=== PATIENT | male | born 1935 | race Caucasian/White ===

== ENCOUNTER 2019-01-23 14:40 | Emergency (ER) | payer OTHER, MEDICARE ==
--- NOTE | 2019-01-23 16:25 | RAD REPORT ---
EXAM DESCRIPTION: RADSacrum And Coccyx01/23/2019 4:00 pm CLINICAL HISTORY: Back pain status post fall FINDINGS: No fracture is seen. Osteoporosis
--- NOTE | 2019-01-23 17:09 | ER ---
Nurse's Notes [facility] Name: Leroy Palumbo Age: 83 yrs Sex: Male : 1935 Arrival Date: 01/23/2019 Time: 14:45 Bed 14 Private MD: Unknown, Unknown Diagnosis: Fracture of coccyx Presentation: 01/23 14:53 Presenting complaint: Patient states: i fell off my walker and hurt my tail bone, it hj happened a week ago; i have chronic back problems;. Transition of care: patient was not received from another setting of care. Onset of symptoms was January 23, 2019. Risk Assessment: Do you want to hurt yourself or someone else? Patient reports no desire to harm self or others. Initial Sepsis Screen: Does the patient meet any 2 criteria? No. Patient's initial sepsis screen is negative. Does the patient have a suspected source of infection? No. Patient's initial sepsis screen is negative. Care prior to arrival: None. 14:53 Method Of Arrival: Ambulatory 14:53 Acuity: LOI 4 hj Historical: - Allergies: 14:55 No Known Allergies; hj - PMHx: 14:55 chronic back problem; hj - PSHx: 14:55 back surgery; hj - Immunization history:: Adult Immunizations unknown. - Social history:: Smoking status: Patient/guardian denies using tobacco. - Ebola Screening: : No symptoms or risks identified at this time. Screenin:29 Abuse screen: Denies threats or abuse. Denies injuries from another. Nutritional ph screening: No deficits noted. Tuberculosis screening: No symptoms or risk factors identified. Fall Risk None identified. Assessment: 15:35 General: Appears in no apparent distress. comfortable, well groomed, Behavior is calm, ph cooperative, appropriate for age. Pain: Complains of pain in coccyx. Neuro: Level of Consciousness is awake, alert, obeys commands, Oriented to person, place, time, situation. Cardiovascular: Capillary refill < 3 seconds in bilateral Patient's skin is warm and dry. Respiratory: Airway is patent Respiratory effort is even, unlabored. Derm: Skin is intact, is healthy with good turgor, Skin is pink, warm \T\ dry. Musculoskeletal: Circulation, motion, and sensation intact. Range of motion: intact in all extremities. 16:30 Reassessment: Patient appears in no apparent distress at this time. Patient and/or ph family updated on plan of care and expected duration. Pain level reassessed. Patient is alert, oriented x 3, equal unlabored respirations, skin warm/dry/pink. 17:21 Reassessment: Patient appears in no apparent distress at this time. Patient and/or ph family updated on plan of care and expected duration. Pain level reassessed. Patient is alert, oriented x 3, equal unlabored respirations, skin warm/dry/pink. Pt d/c home w/ SO. Vital Signs: 14:55 BP 156 / 66; Pulse 65; Resp 18; Temp 98.1(O); Pulse Ox 99% on R/A; Weight 127.01 kg; hj Height 6 ft. 0 in. (182.88 cm); Pain 10/10; 17:31 BP 147 / 70; Pulse 64; Resp 18; Temp 97.8; Pulse Ox 99% on R/A; ph 14:55 Body Mass Index 37.98 (127.01 kg, 182.88 cm) ED Course: 14:45 Patient arrived in ED. ag5 14:46 Unknown, Unknown is Private Physician. ag5 14:54 Triage completed. hj 14:55 Arm band placed on left wrist. hj 15:07 Ajay Hilton NP is PHCP. pm1 15:07 Ran Cleaning MD is Attending Physician. pm1 15:08 Sonja Flood, SARA is Primary Nurse. ph 16:01 Sacrum And Coccyx XRAY In Process Unspecified. EDMS 17:30 Patient has correct armband on for positive identification. Bed in low position. Call ph light in reach. Side rails up X 1. Pulse ox on. NIBP on. 17:30 No provider procedures requiring assistance completed. Patient did not have IV access ph during this emergency room visit. Administered Medications: No medications were administered Outcome: 17:08 Discharge ordered by . pm1 17:31 Discharged to home via wheelchair, with significant other. ph 17:31 Condition: good 17:31 Discharge instructions given to patient, significant other, Instructed on discharge instructions, follow up and referral plans. Demonstrated understanding of instructions, follow-up care. 17:32 Patient left the ED. ph Signatures: Dispatcher [employer] EDNJ Sonja Flood RN RN ph Bairon Thakur RN RN Ajay Hilton, GREGORIO FOCUS PULLER pm1 Julito Pringle ag5 Corrections: (The following items were deleted from the chart) 14:54 14:52 Presenting complaint: [facility] 14:56 14:55 127.01 kg; Height 6 ft. 0 in.; BMI: 37.9; Pain 10; [facility] 14:57 14:55 Pulse 65bpm; Resp 18bpm; Pulse Ox 99% RA; Temp 98.1F Oral; 127.01 kg; Height 6 hj ft. 0 in.; BMI: 37.9; Pain 10; hj
--- NOTE | 2019-01-23 17:09 | EDPHYS ---
Physician Documentation [facility] Name: Leroy Palumbo Age: 83 yrs Sex: Male : 1935 Arrival Date: 01/23/2019 Time: 14:45 Bed 14 Private MD: Unknown, Unknown ED Physician Ran Cleaning HPI: 01/23 16:05 This 83 yrs old Male presents to ER via Ambulatory with complaints of Fall pm1 Injury. 16:05 Details of fall: The patient fell from an upright position, while standing. Onset: The pm1 symptoms/episode began/occurred 1 week(s) ago. Associated injuries: The patient sustained coccyx. Severity of symptoms: in the emergency department the symptoms are unchanged. The patient has not experienced similar symptoms in the past. The patient has not recently seen a physician. Patient with fall injury 1 week ago. Patient with mechanical fall while walking and landed on his rear end. No headache, head injury, neck pain, LOC, vomiting. Historical: - Allergies: 14:55 No Known Allergies; hj - PMHx: 14:55 chronic back problem; hj - PSHx: 14:55 back surgery; hj - Immunization history:: Adult Immunizations unknown. - Social history:: Smoking status: Patient/guardian denies using tobacco. - Ebola Screening: : No symptoms or risks identified at this time. ROS: 16:08 Constitutional: Negative for fever, chills, and weight loss, Eyes: Negative for injury, pm1 pain, redness, and discharge, ENT: Negative for injury, pain, and discharge, Neck: Negative for injury, pain, and swelling, Cardiovascular: Negative for chest pain, palpitations, and edema, Respiratory: Negative for shortness of breath, cough, wheezing, and pleuritic chest pain, Abdomen/GI: Negative for abdominal pain, nausea, vomiting, diarrhea, and constipation. 16:08 : Negative for injury, bleeding, discharge, and swelling, MS/Extremity: Negative for injury and deformity, Skin: Negative for injury, rash, and discoloration, Neuro: Negative for headache, weakness, numbness, tingling, and seizure. 16:08 Back: Positive for of the sacrum, Negative for radiated pain. Exam: 16:08 Constitutional: This is a well developed, well nourished patient who is awake, alert, pm1 and in no acute distress. Head/Face: Normocephalic, atraumatic. Eyes: Pupils equal round and reactive to light, extra-ocular motions intact. Lids and lashes normal. Conjunctiva and sclera are non-icteric and not injected. Cornea within normal limits. Periorbital areas with no swelling, redness, or edema. ENT: Nares patent. No nasal discharge, no septal abnormalities noted. Tympanic membranes are normal and external auditory canals are clear. Oropharynx with no redness, swelling, or masses, exudates, or evidence of obstruction, uvula midline. Mucous membranes moist. Neck: Trachea midline, no thyromegaly or masses palpated, and no cervical lymphadenopathy. Supple, full range of motion without nuchal rigidity, or vertebral point tenderness. No Meningismus. Chest/axilla: Normal chest wall appearance and motion. Nontender with no deformity. No lesions are appreciated. Cardiovascular: Regular rate and rhythm with a normal S1 and S2. No gallops, murmurs, or rubs. Normal PMI, no JVD. No pulse deficits. Respiratory: Lungs have equal breath sounds bilaterally, clear to auscultation and percussion. No rales, rhonchi or wheezes noted. No increased work of breathing, no retractions or nasal flaring. Abdomen/GI: Soft, non-tender, with normal bowel sounds. No distension or tympany. No guarding or rebound. No evidence of tenderness throughout. 16:08 Skin: Warm, dry with normal turgor. Normal color with no rashes, no lesions, and no evidence of cellulitis. MS/ Extremity: Pulses equal, no cyanosis. Neurovascular intact. Full, normal range of motion. 16:08 Back: normal spinal alignment noted, vertebral tenderness, is appreciated at sacrum and coccyx. 16:08 Neuro: Orientation: is normal, Motor: is normal, moves all fours, Sensation: is normal, no obvious gross deficits. Vital Signs: 14:55 BP 156 / 66; Pulse 65; Resp 18; Temp 98.1(O); Pulse Ox 99% on R/A; Weight 127.01 kg; hj Height 6 ft. 0 in. (182.88 cm); Pain 10/10; 17:31 BP 147 / 70; Pulse 64; Resp 18; Temp 97.8; Pulse Ox 99% on R/A; ph 14:55 Body Mass Index 37.98 (127.01 kg, 182.88 cm) MDM: 15:16 Patient medically screened. pm1 17:07 Data reviewed: vital signs. Data interpreted: Pulse oximetry: on room air is 99 %. pm1 Interpretation: normal. Counseling: I had a detailed discussion with the patient and/or guardian regarding: the historical points, exam findings, and any diagnostic results supporting the discharge/admit diagnosis, radiology results, the need for outpatient follow up, to return to the emergency department if symptoms worsen or persist or if there are any questions or concerns that arise at home. 01/23 15:22 Order name: Sacrum And Coccyx XRAY; Complete Time: 17:06 pm1 Administered Medications: No medications were administered Disposition: 18:42 Co-signature as Attending Physician, Ran Cleaning MD. rn Disposition: 01/23/19 17:08 Discharged to Home. Impression: Fracture of coccyx. - Condition is Stable. - Discharge Instructions: Tailbone Injury. - Medication Reconciliation Form, Thank You Letter, Antibiotic Education, Prescription Opioid Use form. - Follow up: Emergency Department; When: As needed; Reason: Worsening of condition. Follow up: Private Physician; When: 2 - 3 days; Reason: Recheck today's complaints, Continuance of care, Re-evaluation by your physician. - Problem is new. - Symptoms have improved. Signatures: Dispatcher [employer] EDMS Ran Cleaning MD MD rn Hall, Patricia, RN RN ph Joaquin, Henry, RN RN hj Marinas, Patrick, GREGORIO DEPARTMENT ADMINISTRATOR pm1 Corrections: (The following items were deleted from the chart) 17:11 17:08 01/23/2019 17:08 Discharged to Home. Impression: Contusion of lower back and pm1 pelvis - sacrum and coccyx. Condition is Stable. Forms are Medication Reconciliation Form, Thank You Letter, Antibiotic Education, Prescription Opioid Use. Follow up: Emergency Department; When: As needed; Reason: Worsening of condition. Follow up: Private Physician; When: 2 - 3 days; Reason: Recheck today's complaints, Continuance of care, Re-evaluation by your physician. Problem is new. Symptoms have improved. pm1 17:32 17:11 01/23/2019 17:08 Discharged to Home. Impression: Fracture of coccyx. Condition is ph Stable. Discharge Instructions: Tailbone Injury. Forms are Medication Reconciliation Form, Thank You Letter, Antibiotic Education, Prescription Opioid Use. Follow up: Emergency Department; When: As needed; Reason: Worsening of condition. Follow up: Private Physician; When: 2 - 3 days; Reason: Recheck today's complaints, Continuance of care, Re-evaluation by your physician. Problem is new. Symptoms have improved. pm1
== END 2019-01-23 17:32 | disposition home or self-care (01) ==
LOC: ER 14:40
DX: S32.2XXA Fracture of coccyx, initial encounter for closed fracture (principal); W18.30XA Fall on same level, unspecified, initial encounter; Y93.01 Activity, walking, marching and hiking; Y92.9 Unspecified place or not applicable
CPT/HCPCS: 72220; 99283

== ENCOUNTER 2019-02-13 11:23 | Emergency (ER) | payer OTHER, MEDICARE ==
--- NOTE | 2019-02-13 12:22 | RAD REPORT ---
EXAM DESCRIPTION: RAD - Knee Left 3 View - 02/13/2019 12:15 pm CLINICAL HISTORY: Left knee pain status post injury FINDINGS: No evidence of loosening of a left knee prosthesis No fracture or dislocation is seen. Osteoporosis If the patient has clinical symptoms to suggest an occult fracture CT would be recommended
--- NOTE | 2019-02-13 13:13 | ER ---
Nurse's Notes [facility] Name: Leroy Palumbo Age: 83 yrs Sex: Male : 1935 Arrival Date: 02/13/2019 Time: 11:25 Bed 23 Private MD: Osvaldo Kaba V Diagnosis: Pain in left knee Presentation: 02/13 11:29 Presenting complaint: Patient states: Fell onto left knee on Monday, reports pain since.aj 11:29 Acuity: LOI 4 aj 11:30 Care prior to arrival: None. Mechanism of Injury: Fall from standing position. Trauma aa5 event details: Injury occurred in the [facility]. 11:30 Method Of Arrival: Wheelchair aa5 11:30 Transition of care: patient was not received from another setting of care. Onset of aa5 symptoms was February 11, 2019. Risk Assessment: Do you want to hurt yourself or someone else? Patient reports no desire to harm self or others. Initial Sepsis Screen: Does the patient meet any 2 criteria? No. Patient's initial sepsis screen is negative. Does the patient have a suspected source of infection? No. Patient's initial sepsis screen is negative. Trauma Activation: Not Applicable Physician: ED Physician; Name: ; Notified At: ; Arrived At: Physician: General Surgeon; Name: ; Notified At: ; Arrived At: Physician: Radiology; Name: ; Notified At: ; Arrived At: Physician: Respiratory; Name: ; Notified At: ; Arrived At: Physician: Lab; Name: ; Notified At: ; Arrived At: Historical: - Allergies: 11:31 No Known Allergies; aj - PMHx: 11:35 chronic back problem; aa5 - PSHx: 11:35 back surgery; aa5 - Immunization history:: Flu vaccine status is unknown. - Immunization history: Last tetanus immunization: unknown. - Ebola Screening: : No symptoms or risks identified at this time. - Social history:: Smoking status: unknown. Screenin:40 Abuse screen: Denies threats or abuse. Nutritional screening: No deficits noted. aa5 Tuberculosis screening: No symptoms or risk factors identified. Fall Risk Fall in past 12 months (25 points). Ambulatory Aid- Crutches/Cane/Walker (15 pts). Total Hutchison Fall Scale indicates Low Risk Score (25-44 pts). Fall prevention measures have been instituted. Side Rails Up X 2 Placed close to Nursing Station. Primary Survey: 11:30 NO uncontrolled hemorrhage observed. A: The patient is alert. Airway: patent. aa5 Breathing/Chest: Chest inspection: symmetrical rise and fall of the chest. Circulation: Skin color: pink. Disability Alert. Exposure/Environment: There is no evidence of uncontrolled external bleeding. 11:40 Reassessment Airway Airway Patent Breathing/Chest Respiratory pattern Regular aa5 Respiratory effort Spontaneous Unlabored Chest inspection Symmetrical Circulation Color [place] Disability Alert. Secondary Survey: 11:30 HEENT: No deficits noted. Gastrointestinal: No deficits noted. : No deficits noted. aa5 Musculoskeletal: Reports pain in left knee. Assessment: 11:30 General: Appears in no apparent distress. comfortable, Behavior is calm, cooperative, aj appropriate for age. Pain: Complains of pain in left knee. Musculoskeletal: Reports pain in left knee. 11:35 General: Appears comfortable, Behavior is calm, cooperative. Pain: Complains of pain in aa5 left knee. Neuro: Level of Consciousness is awake, alert, obeys commands, Oriented to person, place, time, situation. Cardiovascular: Patient's skin is warm and dry. Respiratory: Airway is patent Respiratory effort is even, unlabored, Respiratory pattern is regular, symmetrical. GI: No signs and/or symptoms were reported involving the gastrointestinal system. : No signs and/or symptoms were reported regarding the genitourinary system. EENT: No signs and/or symptoms were reported regarding the EENT system. Derm: Skin is pink, warm \T\ dry. Musculoskeletal: Range of motion: intact in all extremities, Reports pain in left knee. Vital Signs: 11:30 BP 136 / 66; Pulse 94; Resp 16; Temp 98.4; Pulse Ox 96% on R/A; Weight 122.47 kg; aj Height 6 ft. 0 in. (182.88 cm); 13:01 BP 120 / 79; Pulse 72; Resp 16 S; Pulse Ox 98% on R/A; mg2 13:02 BP 120 / 72; Pulse 75; Resp 18; Pulse Ox 98% on R/A; mg2 13:41 BP 118 / 75; Pulse 76; Resp 18; Temp 98; Pulse Ox 100% on R/A; Pain 2/10; mg2 11:30 Body Mass Index 36.62 (122.47 kg, 182.88 cm) aj [place] Coma Score: 11:30 Eye Response: spontaneous(4). Verbal Response: oriented(5). Motor Response: obeys aj commands(6). Total: 15. Trauma Score (Adult): 11:30 Eye Response: spontaneous(1); Verbal Response: oriented(1); Motor Response: obeys aj commands(2); Systolic BP: > 89 mm Hg(4); Respiratory Rate: 10 to 29 per min(4); [place] Score: 15; Trauma Score: 12 13:41 Eye Response: spontaneous(1); Verbal Response: oriented(1); Motor Response: obeys mg2 commands(2); Systolic BP: > 89 mm Hg(4); Respiratory Rate: 10 to 29 per min(4); [place] Score: 15; Trauma Score: 12 ED Course: 11:25 Patient arrived in ED. rg4 11:26 Osvaldo Kaba MD is Private Physician. rg4 11:29 Triage completed. aj 11:30 Arm band placed on left wrist. Patient placed in waiting room, Patient notified of wait aj time. 11:30 Patient has correct armband on for positive identification. Bed in low position. Call aa5 light in reach. Side rails up X2. Adult w/ patient. 11:40 [facility] Shepherd [facility]C [facility] kb 11:40 Gio Nair MD is Attending Physician. kb 11:40 Patient maintains SpO2 saturation greater than 95% on room air. Thermoregulation: warm aa5 blanket given to patient. 11:44 Anastacia Willoughby RN is Primary Nurse. aa5 12:10 X-ray completed. Portable x-ray completed in exam room. Patient tolerated procedure sw well. 12:13 Knee Left 3 View XRAY In Process Unspecified. EDMS 12:55 Report given to SARA Luque. aa5 13:12 Osvaldo Kaba MD is Referral Physician. kb 13:42 No provider procedures requiring assistance completed. Patient did not have IV access mg2 during this emergency room visit. Administered Medications: No medications were administered Intake: 13:00 PO: 0ml; Total: 0ml. mg2 Outcome: 13:12 Discharge ordered by . kb 13:43 Discharged to home via wheelchair, with family. mg2 13:43 Condition: stable 13:43 Discharge instructions given to family, Instructed on discharge instructions, follow up and referral plans. Demonstrated understanding of instructions, follow-up care, splint care. 13:44 Patient's length of stay in the Emergency Department was greater than 2 hours. awaiting mg2 disposition. Patient's length of stay extended due to 13:45 Patient left the ED. mg2 Signatures: Dispatcher [employer] EDKenna Aguirre, CHARITY FUNDRAISER-C CHARITY FUNDRAISER-Rola Willson RN RN Anastacia Cruz, RN RN [id number] Carmina Roldan Rubi rg4 Rebel Jacob RN RN mg2
--- NOTE | 2019-02-13 13:13 | EDPHYS ---
Physician Documentation [facility] Name: Leroy Palumbo Age: 83 yrs Sex: Male : 1935 Arrival Date: 02/13/2019 Time: 11:25 Bed 23 Private MD: Osvaldo Kaba V ED Physician Gio Nair HPI: 02/13 13:17 This 83 yrs old Male presents to ER via Wheelchair with complaints of Fall kb Injury, Knee Pain. 12:50 Details of fall: The patient fell from an upright position. kb 13:17 Onset: The symptoms/episode began/occurred 3 day(s) ago. Associated injuries: The kb patient sustained left knee, painful injury, swelling. Severity of symptoms: At their worst the symptoms were moderate, in the emergency department the symptoms are unchanged. The patient has not experienced similar symptoms in the past. The patient has not recently seen a physician. Pt reports he fell onto his left knee 3 days ago. c/o pain to that knee. Uses walked due to back pain and has pain medication at home, but wanted to make sure there wasn't anything wrong. Historical: - Allergies: 11:31 No Known Allergies; aj - PMHx: 11:35 chronic back problem; aa5 - PSHx: 11:35 back surgery; aa5 - Immunization history:: Flu vaccine status is unknown. - Immunization history: Last tetanus immunization: unknown. - Ebola Screening: : No symptoms or risks identified at this time. - Social history:: Smoking status: unknown. ROS: 12:46 Constitutional: Negative for fever, chills, and weight loss, Neck: Negative for injury, kb pain, and swelling, Cardiovascular: Negative for chest pain, palpitations, and edema, Respiratory: Negative for shortness of breath, cough, wheezing, and pleuritic chest pain, Abdomen/GI: Negative for abdominal pain, nausea, vomiting, diarrhea, and constipation, Skin: Negative for injury, rash, and discoloration, Neuro: Negative for headache, weakness, numbness, tingling, and seizure. 12:46 MS/extremity: Positive for injury or acute deformity, pain, swelling, of the left knee, Negative for Exam: 12:47 Constitutional: This is a well developed, well nourished patient who is awake, alert, kb and in no acute distress. Head/Face: Normocephalic, atraumatic. Chest/axilla: Normal chest wall appearance and motion. Nontender with no deformity. No lesions are appreciated. Cardiovascular: Regular rate and rhythm with a normal S1 and S2. No gallops, murmurs, or rubs. Normal PMI, no JVD. No pulse deficits. Respiratory: Lungs have equal breath sounds bilaterally, clear to auscultation and percussion. No rales, rhonchi or wheezes noted. No increased work of breathing, no retractions or nasal flaring. Abdomen/GI: Soft, non-tender, with normal bowel sounds. No distension or tympany. No guarding or rebound. No evidence of tenderness throughout. Skin: Warm, dry with normal turgor. Normal color with no rashes, no lesions, and no evidence of cellulitis. Neuro: Awake and alert, GCS 15, oriented to person, place, time, and situation. Cranial nerves II-XII grossly intact. Motor strength 5/5 in all extremities. Sensory grossly intact. Cerebellar exam normal. Normal gait. 12:47 Musculoskeletal/extremity: Extremities: grossly normal except: noted in the left knee: pain, swelling, ROM: intact in all extremities, Circulation is intact in all extremities. Sensation intact. Weight bearing: can bear weight with assistance only, uses walker. Vital Signs: 11:30 BP 136 / 66; Pulse 94; Resp 16; Temp 98.4; Pulse Ox 96% on R/A; Weight 122.47 kg; aj Height 6 ft. 0 in. (182.88 cm); 13:01 BP 120 / 79; Pulse 72; Resp 16 S; Pulse Ox 98% on R/A; mg2 13:02 BP 120 / 72; Pulse 75; Resp 18; Pulse Ox 98% on R/A; mg2 13:41 BP 118 / 75; Pulse 76; Resp 18; Temp 98; Pulse Ox 100% on R/A; Pain 2/10; mg2 11:30 Body Mass Index 36.62 (122.47 kg, 182.88 cm) [place] Coma Score: 11:30 Eye Response: spontaneous(4). Verbal Response: oriented(5). Motor Response: obeys commands(6). Total: 15. Trauma Score (Adult): 11:30 Eye Response: spontaneous(1); Verbal Response: oriented(1); Motor Response: obeys aj commands(2); Systolic BP: > 89 mm Hg(4); Respiratory Rate: 10 to 29 per min(4); Andree Score: 15; Trauma Score: 12 13:41 Eye Response: spontaneous(1); Verbal Response: oriented(1); Motor Response: obeys mg2 commands(2); Systolic BP: > 89 mm Hg(4); Respiratory Rate: 10 to 29 per min(4); [place] Score: 15; Trauma Score: 12 MDM: 11:40 Patient medically screened. kb 12:50 Data reviewed: vital signs, nurses notes. Data interpreted: Pulse oximetry: on room air kb is 96 %. Interpretation: normal. Counseling: I had a detailed discussion with the patient and/or guardian regarding: the historical points, exam findings, and any diagnostic results supporting the discharge/admit diagnosis, radiology results, the need for outpatient follow up, a orthopedic surgeon, to return to the emergency department if symptoms worsen or persist or if there are any questions or concerns that arise at home. 02/13 11:29 Order name: Knee Left 3 View XRAY; Complete Time: 12:29 02/13 12:39 Order name: Knee Immobilizer; Complete Time: 12:53 kb Administered Medications: No medications were administered Disposition: 17:18 Co-signature as Attending Physician, Gio Nair MD I agree with the assessment and kdr plan of care. Disposition: 02/13/19 13:12 Discharged to Home. Impression: Pain in left knee. - Condition is Stable. - Discharge Instructions: Knee Pain, [id number]. - Medication Reconciliation Form, Thank You Letter, Antibiotic Education, Prescription Opioid Use form. - Follow up: Emergency Department; When: As needed; Reason: Worsening of condition. Follow up: Osvaldo Kaba MD; When: 2 - 3 days; Reason: Recheck today's complaints, Continuance of care, Re-evaluation by your physician. Signatures: Dispatcher [employer] EDKenna Aguirre, TALENT BUYER-C TALENT BUYER-CkRola Paz RN RN aj Rittger, Kevin, MD MD [facility] Anastacia Willoughby RN RN aa5 Rebel Jacob RN RN mg2 Corrections: (The following items were deleted from the chart) 13:45 13:12 02/13/2019 13:12 Discharged to Home. Impression: Pain in left knee. Condition is mg2 Stable. Forms are Medication Reconciliation Form, Thank You Letter, Antibiotic Education, Prescription Opioid Use. Follow up: Emergency Department; When: As needed; Reason: Worsening of condition. Follow up: Osvaldo Kaba; When: 2 - 3 days; Reason: Recheck today's complaints, Continuance of care, Re-evaluation by your physician. kb
== END 2019-02-13 13:45 | disposition home or self-care (01) ==
LOC: ER 11:23
DX: M25.562 Pain in left knee (principal)
CPT/HCPCS: 99284

== ENCOUNTER 2021-08-03 11:06 | Inpatient (IN) | payer MEDICARE, OTHER ==
[2021-08-03] MEDS ORDERED: NA CHLORIDE 0.9% 1,000 ML ONE ×2 (11:59→15:58)
[2021-08-03 12:22] LABS: Absolute Lymphocytes (CBC) 0.9 K/uL (0.7-4.9); Basophils % 0.4 % (0-1.3); Hematocrit 40.8 % (39.6-49.0); Lymphocytes % 8.9 % (15.3-44.8); MPV 7.5 fL (7.6-11.3); RBC Red Blood Cell Count 4.45 M/uL (4.33-5.43)
[2021-08-03 12:26] LABS: Protime INR 1.27
[2021-08-03 12:37] LABS: BUN Blood Urea Nitrogen 18 mg/dL (7-18); Bicarbonate 27 mmol/L (21-32); Glucose Level 134 mg/dL (74-106); Potassium 3.9 mmol/L (3.5-5.1); Sodium Level 139 mmol/L (136-145)
--- NOTE | 2021-08-03 13:34 | RAD REPORT ---
EXAM DESCRIPTION: CT - Head C Spine Cap Kristen Oliveira - 08/03/2021 1:16 pm CLINICAL HISTORY: Trauma, head and neck injury. Chest, abdomen and pelvis pain. unwitnessed fall, back pain, not eating, AMS COMPARISON: Sacrum And Coccyx dated 01/23/2019 TECHNIQUE: CT head without contrast. CT cervical spine without contrast with coronal and sagittal reformatted images. CT chest, abdomen and pelvis with IV contrast (approximately 100 mL nonionic IV contrast) with medina l and sagittal reformatted images of the spine. All CT scans are performed using dose optimization technique as appropriate and may include automated exposure control or mA/KV adjustment according to patient size. FINDINGS: CT HEAD WITHOUT CONTRAST: No intracranial hemorrhage, hydrocephalus or extra-axial fluid collection. Moderate generalized brain atrophy is present with moderate periventricular and deep white matter chronic microvascular ischemi c changes. No areas of brain edema or midline shift. The paranasal sinuses and mastoids are mostly clear. The calvarium is intact. CT CERVICAL SPINE WITHOUT CONTRAST: No fracture or subluxation. Moderate multilevel spondylosis is present throughout the cervical spine. The prevertebral soft tissues are normal in thickness. CT CHEST, ABDOMEN, PELVIS WITH CONTRAST: Mild linear opacities in both posterior lung bases likely represent atelectasis.No pneumothorax or pe ricardial/pleural fluid. No evidence of intra-abdominal visceral injury, free fluid or free air. Mild fatty liver. Small stone s are present in the right kidney without hydronephrosis. Small fat containing umbilical hernia. The bones are diffusely osteopenic. Vertebroplasty cement is seen in T11 and T12 vertebral bodies. Th ere is mild superior wedge compression deformity affecting L1 vertebral body. IMPRESSION: Questionable acute mild superior compression deformity affects the L1 vertebral body. Ot herwise, no trauma related findings are seen.
[2021-08-03 14:25] LABS: Urine Blood 2+ (Negative); Urine Glucose Negative (Negative); Urine Protein 2+ (Negative); Urine Specific Gravity >=1.030 (1.005-1.030)
[2021-08-03 15:00] LABS: Urine Bacteria <20 /HPF (NONE SEEN); Urine Mucus LIGHT /HPF (NONE SEEN); Urine RBC <5 /HPF (NONE SEEN)
--- NOTE | 2021-08-03 15:46 | EDPHYS ---
Physician Documentation [facility] Name: Leroy Palumbo Age: 85 yrs Sex: Male : 1935 Arrival Date: 08/03/2021 Time: 11:22 Bed 17 Private MD: ED Physician Ran Cleaning HPI: 08/03 12:19 This 85 yrs old Male presents to ER via EMS with complaints of Fall, back pain. rn 12:19 The patient presents with pain that is acute, and an injury. The symptoms are located rn in the low back. Onset: The symptoms/episode began/occurred 5 day(s) ago. The pain does not radiate. Associated signs and symptoms: Pertinent negatives: fever, headache, hematuria, incontinence, nausea, numbness, tingling, urinary retention. Modifying factors: The patient symptoms are alleviated by hydrocodone, the patient symptoms are aggravated by any movement. Severity of symptoms: At their worst the symptoms were moderate, in the emergency department the symptoms have improved. The patient has not experienced similar symptoms in the past. The patient has not recently seen a physician. reports fall last Monday, has been in pain in the low back since then. Reports taking hydrocodone and took 2 hydrocodone today that helps with the pain. states that patient with dementia and appears near his baseline currently. But also reports patient not eating or drinking much or getting out of bed secondary to pain recently. Denies any fever/cough/abdominal pain/vomiting/diarrhea.. Historical: - Allergies: 11:28 No Known Allergies; potts - Immunization history:: Adult Immunizations up to date. - Social history:: Patient/guardian denies using alcohol, street drugs, IV drugs, caffeine, tobacco products, Patient/guardian denies using Smoking status: Patient denies any tobacco usage or history of. - Family history:: not pertinent. - Hospitalizations: : No recent hospitalization is reported. ROS: 12:22 Constitutional: Negative for fever, chills, and weight loss, Eyes: Negative for injury, rn pain, redness, and discharge, ENT: Negative for injury, pain, and discharge, Neck: Negative for injury, pain, and swelling, Cardiovascular: Negative for chest pain, palpitations, and edema, Respiratory: Negative for shortness of breath, cough, wheezing, and pleuritic chest pain, Abdomen/GI: Negative for abdominal pain, nausea, vomiting, diarrhea, and constipation, Back: + back injury and pain : Negative for injury, bleeding, discharge, and swelling, MS/Extremity: Negative for injury and deformity, Skin: Negative for injury, rash, and discoloration, Neuro: Negative for headache, numbness, tingling, and seizure. Exam: 12:22 Constitutional: Overweight male, somnolent but awakens to voice Head/Face: rn Normocephalic, atraumatic. Eyes: Periorbital areas with no swelling, redness, or edema. ENT: Dry mucous membranes Neck: Trachea midline, no masses palpated, no vertebral point tenderness Cardiovascular: Tachycardic, irregular. No pulse deficits. Respiratory: No increased work of breathing, no retractions or nasal flaring. Abdomen/GI: Soft, non-tender Skin: Warm, dry MS/ Extremity: Pulses equal, no cyanosis. Neurovascular intact. Full, normal range of motion. Equal circumference. Neuro: Awake and alert, GCS 15, oriented to person, place, not time. Motor strength 4/5 in all extremities. Sensory grossly intact. Vital Signs: 11:24 BP 137 / 63; Pulse 131; Resp 20; Temp 97.9; Pulse Ox 92% ; Weight 117.93 kg; Height 6 potts ft. 0 in. (182.88 cm); 13:26 BP 137 / 82; Pulse 110; Resp 18; Pulse Ox 95% ; potts 14:33 BP 146 / 75; Pulse 127; Resp 18; Pulse Ox 96% 2 lpm ; mh5 16:41 BP 136 / 91; Pulse 72; Resp 18; Pulse Ox 93% ; potts 17:22 BP 122 / 100; Pulse 57; Resp 16; Pulse Ox 95% ; potts 18:21 BP 143 / 80; Pulse 96; Resp 18; Pulse Ox 96% ; potts 19:39 BP 165 / 104; Pulse 98; Resp 16; Temp 97.7; Pulse Ox 95% ; potts 11:24 Body Mass Index 35.26 (117.93 kg, 182.88 cm) potts MDM: 11:37 Patient medically screened. rn 15:44 Differential diagnosis: arthritis, Fatigue Fracture Osteoarthritis sprain, vertebral rn fracture. Data reviewed: vital signs, nurses notes, lab test result(s), radiologic studies, CT scan, and as a result, I will admit patient. Counseling: I had a detailed discussion with the patient and/or guardian regarding: the historical points, exam findings, and any diagnostic results supporting the discharge/admit diagnosis, lab results, radiology results, the need for further work-up and treatment in the hospital. Response to treatment: the patient's symptoms have mildly improved after treatment, and as a result, I will admit patient. Admission orders: after a detailed discussion of the patient's condition and case, the admit orders are written by me. ED course: Patient with L1 mild compression fracture, dehydration, malaise. Still tachycardic, will admit to Dr. Kaba for IV hydration and further care. Was notified.. 08/03 11:48 Order name: CBC with Diff; Complete Time: 13:36 08/03 11:48 Order name: Basic Metabolic Panel; Complete Time: 13:36 08/03 11:48 Order name: Protime (+inr); Complete Time: 13:36 08/03 11:48 Order name: Ptt, Activated; Complete Time: 13:36 08/03 11:48 Order name: Urine Microscopic Only; Complete Time: 15:25 08/03 14:25 Order name: Urine Dipstick-Ancillary; Complete Time: 15:25 EDPR 08/03 11:48 Order name: CT Traumagram (Head C Spine CAP W Con); Complete Time: 13:36 rn 08/03 12:21 Order name: EKG; Complete Time: 12:22 rn 08/03 16:49 Order name: COVID-19 SARS RT PCR (Document "Date of Onset" if Symptomatic) [facility] 08/03 19:25 Order name: SARS-COV-2 RT PCR [facility] 08/03 11:48 Order name: IV Start; Complete Time: 12:18 rn 08/03 11:48 Order name: Urine Dipstick-Ancillary (obtain specimen); Complete Time: 14:25 rn 08/03 12:21 Order name: EKG - Nurse/Tech; Complete Time: 12:55 rn Administered Medications: 12:18 Drug: NS 0.9% 500 ml Route: IV; Rate: bolus; Site: left antecubital; potts 16:42 Follow up: IV Status: Completed infusion potts 15:55 Drug: NS 0.9% 500 ml Route: IV; Rate: bolus; Site: left antecubital; ap3 15:55 Follow up: IV Status: Completed infusion ap3 16:04 Drug: NS 0.9% 1000 ml Route: IV; Rate: 125 ml/hr; Site: left antecubital; ap3 17:41 Follow up: Response: No adverse reaction potts 19:41 Follow up: IV Intake: 1000ml potts 16:04 Drug: Metoprolol 25 mg Route: PO; ap3 17:42 Follow up: Response: Marked relief of symptoms potts Disposition Summary: 08/03/21 15:46 Hospitalization Ordered Hospitalization Status: Observation rn Provider: Osvaldo Kaba rn Location: Telemetry/MedSurg (observation) rn Condition: Stable rn Problem: new rn Symptoms: have improved rn Bed/Room Type: Standard rn Room Assignment: 204(08/03/21 19:43) Diagnosis - Fracture of first lumbar vertebra rn - Dehydration rn - Tachycardia, unspecified rn Forms: - Medication Reconciliation Form rn - SBAR form rn Signatures: Dispatcher [employer] EDRan Keane MD MD rn Garcia, Cindy RN RN Rola Kaur RN RN 3 Pam Flores Corrections: (The following items were deleted from the chart) 11:27 11:26 PMHx: chronic back problem; [facility] 19:43 15:46 rn cg
--- NOTE | 2021-08-03 15:46 | ER ---
Nurse's Notes [facility] Name: Leroy Palumbo Age: 85 yrs Sex: Male : 1935 Arrival Date: 08/03/2021 Time: 11:22 Bed 17 Private MD: Diagnosis: Fracture of first lumbar vertebra;Dehydration;Tachycardia, unspecified Presentation: 08/03 11:24 Chief complaint: Patient states: back pain. Coronavirus screen: Client denies travel potts out of the [place] in the last 14 days. Ebola Screen: Patient denies exposure to infectious person. No symptoms or risks identified at this time. Initial Sepsis Screen: Does the patient meet any 2 criteria? RR > 20 per min. No. Patient's initial sepsis screen is negative. Does the patient have a suspected source of infection? No. Patient's initial sepsis screen is negative. Risk Assessment: Do you want to hurt yourself or someone else? Patient reports no desire to harm self or others. Onset of symptoms was July 30, 2021. 11:24 Method Of Arrival: EMS: [facility] potts 11:24 Acuity: LOI 4 potts Triage Assessment: 11:26 General: Appears comfortable, Behavior is calm, cooperative, quiet. Pain: Complains of potts pain in back. Historical: - Allergies: 11:28 No Known Allergies; potts - Immunization history:: Adult Immunizations up to date. - Social history:: Patient/guardian denies using alcohol, street drugs, IV drugs, caffeine, tobacco products, Patient/guardian denies using Smoking status: Patient denies any tobacco usage or history of. - Family history:: not pertinent. - Hospitalizations: : No recent hospitalization is reported. Screenin:28 Abuse screen: Denies threats or abuse. Denies injuries from another. Nutritional potts screening: No deficits noted. Tuberculosis screening: No symptoms or risk factors identified. Fall Risk Fall in past 12 months (25 points). Assessment: 11:27 Pain: Complains of pain in back. Musculoskeletal: Reports pain in back. potts 20:41 General: The patient is to admitted to the second floor room 204. Stephen RUIZ is the potts accepting nurse. . Vital Signs: 11:24 BP 137 / 63; Pulse 131; Resp 20; Temp 97.9; Pulse Ox 92% ; Weight 117.93 kg; Height 6 potts ft. 0 in. (182.88 cm); 13:26 BP 137 / 82; Pulse 110; Resp 18; Pulse Ox 95% ; potts 14:33 BP 146 / 75; Pulse 127; Resp 18; Pulse Ox 96% 2 lpm ; mh5 16:41 BP 136 / 91; Pulse 72; Resp 18; Pulse Ox 93% ; potts 17:22 BP 122 / 100; Pulse 57; Resp 16; Pulse Ox 95% ; potts 18:21 BP 143 / 80; Pulse 96; Resp 18; Pulse Ox 96% ; potts 19:39 BP 165 / 104; Pulse 98; Resp 16; Temp 97.7; Pulse Ox 95% ; potts 11:24 Body Mass Index 35.26 (117.93 kg, 182.88 cm) potts ED Course: 11:22 Patient arrived in ED. ds1 11:26 Triage completed. potts 11:28 Patient has correct armband on for positive identification. Bed in low position. Call potts light in reach. Side rails up X 1. Side rails up X2. Adult w/ patient. 11:28 No provider procedures requiring assistance completed. potts 11:37 Ran Cleaning MD is Attending Physician. rn 11:38 Arm band placed on. ap3 12:17 Inserted saline lock: 20 gauge in left antecubital area, using aseptic technique. Blood potts collected. 12:18 Basic Metabolic Panel Sent. potts 12:18 Protime (+inr) Sent. potts 12:18 Ptt, Activated Sent. potts 12:18 CBC with Diff Sent. potts 13:16 CT Traumagram (Head C Spine CAP W Con) In Process Unspecified. EDMS 13:23 Inserted saline lock:. potts 13:26 Inserted saline lock: 22 gauge in left wrist, using aseptic technique. potts 13:31 Pam Flores is Primary Nurse. potts 14:25 Urine Microscopic Only Sent. potts 15:45 Osvaldo Kaba MD is Hospitalizing Provider. rn 17:21 COVID-19 SARS RT PCR (Document "Date of Onset" if Symptomatic) Sent. potts Administered Medications: 12:18 Drug: NS 0.9% 500 ml Route: IV; Rate: bolus; Site: left antecubital; potts 16:42 Follow up: IV Status: Completed infusion potts 15:55 Drug: NS 0.9% 500 ml Route: IV; Rate: bolus; Site: left antecubital; ap3 15:55 Follow up: IV Status: Completed infusion ap3 16:04 Drug: NS 0.9% 1000 ml Route: IV; Rate: 125 ml/hr; Site: left antecubital; ap3 17:41 Follow up: Response: No adverse reaction potts 19:41 Follow up: IV Intake: 1000ml potts 16:04 Drug: Metoprolol 25 mg Route: PO; ap3 17:42 Follow up: Response: Marked relief of symptoms potts Intake: 19:41 IV: 1000ml; Total: 1000ml. potts Outcome: 15:46 Decision to Hospitalize by Provider. rn 20:41 Admitted to Med/surg accompanied by tech. potts 20:41 Condition: stable 20:41 Instructed on the need for admit. 21:03 Patient left the ED. mw2 Signatures: Dispatcher [employer] EDID Bernadine Schwartz ds1 Ran Cleaning MD MD rn Martinez, Maria mh5 Prokisch, Amanda, RN RN ap3 Rita Kate mw2 JarrettStagePam poe Corrections: (The following items were deleted from the chart) 11:27 11:26 PMHx: chronic back problem; potts potts
[2021-08-03] MEDS ORDERED: METOPROLOL TAR 25 MG TAB ONE (15:58)
--- NOTE | 2021-08-03 20:01 | P.HP ---
Certification for Inpatient Patient admitted to: Observation With expected LOS: <2 Midnights Practitioner: I am a practitioner with admitting privileges, knowledge of patient current condition, hospital course, and medical plan of care. Services: Services provided to patient in accordance with Admission requirements found in Title 42 Section 412.3 of the Code of Federal Regulations Patient History Date of Service: 08/03/21 Reason for admission: FALLEN AND NOT WALKING History of Present Illness: MR VAUGHN HAS SEVERE DEMENTIA NAD HE FELL ON THE BUTT A FEW DAYS AGO. USUALLY HE WALKS WITH WALKER. HE FELL AND IS NOT ABLE TO WALK ANY LONGER. Allergies NKDA Allergy (Uncoded 09/10/15 11:04) Unknown Home medications list reviewed: Yes Home Medications: NK [No Home Meds] 12/20/19 - Past Medical/Surgical History Diabetic: No -: Dementia -: PVD -: Lymphedema -: Osteoarthritis -: Incontinence -: Bilateral cataract removal -: Left knee replacement -: Neck & back sx - Social History Alcohol use: No Review of Systems 10-point ROS is otherwise unremarkable Physical Examination - Physical Exam General: Oriented x1, Moderate distress, Obese HEENT: Atraumatic, PERRLA, Mucous membr. moist/pink, EOMI, Sclerae nonicteric Neck: Supple, 2+ carotid pulse no bruit, No LAD, Without JVD or thyroid abnormality Respiratory: Clear to auscultation bilaterally, Normal air movement Cardiovascular: Regular rate/rhythm, Normal S1 S2 Gastrointestinal: Normal bowel sounds, No tenderness Musculoskeletal: No tenderness Integumentary: No rashes Neurological: Normal speech, Abnormal strength (NOT ABLE TO LIFT LEGS ABOVE THE BED.) Lymphatics: No axilla or inguinal lymphadenopathy - Studies Laboratory Data (last 24 hrs) 08/03/21 12:10: PT 14.6 H, INR 1.27, APTT 26.8 08/03/21 12:10: Sodium 139, Potassium 3.9, BUN 18, Creatinine 0.75, Glucose 134 H 08/03/21 12:10: WBC 9.70, Hgb 13.6, Hct 40.8, Plt Count 169 Assessment and Plan - Problems (Diagnosis) (1) Back injury Current Visit: Yes Status: Acute Plan: PT CONSULT PAIN MANAGE MRI OF LOWER SPINE AND PELVIS IN AM. (2) Alzheimer disease Current Visit: Yes Status: Chronic Plan: GRADUALLY WORSE IS TAKING CARE HIM AND DOING A GOOD JOB (3) Atrial flutter Current Visit: Yes Status: Chronic Qualifiers: Atrial flutter type: typical Qualified Code(s): I48.3 - Typical atrial flutter - Advance Directives Does patient have a Living Will: No Does patient have a Durable POA for Healthcare: No
[2021-08-03] MEDS ORDERED: ONDANSETRON 4 MG/2 ML VIAL IV PRN (21:25)
[2021-08-03] MEDS ORDERED: NA CHLORIDE 0.9% 1,000 ML IV SCH (21:25)
[2021-08-03 21:27] VITALS: BMI 33.5
--- NOTE | 2021-08-04 07:50 | EKG ---
Test Date: 2021-08-03 Test Time: 12:54:25 Cat Swamper: JOHN MEASUREMENT RESULTS: Intervals: Rate: 108 LA: QRSD: 92 QT: 344 QTc: 460 [place]: P: LA: QRS: -6 T: -6 INTERPRETIVE STATEMENTS: Atrial flutter with variable AV block Incomplete right bundle branch block Possible Anterior infarct, age undetermined Abnormal ECG Compared to ECG 08/03/2021 12:51:28 Incomplete right bundle-branch block now present Right superior axis no longer present T-wave abnormality no longer present Possible ischemia no longer present Myocardial infarct finding still present Electronically Signed On 08-04-21 07:48:11 DIETITIAN CHIEF by Chris Romano
--- NOTE | 2021-08-04 07:50 | EKG ---
Test Date: 2021-08-03 Test Time: 12:51:28 Lapper: JOHN MEASUREMENT RESULTS: Intervals: Rate: 119 NV: QRSD: 88 QT: 348 QTc: 489 [place]: P: NV: QRS: 197 T: 190 INTERPRETIVE STATEMENTS: Undetermined rhythm Right superior axis deviation Possible Anterior infarct, age undetermined T wave abnormality, consider inferior ischemia Abnormal ECG Compared to ECG 01/25/2012 15:02:30 Right superior axis now present Myocardial infarct finding now present T-wave abnormality now present Possible ischemia now present Sinus rhythm no longer present Atrial premature complex(es) no longer present Electronically Signed On 08-04-21 07:48:13 CANCELING AND CUTTING CONTROL CLERK by Chris Romano
--- NOTE | 2021-08-04 12:37 | RAD REPORT ---
EXAM DESCRIPTION: MRI - Brain Wo Cont - 08/04/2021 12:19 pm CLINICAL HISTORY: ams COMPARISON: No comparisons TECHNIQUE: Sagittal T1-weighted images were obtained along with PD/heavily T2-weighted and T2-FLAIR images. Axial DWI and ADC mapping sequences were also obtained along with coronal heavily T2-weighted images were obtained. FINDINGS: No intracranial hemorrhage, mass or acute infarction. There is no edema or shift of midlin e structures. No extra-axial fluid collections. Signal voids are seen as a normal finding in the tian r intracranial vessels. Mild to moderate chronic small vessel ischemic changes. 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 Tiny remote right cerebellar infarct. Cerebral atrophy w hich is age advanced. Mucous retention cysts in the left maxillary sinus. IMPRESSION: No acute intracranial abnormality. Specifically, no evidence of acute infarct. Mild to moderate chronic small vessel ischemic changes and age advanced cerebral atrophy.
[2021-08-04] MEDS: TRAMADOL HCL 50 MG TAB PO PRN (17:06)
--- NOTE | 2021-08-04 17:38 | P.PN ---
Subjective Date of Service: 08/04/21 Chief Complaint: FALLEN AND NOT WALKING Subjective: Improving BACK PAIN, WEAK. NO CHEST PAIN. Physical Examination - Vital Signs Temperature: 97.4 F Blood Pressure: 158/79 Pulse: 87 Respirations: 19 Pulse Ox (%): 97 - Physical Exam General: Oriented x2, Moderate distress, Obese HEENT: Atraumatic, PERRLA, EOMI Neck: Supple, JVD not distended Respiratory: Clear to auscultation bilaterally, Normal air movement Cardiovascular: Regular rate/rhythm, Normal S1 S2 Gastrointestinal: Normal bowel sounds, No tenderness Musculoskeletal: No tenderness Integumentary: No rashes Neurological: Normal speech, Normal tone, Normal affect Lymphatics: No axilla or inguinal lymphadenopathy - Studies Medications List Reviewed: Yes Assessment And Plan - Current Problems (Diagnosis) (1) Back injury Current Visit: Yes Status: Acute Plan: PT CONSULT PAIN MANAGE MRI OF LOWER SPINE AND PELVIS IN AM. CT WAS DONE. WILL AVOID MRI. START PT. REFER TO REHAB IF DOES NOT WALK. REHAB FLOOR HAS WAITING LIST. MAY NEED NH FOR A WHILE. Qualifiers: Encounter type: subsequent encounter Qualified Code(s): S39.92XD - Unspecified injury of lower back, subsequent encounter (2) Alzheimer disease Current Visit: Yes Status: Chronic Plan: GRADUALLY WORSE IS TAKING CARE HIM AND DOING A GOOD JOB (3) Atrial flutter Current Visit: Yes Status: Chronic Qualifiers: Atrial flutter type: typical Qualified Code(s): I48.3 - Typical atrial flutter
[2021-08-05] MEDS: ENOXAPARIN 40 MG/0.4 ML SQ SCH (10:17)
[2021-08-05] MEDS: LOSARTAN POTASSIUM 50 MG TABLET PO SCH (10:17)
--- NOTE | 2021-08-05 13:04 | P.PN ---
Subjective Date of Service: 08/05/21 Chief Complaint: FALLEN AND NOT WALKING Subjective: Improving BACK PAIN, WEAK. NO CHEST PAIN. HE IS ABLE TO TALK NOW. FULLY AWAKE. Physical Examination - Vital Signs Temperature: 97.4 F Blood Pressure: 131/58 Pulse: 68 Respirations: 16 Pulse Ox (%): 96 - Physical Exam General: Oriented x2, Mild distress, Obese HEENT: Atraumatic, PERRLA, EOMI Neck: Supple, JVD not distended Respiratory: Clear to auscultation bilaterally, Normal air movement Cardiovascular: Regular rate/rhythm, Normal S1 S2 Gastrointestinal: Normal bowel sounds, No tenderness Musculoskeletal: No tenderness Integumentary: No rashes Neurological: Normal speech, Normal tone, Normal affect Lymphatics: No axilla or inguinal lymphadenopathy - Studies Medications List Reviewed: Yes Assessment And Plan - Current Problems (Diagnosis) (1) Back injury Current Visit: Yes Status: Acute Plan: PT CONSULT PAIN MANAGE MRI OF LOWER SPINE AND PELVIS IN AM. CT WAS DONE. WILL AVOID MRI. STILL WAITING FOR PT TO GIVE OPINION . HE IS NOT STABLE FOR HOME YET. PHYSICALLY FALL RISK. Qualifiers: Encounter type: subsequent encounter Qualified Code(s): S39.92XD - Unspecified injury of lower back, subsequent encounter (2) Alzheimer disease Current Visit: Yes Status: Chronic Plan: GRADUALLY WORSE IS TAKING CARE HIM AND DOING A GOOD JOB (3) Atrial flutter Current Visit: Yes Status: Chronic Qualifiers: Atrial flutter type: typical Qualified Code(s): I48.3 - Typical atrial flutter
[2021-08-06] MEDS: LOSARTAN POTASSIUM 50 MG TABLET PO SCH (09:14)
[2021-08-06] MEDS: ENOXAPARIN 40 MG/0.4 ML SQ SCH (09:15)
[2021-08-06] MEDS: TRAMADOL HCL 50 MG TAB PO PRN (10:17)
[2021-08-06 20:39] VITALS: BP 168/79; TEMP 98
[2021-08-06 20:49] VITALS: O2SAT 96
--- NOTE | 2021-08-07 13:05 | P.DS ---
Admission Date: 08/04/21 Discharge Date: 08/07/21 Disposition: TRANSFER TO [facility] Reason for Admission: FALLEN AND NOT WALKING - Problems (1) Back injury Status: Acute Qualifiers: Encounter type: subsequent encounter Qualified Code(s): S39.92XD - Unspecified injury of lower back, subsequent encounter (2) Alzheimer disease Status: Chronic (3) Atrial flutter Status: Chronic Qualifiers: Atrial flutter type: typical Qualified Code(s): I48.3 - Typical atrial flutter Brief History of Present Illness: MR VAUGHN HAS SEVERE DEMENTIA NAD HE FELL ON THE BUTT A FEW DAYS AGO. USUALLY HE WALKS WITH WALKER. HE FELL AND IS NOT ABLE TO WALK ANY LONGER. Vital Signs/Physical Exam: Temp Pulse Resp BP Pulse Ox 98.0 F 74 18 168/79 H 94 08/06/21 20:00 08/06/21 20:00 08/06/21 20:00 08/06/21 20:00 08/06/21 20:00 Laboratory Data at Discharge: WBC 9.70 K/uL (4.3-10.9) 08/03/21 12:10 Hgb 13.6 g/dL (13.6-17.9) 08/03/21 12:10 Hct 40.8 % (39.6-49.0) 08/03/21 12:10 Plt Count 169 K/uL (152-406) 08/03/21 12:10 PT 14.6 SECONDS (9.5-12.5) H 08/03/21 12:10 INR 1.27 08/03/21 12:10 APTT 26.8 SECONDS (24.3-36.9) 08/03/21 12:10 Sodium 139 mmol/L (136-145) 08/03/21 12:10 Potassium 3.9 mmol/L (3.5-5.1) 08/03/21 12:10 BUN 18 mg/dL (7-18) 08/03/21 12:10 Creatinine 0.75 mg/dL (0.55-1.3) 08/03/21 12:10 Glucose 134 mg/dL (74-106) H 08/03/21 12:10 Home Medications: Enoxaparin Sodium [Lovenox 40 MG INJ] 40 mg SQ DAILY 30 Days #30 syr 08/06/21 Losartan Potassium [Cozaar] 50 mg PO DAILY 30 Days #30 tablet 08/06/21 traMADol HCL [Ultram] 50 mg PO Q4HP PRN #10 tab 08/06/21 New Medications: Losartan Potassium [Cozaar] 50 mg PO DAILY 30 Days #30 tablet Enoxaparin Sodium [Lovenox 40 MG INJ] 40 mg SQ DAILY 30 Days #30 syr traMADol HCL [Ultram] 50 mg PO Q4HP PRN #10 tab PRN Reason: Pain Followup: Osvaldo Kaba MD [Primary Care Provider] -
== END 2021-08-06 20:50 | DRG 914 ==
LOC: ER 11:06 → ERHOLD 16:10 → 2ND 20:51 → OBSVTOIN 08-04 18:23
PROVIDERS: ADMIT Internal Medicine; ATTEND Internal Medicine
DX: S39.92XA Unspecified injury of lower back, initial encounter (principal); I48.3 Typical atrial flutter; I48.92 Unspecified atrial flutter; E86.0 Dehydration; R00.0 Tachycardia, unspecified; G30.9 Alzheimer's disease, unspecified; F02.80 Dementia in other diseases classified elsewhere, unspecified severity, without behavioral disturbance, psychotic disturbance, mood disturbance, and anxiety; W18.30XA Fall on same level, unspecified, initial encounter; Z79.899 Other long term (current) drug therapy; Z96.652 Presence of left artificial knee joint; Z20.822 Contact with and (suspected) exposure to COVID-19
CPT/HCPCS: 36415; 70450; 70551; 71260; 72125; 74177; 80048; 81003; 81015; 85025; 85610; 85730; 93005; 96360; 96361; 97116; 97161; 97530; 99285; G0378; J1650; J7030; Q9967; U0003

== ENCOUNTER 2021-11-17 16:49 | Inpatient (IN) | payer OTHER ==
[2021-11-17 18:51] LABS: Absolute Lymphocytes (CBC) 1.5 K/uL (0.7-4.9); Hematocrit 33.2 % (39.6-49.0); Lymphocytes % 21.7 % (15.3-44.8); MPV 7.1 fL (7.6-11.3); RBC Red Blood Cell Count 3.66 M/uL (4.33-5.43)
[2021-11-17 18:54] LABS: Protime INR 1.44
--- NOTE | 2021-11-17 19:04 | ER ---
Nurse's Notes [facility] Name: Leroy Palumbo Age: 86 yrs Sex: Male : 1935 Arrival Date: 11/17/2021 Time: 16:52 Bed 2 Private MD: Diagnosis: Cellulitis of right lower limb;Tachycardia, unspecified;Other malaise and fatigue Presentation: 11/17 16:52 Chief complaint: EMS states: SENT FROM [facility] FOR "EXTRA SLEEPY". Coronavirus bp screen: At this time, the client does not indicate any symptoms associated with coronavirus-19. Ebola Screen: No symptoms or risks identified at this time. Initial Sepsis Screen: Does the patient meet any 2 criteria? No. Patient's initial sepsis screen is negative. Does the patient have a suspected source of infection? No. Patient's initial sepsis screen is negative. Risk Assessment: Do you want to hurt yourself or someone else? Patient reports no desire to harm self or others. Onset of symptoms is unknown. Care prior to arrival: Glucose check: 114. 16:52 Method Of Arrival: EMS: [facility] bp 16:52 Acuity: LOI 3 bp Triage Assessment: 16:52 General: Appears in no apparent distress. Behavior is drowsy. Pain: Unable to use pain bp scale. Does not appear to understand pain scale. EENT: No deficits noted. Neuro: Level of Consciousness is awake, Oriented to none Speech with expressive aphasia noted. Cardiovascular: Rhythm is sinus rhythm. Respiratory: No deficits noted. GI: No signs and/or symptoms were reported involving the gastrointestinal system. : No signs and/or symptoms were reported regarding the genitourinary system. Derm: Skin is red, Skin temperature is hot RLE. Musculoskeletal: No deficits noted. Historical: - Allergies: 16:55 No Known Allergies; bp - Home Meds: 16:55 Unable to obtain [Active]; bp - PMHx: 16:55 Unable to Obtain; bp - Immunization history:: Adult Immunizations up to date. - Social history:: Smoking status: Patient denies any tobacco usage or history of. Screenin:04 Abuse screen: Denies threats or abuse. Denies injuries from another. Nutritional bp screening: No deficits noted. Tuberculosis screening: No symptoms or risk factors identified. Fall Risk None identified. Assessment: 16:52 General: SEE TRIAGE NOTE. bp 18:00 Reassessment: No changes from previously documented assessment. Patient and/or family bp updated on plan of care and expected duration. Pain level reassessed. Vital Signs: 16:52 BP 170 / 88; Pulse 99; Resp 15; Temp 98.6; Pulse Ox 97% ; bp 18:00 BP 172 / 95; Pulse 102; Resp 15; Pulse Ox 95% ; bp 22:12 BP 147 / 47; Pulse 105; Resp 20; Pulse Ox 100% on R/A; st1 ED Course: 16:52 Patient arrived in ED. bp 16:53 Raheem Ronquillo DO is Attending Physician. ms3 16:55 Triage completed. bp 17:01 Arm band placed on. bp 17:04 Patient has correct armband on for positive identification. Bed in low position. Call bp light in reach. Side rails up X2. 17:05 Cameron Barakat, SARA is Primary Nurse. bp 18:30 Inserted saline lock: 20 gauge in right antecubital area, using aseptic technique. bp Blood collected. 19:02 Александр Cleaning MD is Hospitalizing Provider. ms3 19:41 Primary Nurse role handed off by Cameron Barakat, SARA mw2 19:49 Calista Ford, SARA is Primary Nurse. st1 20:11 COVID-19/FLU A+B (Document "Date of Onset" if Symptomatic) Sent. st1 22:13 No provider procedures requiring assistance completed. Patient admitted, IV remains in st1 place. Administered Medications: 20:27 Drug: Cefepime 1 grams Route: IVPB; Rate: 200 ml/hr; Infused Over: 30 mins; Site: right st1 antecubital; 21:13 Follow up: Response: No adverse reaction; IV Status: Completed infusion st1 20:30 Drug: NS 0.9% 1000 ml Route: IV; Rate: 1000 ml; Site: right antecubital; as6 21:12 Drug: vancoMYCIN 1 grams Route: IVPB; Infused Over: 2 hrs; Site: right antecubital; st1 Outcome: 19:03 Decision to Hospitalize by Provider. ms3 22:13 Admitted to Med/surg accompanied by tech, via stretcher, room 207, with chart. st1 22:13 Condition: good 22:13 Instructed on the need for admit. 23:18 Patient left the ED. vc1 Signatures: Cameron Barakat, RN RN bp Rita Kate mw2 Raheem Ronquillo, DO ROYAL ms3 Carlos Holly, RN RN as6 Calista Ford, RN RN st1 Marianne Callahan RN RN vc1
--- NOTE | 2021-11-17 19:04 | EDPHYS ---
Physician Documentation [facility] Name: Leroy Palumbo Age: 86 yrs Sex: Male : 1935 Arrival Date: 11/17/2021 Time: 16:52 Bed 2 Private MD: ED Physician Raheem Ronquillo HPI: 11/17 16:55 This 86 yrs old Male presents to ER via EMS with complaints of FATIGUE. ms3 16:55 The patient's rash thought to be caused by Cellulitis. The rash is located on the right ms3 hayes. The rash can be described as erythematous. Onset: The symptoms/episode began/occurred unknown. Associated signs and symptoms:. 86-year-old male presents via [facility] from Health system for increased fatigue. Per EMS nursing staff was unaware of patient's medical problems, or onset.. Historical: - Allergies: 16:55 No Known Allergies; bp - Home Meds: 16:55 Unable to obtain [Active]; bp - PMHx: 16:55 Unable to Obtain; bp - Immunization history:: Adult Immunizations up to date. - Social history:: Smoking status: Patient denies any tobacco usage or history of. ROS: 16:55 Unable to obtain ROS due to baseline dementia. ms3 Exam: 16:55 Constitutional: This is a well developed, well nourished patient who is awake, alert, ms3 and in no acute distress. Head/Face: Normocephalic, atraumatic. Eyes: Pupils equal round and reactive to light, extra-ocular motions intact. Lids and lashes normal. Conjunctiva and sclera are non-icteric and not injected. Periorbital areas with no swelling, redness, or edema. Chest/axilla: Normal chest wall appearance and motion. Nontender with no deformity. Cardiovascular: Regular rate and rhythm with a normal S1 and S2. No gallops, murmurs, or rubs. Normal PMI, no JVD. No pulse deficits. Respiratory: Lungs have equal breath sounds bilaterally, clear to auscultation and percussion. No rales, rhonchi or wheezes noted. No increased work of breathing, no retractions or nasal flaring. Abdomen/GI: Soft, non-tender, with normal bowel sounds. No distension or tympany. No guarding or rebound. No evidence of tenderness throughout. 16:55 Skin: cellulitis, that is moderate, on the right leg and right hayes. 18:43 ECG was reviewed by the Attending Physician. ms3 Vital Signs: 16:52 BP 170 / 88; Pulse 99; Resp 15; Temp 98.6; Pulse Ox 97% ; bp 18:00 BP 172 / 95; Pulse 102; Resp 15; Pulse Ox 95% ; bp 22:12 BP 147 / 47; Pulse 105; Resp 20; Pulse Ox 100% on R/A; st1 MDM: 16:54 Patient medically screened. ms3 16:55 Differential diagnosis: Cellulitis vs sepsis. ms3 19:03 Data reviewed: vital signs, nurses notes, lab test result(s). Counseling: I had a ms3 detailed discussion with the patient and/or guardian regarding: the historical points, exam findings, and any diagnostic results supporting the discharge/admit diagnosis, lab results, the need for further work-up and treatment in the hospital. ED course: Discussed case with Milton, nurse practitioner, and patient to be admitted to Dr. Cleaning. All questions were answered. Patient remains in stable condition in the emergency department.. 11/17 16:55 Order name: Blood Culture Adult (2) ms3 11/17 16:55 Order name: CBC with Diff; Complete Time: 19:01 ms3 11/17 16:55 Order name: CMP; Complete Time: 19:20 ms3 11/17 16:55 Order name: Lactate; Complete Time: 19:20 ms3 11/17 16:55 Order name: Protime (+inr); Complete Time: 19:01 ms3 11/17 16:55 Order name: Ptt, Activated; Complete Time: 19:01 ms3 11/17 19:25 Order name: Extremity Venous Uni Ltd US la1 11/17 19:25 Order name: Foot Right 3 View XRAY la1 11/17 19:41 Order name: COVID-19/FLU A+B (Document "Date of Onset" if Symptomatic) mw2 11/17 20:34 Order name: RAD EDMS 11/17 20:35 Order name: US EDMS 11/17 21:21 Order name: COVID-19/FLU A+B EDMS 11/17 16:55 Order name: Cardiac monitoring; Complete Time: 18:36 ms3 11/17 16:55 Order name: EKG - Nurse/Tech; Complete Time: 19:05 ms3 11/17 16:55 Order name: IV Saline Lock - Large Bore; Complete Time: 18:35 ms3 11/17 16:55 Order name: Labs collected and sent; Complete Time: 18:35 ms3 11/17 16:55 Order name: O2 Per Protocol; Complete Time: 18:35 ms3 11/17 16:55 Order name: O2 Sat Monitoring; Complete Time: 18:35 ms3 EC:43 Rate is 102 beats/min. QRS interval is normal. Clinical impression: Atrial fibrillation ms3 with RVR. Administered Medications: 20:27 Drug: Cefepime 1 grams Route: IVPB; Rate: 200 ml/hr; Infused Over: 30 mins; Site: right st1 antecubital; 21:13 Follow up: Response: No adverse reaction; IV Status: Completed infusion st1 20:30 Drug: NS 0.9% 1000 ml Route: IV; Rate: 1000 ml; Site: right antecubital; as6 21:12 Drug: vancoMYCIN 1 grams Route: IVPB; Infused Over: 2 hrs; Site: right antecubital; st1 Disposition: 19:04 Chart complete. ms3 Disposition Summary: 11/17/21 19:03 Hospitalization Ordered Hospitalization Status: Inpatient Admission ms3 Provider: Александр Cleaning ms3 Location: Telemetry/MedSurg (Inpatient) ms3 Condition: Stable ms3 Problem: new ms3 Symptoms: are unchanged ms3 Bed/Room Type: Standard ms3 Room Assignment: 207(11/17/21 21:44) Diagnosis - Cellulitis of right lower limb ms3 - Tachycardia, unspecified ms3 - Other malaise and fatigue ms3 Forms: - Medication Reconciliation Form ms3 - SBAR form ms3 Signatures: Dispatcher [employer] EDMS Milton Christy, ANTONIA-Radha NAVARROP-Kandis Burnett, RN RN cg Cameron Barakat RN RN Raheem Medrano DO DO ms3 Carlos Holly RN RN as6 Calista Ford RN RN st1 Corrections: (The following items were deleted from the chart) 16:55 16:55 Accucheck ordered. ms3 ms3 21:44 19:03 ms3 cg
[2021-11-17 19:09] LABS: ALT/SGPT 20 U/L (12-78); AST/SGOT 26 U/L (15-37); Albumin 2.5 g/dL (3.4-5.0); Alkaline Phosphatase 150 U/L (45-117); BUN Blood Urea Nitrogen 12 mg/dL (7-18); Bicarbonate 31 mmol/L (21-32); Bilirubin Total 0.7 mg/dL (0.2-1.0); Glucose Level 103 mg/dL (74-106); Potassium 3.7 mmol/L (3.5-5.1); Protein, Total 7.2 g/dL (6.4-8.2); Sodium Level 137 mmol/L (136-145)
--- NOTE | 2021-11-17 19:42 | P.HP ---
Certification for Inpatient Patient admitted to: Inpatient With expected LOS: >2 Midnights Patient will require the following post-hospital care: None Practitioner: I am a practitioner with admitting privileges, knowledge of patient current condition, hospital course, and medical plan of care. Services: Services provided to patient in accordance with Admission requirements found in Title 42 Section 412.3 of the Code of Federal Regulations Patient History Date of Service: 11/17/21 History of Present Illness: 86-year-old male with history of dementia, atrial flutter, hypertension currently being treated for DVT of the right lower extremity presented to the emergency department for cellulitis of the right lower extremity. Patient has had some redness/swelling over the course of the last week or so but per his ex- at bedside has gotten significantly worse. Patient was evaluated in the emergency department his labs were unremarkable and x-ray and ultrasound of the right lower extremity are currently pending. Patient was given vancomycin/cefepime ED provider wishes to admit for further evaluation and management. Patient also does have a wound present to the lateral aspect of the fifth toe. Patient was started on Eliquis 10 p.o. twice daily on the . Allergies NKDA Allergy (Uncoded 09/10/15 11:04) Unknown Home Medications: Enoxaparin Sodium [Lovenox 40 MG INJ] 40 mg SQ DAILY 30 Days #30 syr 08/06/21 Losartan Potassium [Cozaar] 50 mg PO DAILY 30 Days #30 tablet 08/06/21 traMADol HCL [Ultram] 50 mg PO Q4HP PRN #10 tab 08/06/21 - Past Medical/Surgical History Diabetic: No -: Dementia -: PVD -: Lymphedema -: Osteoarthritis -: Incontinence -: DVT -: Atrial flutter -: Hypertension -: Bilateral cataract removal -: Left knee replacement -: Neck & back sx Psychosocial/ Personal History: Patient is a resident of [facility] - Social History Alcohol use: No Caffeine use: No Place of Residence: Home Review of Systems is unable to be obtained Physical Examination - Physical Exam General: Alert, Oriented x1 HEENT: Atraumatic Neck: Supple Respiratory: Clear to auscultation bilaterally, Normal air movement Cardiovascular: Regular rate/rhythm, Normal S1 S2 Capillary refill: <2 Seconds Gastrointestinal: Normal bowel sounds, No tenderness Musculoskeletal: Erythema, Tenderness, Warmth Integumentary: Tenderness/swelling, Erythema, Warmth, Venous stasis ulcer Neurological: Normal speech - Studies Laboratory Data (last 24 hrs) 11/17/21 18:30: PT 16.0 H, INR 1.44, APTT 33.9 11/17/21 18:30: Sodium 137, Potassium 3.7, BUN 12, Creatinine 0.55, Glucose 103, Total Bilirubin 0.7, AST 26, ALT 20, Alkaline Phosphatase 150 H 11/17/21 18:30: WBC 6.9, Hgb 11.0 L D, Hct 33.2 L D, Plt Count 229 Assessment and Plan - Plan Assessment: Right lower extremity cellulitis Subacute DVT right lower extremity on anticoagulation History atrial flutter Dementia Hypertension Plan: Right lower extremity cellulitis: Continue broad-spectrum antibiotics vancomycin/cefepime, x-ray of right foot pending to evaluate ulceration of fifth toe. Patient is not diabetic does have recent history of DVT which was diagnosed approximately 1 week ago. Ultrasound pending. Subacute DVT right lower extremity on anticoagulation: Continue Eliquis was started on Eliquis 10 mg p.o. twice daily on 11/11/2021 will reduce dose to 5 mg p.o. twice daily but continue. History atrial flutter: Monitor on telemetry currently rate controlled appears to in sinus rhythm at this time. Dementia: Obtain and continue home meds Hypertension: Obtain and continue home meds DVT PPX: Continue Eliquis Code status: Full Discharge Plan: Home Plan to discharge in: 72 Hours - Advance Directives Does patient have a Living Will: No Does patient have a Durable POA for Healthcare: No - Code Status/Comfort Care Code Status Assessed: Yes (Full code) Critical Care: No Time Spent Managing Pts Care (In Minutes): 55
[2021-11-17] MEDS ORDERED: NA CHLORIDE 0.9% 1,000 ML ONE (20:17)
[2021-11-17] MEDS ORDERED: CEFEPIME 1 GM/VIAL ONE (20:17)
[2021-11-17] MEDS ORDERED: NA CHLORIDE 0.9% 250 ML ONE ×2 (20:17→23:17)
[2021-11-17] MEDS ORDERED: NA CHLORIDE 0.9% 50 ML ONE (20:17)
[2021-11-17] MEDS ORDERED: VANCOMYCIN 1 GM/VIAL ONE ×2 (20:17→23:17)
--- NOTE | 2021-11-17 20:34 | RAD REPORT ---
EXAM DESCRIPTION: RAD - Foot Right 3 View - 11/17/2021 8:15 pm CLINICAL HISTORY: Right foot pain and swelling FINDINGS: Postsurgical changes are present. No fracture or dislocation seen. No bony destructive lesion noted. Bones are osteoporotic
--- NOTE | 2021-11-17 20:34 | RAD REPORT ---
EXAM DESCRIPTION: USEkanchan Venous Uni Ltd11/17/2021 8:28 pm CLINICAL HISTORY: Right leg swelling. COMPARISON: 2019 FINDINGS: Right common femoral, superficial femoral, popliteal and right posterior tibial veins are compressible and demonstrate augmentation. Doppler demonstrates good flow. Grayscale, color and spectral analysis performed on all vessels IMPRESSION: No evidence of deep venous thrombosis involving the right lower extremity.
[2021-11-17 21:21] LABS: SARS-COV-2 RT PCR NEGATIVE (NEGATIVE)
[2021-11-17] MEDS ORDERED: VANCOMYCIN 1 GM in NA CHLORIDE 0.9% 250 ML IVPB SCH (22:07)
[2021-11-17] MEDS: CEFEPIME 1 GM in NA CHLORIDE 0.9% 100 ML IV SCH (22:07)
[2021-11-17] MEDS ORDERED: ONDANSETRON 4 MG/2 ML VIAL IV PRN (22:07)
[2021-11-17] MEDS ORDERED: VANCOMYCIN 750 MG in NA CHLORIDE 0.9% 150 ML IVPB ONE (23:00)
[2021-11-17] MEDS: APIXABAN 5 MG TABLET PO SCH (23:24)
[2021-11-18 04:57] LABS: Urine Appearance Clear (Clear); Urine Bilirubin Negative (Negative); Urine Blood 1+ (Negative); Urine Color Yellow (Yellow); Urine Glucose Negative (Negative); Urine Protein Negative (Negative); Urine Urobilinogen >=8.0 mg/dL (0.2-1.0)
[2021-11-18 04:58] LABS: Urine Microscopic Reflex ORDER UMIC
[2021-11-18 05:26] LABS: Urine Bacteria <20 /HPF (NONE SEEN); Urine Urothelial Cells <5 /HPF (NONE SEEN)
--- NOTE | 2021-11-18 06:16 | P.PN ---
Date of Service: 11/18/21 Subjective: difficult to arouse this morning, opens eyes briefly to verbal stimuli ROS: 10 point ROS as noted above, otherwise negative Physical exam GEN: lethargic, opens eyes to verbal stimuli HEENT: Normal conjunctiva, sclera anicteric CV: Regular rate and rhythm, no murmur Pulm: Nonlabored respirations on room air ABD: Soft, nontender, nondistended Integumentary: Tenderness, warmth, erythema right lower extremity Neuro: Moves extremities, lethargic Problem List Right lower extremity cellulitis, without severe sepsis/shock Acute metabolic encephalopathy secondary to infection Subacute DVT right lower extremity on anticoagulation History atrial flutter Dementia Hypertension Continue broad-spectrum antibiotics, vancomycin and cefepime Multiple small us superficial appearing ulcerations on his lower leg/foot Repeat ultrasound negative for DVT, which was diagnosed 1 week ago Continue Eliquis No appreciable abscess/fluid collection on exam Blood culture growing gram-positive cocci ID consulted Patient without leukocytosis, afebrile, however seems to have acute encephalopathy beyond his baseline VTE: Eliquis Code: Full Dispo: prison, ~2 days Time Spent Managing Pts Care (In Minutes): 35
[2021-11-18 06:19] LABS: Absolute Lymphocytes (CBC) 1.2 K/uL (0.7-4.9); Hematocrit 28.9 % (39.6-49.0); Lymphocytes % 21.6 % (15.3-44.8); RBC Red Blood Cell Count 3.16 M/uL (4.33-5.43)
[2021-11-18 06:35] LABS: ALT/SGPT 16 U/L (12-78); AST/SGOT 21 U/L (15-37); Albumin 1.9 g/dL (3.4-5.0); Alkaline Phosphatase 112 U/L (45-117); BUN Blood Urea Nitrogen 10 mg/dL (7-18); Bicarbonate 29 mmol/L (21-32); Bilirubin Total 0.6 mg/dL (0.2-1.0); Glucose Level 84 mg/dL (74-106); Potassium 3.7 mmol/L (3.5-5.1); Protein, Total 5.5 g/dL (6.4-8.2); Sodium Level 140 mmol/L (136-145)
[2021-11-18] MEDS: APIXABAN 5 MG TABLET PO SCH ×2 (09:00→20:30)
[2021-11-18] MEDS ORDERED: POTASSIUM CL SA 10 MEQ TAB PO ONE (09:00)
[2021-11-18] MEDS: CEFEPIME 1 GM in NA CHLORIDE 0.9% 100 ML IV SCH (09:04)
--- NOTE | 2021-11-18 09:59 | RAD REPORT ---
EXAM DESCRIPTION: CT - Head Brain Wo Cont - 11/18/2021 9:43 am CLINICAL HISTORY: Lethargy COMPARISON: 2020 TECHNIQUE: Computed axial tomography of the head was obtained. IV contrast was not requested. All CT scans are performed using dose optimization technique as appropriate and may include automated exposure control or mA/KV adjustment according to patient size. FINDINGS: An intracranial bleed is not seen . The ventricles are normal in caliber. No extra-axial fluid collection is noted. 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 Fluid within the sinuses/ mastoids is not seen. IMPRESSION: No acute intracranial abnormality is seen. If patient's symptoms persist MRI of the bra in would be recommended.
[2021-11-18] MEDS: D5 0.45 NS 1,000 ML IV SCH (10:07)
[2021-11-18] MEDS ORDERED: VANCOMYCIN 1.75 GM in NA CHLORIDE 0.9% 500 ML IVPB SCH (11:00)
--- NOTE | 2021-11-18 13:24 | P.CNS ---
Date of Consult: 11/18/21 History of Present Illness: The patient is an 86-year-old male with a past medical history of dementia, atrial flutter, hypertension, and DVT of right lower extremity currently on anticoagulation therapy who presented to the emergency department from his care home secondary right lower extremity cellulitis. Patient very somnolent at bedside, per who is at bedside this has been patient's baseline for about a month. States that he started to have decline in function after sustaining a mechanical fall. In ED labs are unremarkable, venous Doppler showed resolution of right lower extremity DVT. Foot x-ray negative for any acute abnormalities. Patient empirically placed on vancomycin and Rocephin. Allergies NKDA Allergy (Uncoded 09/10/15 11:04) Unknown Home Medications: Apixaban [Eliquis] 5 mg PO BID 11/18/21 Ascorbic Acid [Vitamin C] 500 mg PO DAILY 11/18/21 Aspirin 81 mg PO DAILY 11/18/21 Codeine/APAP [Tylenol W/Codeine #3 tab] 1 tab PO Q6HP PRN 11/18/21 Collagenase [Santyl Ointment] 1 appl TP DAILY 11/18/21 Divalproex [Depakote Sprinkle] 250 mg PO BID 11/18/21 Lactulose [Enulose] 30 ml PO DAILYPRN PRN 11/18/21 Losartan Potassium [Cozaar] 50 mg PO DAILY 11/18/21 Multivitamin with Minerals [One Daily Plus Minerals] 1 each PO DAILY 11/18/21 Zinc Oxide 1 appl TP DAILY 11/18/21 Zinc Sulfate [Zinc Sulfate*] 220 mg PO DAILY 11/18/21 - Past Medical/Surgical History Diabetic: No -: Dementia -: PVD -: Lymphedema -: Osteoarthritis -: Incontinence -: DVT -: Atrial flutter -: Hypertension -: Bilateral cataract removal -: Left knee replacement -: Neck & back sx Psychosocial/ Personal History: Patient is a resident of [facility] - Social History Smoking Status: Unknown if ever smoked Alcohol use: No CD- Drugs: No Caffeine use: No Place of Residence: Home Review of Systems is unable to be obtained Physical Examination Temp Pulse Resp BP Pulse Ox 97.6 F 91 H 16 139/61 97 11/18/21 12:00 11/18/21 12:00 11/18/21 12:00 11/18/21 12:00 11/18/21 12:00 General: Oriented x1 HEENT: Atraumatic Neck: Supple Respiratory: Clear to auscultation bilaterally, Normal air movement Cardiovascular: No edema, Regular rate/rhythm Gastrointestinal: Normal bowel sounds, Non-distended Integumentary: Other (Several small wounds to bilateral lower extremities, right lower extremity swelling and erythema) Laboratory Data (last 24 hrs) 11/17/21 18:30: PT 16.0 H, INR 1.44, APTT 33.9 11/17/21 18:30: Sodium 137, Potassium 3.7, BUN 12, Creatinine 0.55, Glucose 103, Total Bilirubin 0.7, AST 26, ALT 20, Alkaline Phosphatase 150 H 11/17/21 18:30: WBC 6.9, Hgb 11.0 L D, Hct 33.2 L D, Plt Count 229 Conclusions/Impression: Antibiotics: Vancomycin: 11/17current Rocephin: Right lower extremity cellulitis Patient has multiple small wounds to left lower extremity. Wound care on board and treating. Wound culture from one of the wounds is pending unknown which wound culture was obtained from Venous Doppler negative for DVT, foot x-ray showed no acute abnormalities -Recommend continuing IV vancomycin at this time. Patient has MRSA risk factor because he is a care home resident. Bacteremia? Preliminary Gram stain from blood cultures obtained on 11/17 growing gram-positi ve cocci in clusters. Awaiting full report. Unlikely patient is bacteremic as he has no leukocytosis, no fever, or no other signs of sepsis/severe infection Plan of care discussed with Dr. Oneil Thank you for consultation
[2021-11-18] MEDS ORDERED: VANCOMYCIN 1 GM/VIAL ONE (20:02)
[2021-11-18] MEDS: VANCOMYCIN 1.75 GM in NA CHLORIDE 0.9% 500 ML IVPB SCH (20:29)
[2021-11-19 01:25] VITALS: BMI 29.3
[2021-11-19 06:15] LABS: Absolute Lymphocytes (CBC) 1.4 K/uL (0.7-4.9); Hematocrit 27.7 % (39.6-49.0); Lymphocytes % 24.8 % (15.3-44.8); MPV 7.1 fL (7.6-11.3); RBC Red Blood Cell Count 3.04 M/uL (4.33-5.43)
[2021-11-19] MEDS: D5 0.45 NS 1,000 ML IV SCH (06:16)
[2021-11-19 06:34] LABS: ALT/SGPT 16 U/L (12-78); AST/SGOT 14 U/L (15-37); Albumin 1.8 g/dL (3.4-5.0); Alkaline Phosphatase 107 U/L (45-117); BUN Blood Urea Nitrogen 9 mg/dL (7-18); Bicarbonate 29 mmol/L (21-32); Bilirubin Total 0.5 mg/dL (0.2-1.0); Glucose Level 90 mg/dL (74-106); Potassium 3.6 mmol/L (3.5-5.1); Protein, Total 5.6 g/dL (6.4-8.2); Sodium Level 137 mmol/L (136-145)
--- NOTE | 2021-11-19 06:42 | P.PN ---
Date of Service: 11/19/21 Subjective: more awake, slow to respond / aphasic reports feeling achy ROS: 10 point ROS as noted above, otherwise negative Physical exam GEN: lethargic, opens eyes to verbal stimuli, slow to respond HEENT: Normal conjunctiva, sclera anicteric CV: Regular rate and rhythm, no murmur Pulm: Non-labored respirations on room air ABD: Soft, nontender, nondistended Integumentary: Tenderness, warmth, erythema right lower extremity Neuro: Moves extremities, aphasic, follows some basic commands intermittently Problem List Right lower extremity cellulitis, without severe sepsis/shock Acute metabolic encephalopathy secondary to infection Subacute DVT right lower extremity on anticoagulation History atrial flutter Dementia Hypertension Continue broad-spectrum antibiotics, vancomycin and cefepime Multiple small superficial appearing ulcerations on his lower leg/foot Repeat ultrasound negative for DVT, which was diagnosed 1 week ago Continue Eliquis No appreciable abscess/fluid collection on exam Blood culture growing gram-positive cocci, CONS, repeat culture, echo ordered r/o vegetation ID consulted continue IV vanc Patient without leukocytosis, afebrile, however seems to have acute encephalopa thy beyond his baseline neuro consulted, MRI ordered VTE: Eliquis Code: Full Dispo: senior living, ~2-3 days Time Spent Managing Pts Care (In Minutes): 35
[2021-11-19] MEDS: MEDIHONEY 44 ML TOPICAL TUBE TOP SCH (08:20)
[2021-11-19] MEDS: APIXABAN 5 MG TABLET PO SCH ×2 (08:21→21:12)
[2021-11-19] MEDS ORDERED: POTASSIUM 25 MEQ EFFERV TAB PO ONE (09:00)
--- NOTE | 2021-11-19 13:32 | P.PN ---
Subjective Date of Service: 11/19/21 Patient seen and examined at bedside, more awake/alert today. Review of Systems 10-point ROS is otherwise unremarkable Physical Examination - Vital Signs Temperature: 98.7 F Blood Pressure: 148/65 Pulse: 88 Respirations: 14 Pulse Ox (%): 97 - Studies Laboratory Last Values WBC 6.9 K/uL (4.3-10.9) 11/17/21 18:30 RBC 3.66 M/uL (4.33-5.43) L D 11/17/21 18:30 Hgb 11.0 g/dL (13.6-17.9) L D 11/17/21 18:30 Hct 33.2 % (39.6-49.0) L D 11/17/21 18:30 MCV 90.5 fL (80-100) 11/17/21 18:30 MCH 30.0 pg (27.0-35.0) 11/17/21 18: MCHC 33.2 g/dL (32.0-36.0) 11/17/21 18:30 RDW 15.4 % (12.1-15.2) H 11/17/21 18:30 Plt Count 229 K/uL (152-406) 11/17/21 18:30 MPV 7.1 fL (7.6-11.3) L D 11/17/21 18:30 Neutrophils % 64.2 % (41.7-73.7) 11/17/21 18:30 Lymphocytes % 21.7 % (15.3-44.8) 11/17/21 18: Monocytes % 11.6 % (3.3-12.3) 11/17/21 18:30 Eosinophils % 1.7 % (0-4.4) 11/17/21 18: Basophils % 0.8 % (0-1.3) 11/17/21 18:30 Absolute Neutrophils 4.4 K/uL (1.8-8.0) 11/17/21 18: Absolute Lymphocytes 1.5 K/uL (0.7-4.9) 11/17/21 18:30 Absolute Monocytes 0.8 K/uL (0.1-1.3) 11/17/21 18: Absolute Eosinophils 0.1 K/uL (0-0.5) 11/17/21 18:30 Absolute Basophils 0.1 K/uL (0-0.5) 11/17/21 18:30 PT 16.0 SECONDS (9.5-12.5) H 11/17/21 18:30 INR 1.44 11/17/21 18:30 APTT 33.9 SECONDS (24.3-36.9) 11/17/21 18:30 Sodium 137 mmol/L (136-145) 11/17/21 18:30 Potassium 3.7 mmol/L (3.5-5.1) 11/17/21 18:30 Chloride 99 mmol/L (98-107) 11/17/21 18:30 Carbon Dioxide 31 mmol/L (21-32) 11/17/21 18:30 BUN 12 mg/dL (7-18) 11/17/21 18:30 Creatinine 0.55 mg/dL (0.55-1.3) 11/17/21 18:30 Estimated GFR > 90 mL/min (=/>90) 11/17/21 18:30 Glucose 103 mg/dL (74-106) 11/17/21 18:30 Lactic Acid 1.1 mmol/L (0.4-2.0) 11/17/21 18:30 Calcium 8.6 mg/dL (8.5-10.1) 11/17/21 18:30 Total Bilirubin 0.7 mg/dL (0.2-1.0) 11/17/21 18:30 AST 26 U/L (15-37) 11/17/21 18:30 ALT 20 U/L (12-78) 11/17/21 18:30 Alkaline Phosphatase 150 U/L (45-117) H 11/17/21 18:30 Serum Total Protein 7.2 g/dL (6.4-8.2) 11/17/21 18:30 Albumin 2.5 g/dL (3.4-5.0) L 11/17/21 18:30 Globulin 4.7 g/dL (2.3-3.5) H 11/17/21 18:30 Albumin/Globulin Ratio 0.5 (1.1-1.8) L 11/17/21 18:30 Microbiology Data (last 24 hrs): 11/17/21 18:45 Blood - Blood Blood Culture Gram Stain - Final Assessment And Plan - Plan Physical Exam: General: Oriented x1 HEENT: Atraumatic Neck: Supple Respiratory: Clear to auscultation bilaterally, Normal air movement Cardiovascular: No edema, Regular rate/rhythm Gastrointestinal: Normal bowel sounds, Non-distended Integumentary: Other (Several small wounds to bilateral lower extremities, right lower extremity swelling and erythema) Conclusions/Impression: Antibiotics: Vancomycin: 11/17current Rocephin: Right lower extremity cellulitis Patient has multiple small wounds to left lower extremity. Wound care on board and treating. Wound culture from one of the wounds preliminary results growing coagulase positive staph, unknown which wound culture was obtained from Venous Doppler negative for DVT, foot x-ray showed no acute abnormalities -Recommend continuing IV vancomycin at this time. Patient has MRSA risk factor because he is a [place] [facility] resident. Bacteremia -Blood cultures obtained on growing coagulase-negative staph. Repeat cultures obtained on 11/19 pending. Acute metabolic encephalopathy Likely related to infection. Mentation improving. Plan of care discussed with Dr. Oneil Thank you for consultation
--- NOTE | 2021-11-19 18:49 | RAD REPORT ---
EXAM DESCRIPTION: MRI - Brain Wo Cont - 11/19/2021 6:24 pm CLINICAL HISTORY: slow to answer, aphasic COMPARISON: HEAD BRAIN W O CONTRAST dated 09/08/2008rain Wo Cont dated 08/04/2021 TECHNIQUE: Sagittal T1-weighted images were obtained along with axial PD, heavily T2-weighted and T2 -FLAIR images. Axial DWI and ADC mapping sequences were also obtained along with coronal heavily T2-w eighted images. FINDINGS: No intracranial hemorrhage is present. There is no mass effect, edema or shift of midline structures. Diffusion-weighted imaging shows a 14 x 5 mm area of abnormal signal in the deep perivent ricular white matter right frontal lobe just superior to the basal ganglia. There is sufficient motio n degradation present that ADC mapping comparison is difficult. Patient has very extensive chronic is chemic change scattered throughout the cerebral white matter. Advanced atrophy changes are present wi th ventricles in proportion. Atrophy of the cerebellum is present. Khoury-matter/white matter junction is preserved. Signal voids are seen as a normal finding in the major intracranial vessels. No sella or supra sella abnormality. No globe or orbital content acute finding. Mastoid air cells and paranasal sinuses are clear of acute disease. IMPRESSION: Small acute/subacute nonhemorrhagic CVA in the deep periventricular white matter of the right frontal lobe. The suspected right frontal lobe CVA is not in a location that would generate aphasia and not likely cause a global altered mental status. Advanced atrophy and advanced chronic ischemic change not substantially different from 08/04/2021 richard dy.
--- NOTE | 2021-11-19 20:37 | CON ---
Reason For Consultation: Consultation called because of altered mental status. History Of Present Illness: Mr. Palumbo is an 86-year-old right-handed patient with atrial fl utter, hypertension, dementia, multiple strokes in the past who comes to [facility] and was admitted on 11/17/2021 with right foot cellulitis. The cellulitis had apparently gotten worse over t he last week on his admission, and as he came to [facility], he was treated with vancomycin and cefepime in the Emergency Room, and was admitted for further wound assessment and management, marvel ecially to rule out osteomyelitis. His procalcitonin and lactic acid were negative for sepsis. Cohen [place], the patient's state of communication was much less. He appeared disoriented, not following inst ructions, not able to express himself well. A head CT scan was done that showed no acute ischemic or hemorrhagic change. 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 However, a brain MRI that was done on August 04, 2021, identified a left frontal, subcortical chronic stroke at that time, in addition to a small right cerebellar infarct and cerebral atrophy, w hich was reported to be advanced for age. The location of the patient's stroke in the front is likel y a significant factor in his inability to communicate effectively, as it likely involves Broca's are a making it difficult for him to express himself and to fully follow instructions. When I was at the patient's bedside, eventually he was able to lift both hands when asked to do so, but could not yanira rly show a thumbs-up sign with either hand when asked to, but when mimicked and mimed by showing him directly, he eventually got towards using and moving the thumb, but it was not a full thumbs up. He was able to also move the left leg more than the right when asked to. Past Medical History: Dementia, lymphedema, peripheral vascular disease, osteoarthritis, incontinenc e, deep vein thrombus, atrial flutter, hypertension. Surgical History: Bilateral cataract surgery, left knee replacement, surgery in the neck and lower b ack. Social History: He resides at [facility]. Allergies: NO KNOWN DRUG ALLERGIES. Medications: At home, Lovenox 40 mg subcutaneously daily, tramadol 50 mg every 4 hours. Cozaar 50 m g daily. Family History: Noncontributory. Review of Systems: Cannot be reliably done as the patient is unable to follow any instructions to communicate effectivel y. Physical Examination: Vital Signs: Blood pressure 139 up to 148/63 to 66, pulse is 88, respiratory rate 14 to 18, temperat ure max 99.4, oxygen saturation 98% on room air. General: Mr. Palumbo is resting in bed. He is in no acute distress. HEENT: He appears normocephalic. Sclerae anicteric. Oropharynx shows poor dentition, but pink and moist. Neck: Supple. Chest: Good air movement. Abdomen: Soft. Extremities: On the right, he has a bandage on the lower extremity with cellulitis and also across th e big toe on the left. Neurological: He did alert to his name, difficult to follow commands. I have repeated instructions to get him to follow commands to move the arms and legs. Eventually he did, this comprehends communi cation. Cranial nerves show no obvious deficits. He has sums of strength cannot fully assess his st rength, but he appears to move the upper extremities equally well. Lower extremity, he moves the rig ht lower extremity less than the left. Sensory exam could not fully assess. Tone appears slightly i ncreased in all extremities. I could not assess his gait. Laboratory Studies: Complete blood count with differential shows normal white blood cell count, hemo globin 9.0, INR 1.44, creatinine 0.53. Liver function studies are unremarkable. Procalcitonin less than 0.05 and lactic acid 1.1. COVID-19 test is negative. Influenza A and B negative. Assessment: Mr. Palumbo is an 86-year-old patient with likely an [id number] reason for his enceph alopathy. 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 He has a left frontal subcortical stroke likely i mpacting his language expression in addition to some difficulty with comprehension. His comorbid inf ection likely is a contributing factor as well as he has little reserve to withstand a challenge such as infection, because of his baseline cognitive deficits. Plan: 1.Continue with IV antibiotics as appropriate. 2.DVT prophylaxis with Eliquis. 3.He would benefit from physical therapy to help reduce the risk of deep vein thrombus, and to help him with transfers and have his ability to do activities of daily living optimized. However, retirement would be more appropriate for acute inpatient rehabilitation, as he has significant difficul ty following simple commands. He may be discharged once his antibiotics are converted to oral therapy and his cellulitis is address ed appropriately. Also, consider Aricept or Namenda, although they may not necessarily be helpful, b ut a trial may provide some improvement in his cognitive functioning. BERNICE/DEVIN Voice ID: [id number] Report ID: [id number]
[2021-11-20] MEDS: VANCOMYCIN 1.75 GM in NA CHLORIDE 0.9% 500 ML IVPB SCH ×2 (00:11→15:08)
--- NOTE | 2021-11-20 06:05 | P.PN ---
Date of Service: 11/20/21 Subjective: stable, no changes, slow to answer ROS: 10 point ROS as noted above, otherwise negative Physical exam GEN: opens eyes to verbal stimuli, slow to respond HEENT: Normal conjunctiva, sclera anicteric CV: Regular rate and rhythm, no murmur Pulm: Non-labored respirations on room air ABD: Soft, nontender, nondistended Integumentary: Tenderness, warmth, erythema right lower extremity Neuro: Moves extremities, aphasic, follows some basic commands intermittently Problem List Right lower extremity cellulitis, without severe sepsis/shock Acute metabolic encephalopathy secondary to infection Subacute DVT right lower extremity on anticoagulation acute/subacute R frontal lobe CVA History atrial flutter h/o stroke, aphasia Dementia Hypertension Discontinue cefepime Wound culture growing MRSA Blood culture: Coagulase-negative staph ID consulted Continue vancomycin Repeat blood cultures Echocardiogram ordered to rule out vegetation Patient seemed to have more encephalopathy beyond his baseline, and did not appear septic CT head was negative, MRI revealed acute/subacute nonhemorrhagic CVA in the left frontal lobe neuro consulted Continue Eliquis, statin and folic acid PT consult VTE: Eliquis Code: Full Dispo: residential, ~2-3 days Time Spent Managing Pts Care (In Minutes): 35
[2021-11-20 06:10] LABS: Absolute Lymphocytes (CBC) 1.3 K/uL (0.7-4.9); Hematocrit 26.8 % (39.6-49.0); Lymphocytes % 25.6 % (15.3-44.8); MPV 7.3 fL (7.6-11.3); RBC Red Blood Cell Count 2.96 M/uL (4.33-5.43)
[2021-11-20 06:15] LABS: ALT/SGPT 16 U/L (12-78); AST/SGOT 15 U/L (15-37); Albumin 1.8 g/dL (3.4-5.0); Alkaline Phosphatase 96 U/L (45-117); BUN Blood Urea Nitrogen 6 mg/dL (7-18); Bicarbonate 29 mmol/L (21-32); Bilirubin Total 0.5 mg/dL (0.2-1.0); Glucose Level 93 mg/dL (74-106); Potassium 3.6 mmol/L (3.5-5.1); Protein, Total 5.5 g/dL (6.4-8.2); Sodium Level 139 mmol/L (136-145)
[2021-11-20] MEDS: D5 0.45 NS 1,000 ML IV SCH ×2 (06:42→22:00)
[2021-11-20] MEDS: DIVALPROEX NA 125 MG CAP PO SCH ×2 (08:34→22:08)
[2021-11-20] MEDS: APIXABAN 5 MG TABLET PO SCH ×2 (08:34→22:08)
[2021-11-20] MEDS: MEDIHONEY 44 ML TOPICAL TUBE TOP SCH (08:35)
[2021-11-20] MEDS ORDERED: POTASSIUM CL SA 10 MEQ TAB PO ONE (09:00)
[2021-11-21 06:11] LABS: Hematocrit 27.2 % (39.6-49.0); RBC Red Blood Cell Count 3.04 M/uL (4.33-5.43)
[2021-11-21 06:24] LABS: BUN Blood Urea Nitrogen 6 mg/dL (7-18); Bicarbonate 29 mmol/L (21-32); Glucose Level 93 mg/dL (74-106); Potassium 3.8 mmol/L (3.5-5.1); Sodium Level 138 mmol/L (136-145)
--- NOTE | 2021-11-21 06:52 | P.PN ---
Date of Service: 11/21/21 Subjective: ROS: 10 point ROS as noted above, otherwise negative Physical exam GEN: opens eyes to verbal stimuli, slow to respond HEENT: Normal conjunctiva, sclera anicteric CV: Regular rate and rhythm, no murmur Pulm: Non-labored respirations on room air ABD: Soft, nontender, nondistended Integumentary: Tenderness, warmth, erythema right lower extremity Neuro: Moves extremities, aphasic, follows some basic commands intermittently Problem List Right lower extremity cellulitis, without severe sepsis/shock Acute metabolic encephalopathy secondary to infection Subacute DVT right lower extremity on anticoagulation acute/subacute R frontal lobe CVA History atrial flutter h/o stroke, aphasia Dementia Hypertension Discontinue cefepime Wound culture growing MRSA Blood culture: Coagulase-negative staph ID consulted Continue vancomycin Repeat blood cultures Echocardiogram ordered to rule out vegetation Patient seemed to have more encephalopathy beyond his baseline, and did not appear septic CT head was negative, MRI revealed acute/subacute nonhemorrhagic CVA in the left frontal lobe neuro consulted Continue Eliquis, statin and folic acid PT consult VTE: Eliquis Code: Full Dispo: long term, ~2-3 days Time Spent Managing Pts Care (In Minutes): 35
[2021-11-21] MEDS: APIXABAN 5 MG TABLET PO SCH ×2 (08:57→23:14)
[2021-11-21] MEDS: DIVALPROEX NA 125 MG CAP PO SCH ×2 (08:57→23:14)
[2021-11-21] MEDS: MEDIHONEY 44 ML TOPICAL TUBE TOP SCH (08:58)
[2021-11-21] MEDS: VANCOMYCIN 1.75 GM in NA CHLORIDE 0.9% 500 ML IVPB SCH (08:58)
[2021-11-21] MEDS ORDERED: VANCOMYCIN 2 GM in NA CHLORIDE 0.9% 500 ML IVPB SCH (09:00)
[2021-11-21] MEDS ORDERED: POTASSIUM 25 MEQ EFFERV TAB PO ONE (09:00)
--- NOTE | 2021-11-21 11:45 | P.PN ---
Subjective Date of Service: 11/21/21 Chief Complaint: Cellulitis of the right lower extremity Condition stable she has underlying dementia Review of Systems is unable to be obtained Physical Examination - Vital Signs Temperature: 98.4 F Blood Pressure: 130/57 Pulse: 64 Respirations: 16 Pulse Ox (%): 97 - Physical Exam General: Alert Respiratory: Clear to auscultation bilaterally Cardiovascular: No edema, Regular rate/rhythm - Studies Microbiology Data (last 24 hrs): 11/17/21 18:30 Blood - Blood Aerobic Blood Culture - Final Staph Epidermidis 11/17/21 18:30 Blood - Blood Gram Stain - Final 11/17/21 18:45 Blood - Blood Aerobic Blood Culture - Final Staph Epidermidis 11/17/21 18:45 Blood - Blood Blood Culture Gram Stain - Final Assessment And Plan - Current Problems (Diagnosis) (1) Cellulitis Current Visit: Yes Status: Acute Qualifiers: Site of cellulitis of extremity: lower extremity Laterality: right - Plan Patient is 86 years of age admitted with right lower extremity cellulitis seen by infectious disease labs reviewed mildly anemic white count is normal patient has staph epidermidis isolated in the blood and MRSA from the wound he on vancomycin
[2021-11-21] MEDS: D5 0.45 NS 1,000 ML IV SCH (19:17)
[2021-11-22] MEDS ORDERED: VANCOMYCIN 2 GM in NA CHLORIDE 0.9% 500 ML IVPB SCH (03:00)
[2021-11-22 05:54] LABS: BUN Blood Urea Nitrogen 9 mg/dL (7-18); Bicarbonate 29 mmol/L (21-32); Glucose Level 94 mg/dL (74-106); Potassium 3.9 mmol/L (3.5-5.1); Sodium Level 136 mmol/L (136-145)
--- NOTE | 2021-11-22 07:22 | ECHO ---
HEIGHT: 6 ft 0 in WEIGHT: 216 lb 6.4 oz DATE OF STUDY: 11/19/[address]: Александр Cleaning MD 2-DIMENSIONAL: YES M.MODE: YES DOPPLER: YES COLOR FLOW: YES TDS: NO PORTABLE: NO DEFINITY: NO BUBBLE STUDY: NO DIAGNOSIS: RULE OUT VEGETATION CARDIAC HISTORY: CATHERIZATION: SURGERY: PROSTHETIC VALVE: PACEMAKER: MEASUREMENTS (cm) DIASTOLIC (NORMALS) SYSTOLIC (NORMALS) IVSd 1.1 (0.6-1.2) LA Diam 5.1 (1.9-4.0) LVEF 57% LVIDd 5.2 (3.5-5.7) LVIDs 3.6 (2.0-3.5) %FS 30% LVPWd 1.3 (0.6-1.2) Ao Diam 3.3 (2.0-3.7) 2 DIMENSIONAL ASSESSMENT: RIGHT ATRIUM: NORMAL LEFT ATRIUM: ENLARGED RIGHT VENTRICLE: NORMAL LEFT VENTRICLE: NORMAL TRICUSPID VALVE: MITRAL VALVE: MITRAL ANNULAR CALCIFICATION PULMONIC VALVE: NORMAL AORTIC VALVE: THICKENED PERICARDIAL EFFUSION: NONE AORTIC ROOT: NORMAL LEFT VENTRICULAR WALL MOTION: NORMAL DOPPLER/COLOR FLOW: SEE BELOW COMMENTS: NORMAL LEFT VENTRICULAR EJECTION FRACTION 55-60%. NORMAL WALL MOTION. NO CLEAR VEGETATION IS SEEN RECOMMEND LIDA IF CLINICALLY IS INDICATED. MILD MITRAL AND TRICUSPID REGURGITATION. LEFT ATRIAL ENLARGEMENT. TECHNOLOGIST: Gladis VILCHIS
[2021-11-22] MEDS: DIVALPROEX NA 125 MG CAP PO SCH ×2 (08:38→22:20)
[2021-11-22] MEDS: APIXABAN 5 MG TABLET PO SCH ×2 (08:38→22:20)
[2021-11-22] MEDS: MEDIHONEY 44 ML TOPICAL TUBE TOP SCH (08:39)
[2021-11-22] MEDS ORDERED: POTASSIUM 25 MEQ EFFERV TAB PO ONE (09:00)
--- NOTE | 2021-11-22 11:28 | EKG ---
Test Date: 2021-11-17 Test Time: 18:43:14 Artist Suspect: BRITTANY MEASUREMENT RESULTS: Intervals: Rate: 102 [place]: QRSD: 90 QT: 348 QTc: 453 [place]: P: KS: QRS: 12 T: 26 INTERPRETIVE STATEMENTS: Atrial fibrillation with rapid ventricular response with premature ventricular or aberrantly conducted complexes Abnormal ECG Compared to ECG 08/03/2021 12:54:25 Ventricular premature complex(es) now present Atrial flutter no longer present Incomplete right bundle-branch block no longer present Myocardial infarct finding no longer present Electronically Signed On 11-22-21 11:14:38 CDT by Chris Romano
[2021-11-22] MEDS: D5 0.45 NS 1,000 ML IV SCH ×2 (14:00→22:49)
--- NOTE | 2021-11-22 15:07 | P.PN ---
Subjective Date of Service: 11/22/21 Chief Complaint: Cellulitis of the right lower extremity Patient seen and examined at bedside, resting comfortably afebrile with no leukocytosis. Review of Systems 10-point ROS is otherwise unremarkable Physical Examination - Vital Signs Temperature: 97.3 F Blood Pressure: 137/62 Pulse: 76 Respirations: 16 Pulse Ox (%): 95 - Studies Laboratory Last Values WBC 6.9 K/uL (4.3-10.9) 11/17/21 18:30 RBC 3.66 M/uL (4.33-5.43) L D 11/17/21 18:30 Hgb 11.0 g/dL (13.6-17.9) L D 11/17/21 18:30 Hct 33.2 % (39.6-49.0) L D 11/17/21 18:30 MCV 90.5 fL (80-100) 11/17/21 18:30 MCH 30.0 pg (27.0-35.0) 11/17/21 18: MCHC 33.2 g/dL (32.0-36.0) 11/17/21 18:30 RDW 15.4 % (12.1-15.2) H 11/17/21 18:30 Plt Count 229 K/uL (152-406) 11/17/21 18:30 MPV 7.1 fL (7.6-11.3) L D 11/17/21 18:30 Neutrophils % 64.2 % (41.7-73.7) 11/17/21 18:30 Lymphocytes % 21.7 % (15.3-44.8) 11/17/21 18:30 Monocytes % 11.6 % (3.3-12.3) 11/17/21 18:30 Eosinophils % 1.7 % (0-4.4) 11/17/21 18: Basophils % 0.8 % (0-1.3) 11/17/21 18:30 Absolute Neutrophils 4.4 K/uL (1.8-8.0) 11/17/21 18:30 Absolute Lymphocytes 1.5 K/uL (0.7-4.9) 11/17/21 18:30 Absolute Monocytes 0.8 K/uL (0.1-1.3) 11/17/21 18:30 Absolute Eosinophils 0.1 K/uL (0-0.5) 11/17/21 18:30 Absolute Basophils 0.1 K/uL (0-0.5) 11/17/21 18:30 PT 16.0 SECONDS (9.5-12.5) H 11/17/21 18:30 INR 1.44 11/17/21 18:30 APTT 33.9 SECONDS (24.3-36.9) 11/17/21 18:30 Sodium 137 mmol/L (136-145) 11/17/21 18:30 Potassium 3.7 mmol/L (3.5-5.1) 11/17/21 18:30 Chloride 99 mmol/L (98-107) 11/17/21 18: Carbon Dioxide 31 mmol/L (21-32) 11/17/21 18:30 BUN 12 mg/dL (7-18) 11/17/21 18:30 Creatinine 0.55 mg/dL (0.55-1.3) 11/17/21 18: Estimated GFR > 90 mL/min (=/>90) 11/17/21 18:30 Glucose 103 mg/dL (74-106) 11/17/21 18:30 Lactic Acid 1.1 mmol/L (0.4-2.0) 11/17/21 18:30 Calcium 8.6 mg/dL (8.5-10.1) 11/17/21 18:30 Total Bilirubin 0.7 mg/dL (0.2-1.0) 11/17/21 18: AST 26 U/L (15-37) 11/17/21 18:30 ALT 20 U/L (12-78) 11/17/21 18:30 Alkaline Phosphatase 150 U/L (45-117) H 11/17/21 18:30 Serum Total Protein 7.2 g/dL (6.4-8.2) 11/17/21 18:30 Albumin 2.5 g/dL (3.4-5.0) L 11/17/21 18:30 Globulin 4.7 g/dL (2.3-3.5) H 11/17/21 18:30 Albumin/Globulin Ratio 0.5 (1.1-1.8) L 11/17/21 18:30 Microbiology Data (last 24 hrs): 11/17/21 18:30 Blood - Blood Aerobic Blood Culture - Final Staph Epidermidis 11/17/21 18:30 Blood - Blood Anaerobic Blood Culture - Final Staph Epidermidis 11/17/21 18:30 Blood - Blood Gram Stain - Final 11/17/21 18:45 Blood - Blood Aerobic Blood Culture - Final Staph Epidermidis 11/17/21 18:45 Blood - Blood Blood Culture Gram Stain - Final Assessment And Plan - Plan Physical Exam: General: Oriented x1 HEENT: Atraumatic Neck: Supple Respiratory: Clear to auscultation bilaterally, Normal air movement Cardiovascular: No edema, Regular rate/rhythm Gastrointestinal: Normal bowel sounds, Non-distended Integumentary: Other (Several small wounds to bilateral lower extremities, right lower extremity swelling and erythema) Conclusions/Impression: Antibiotics: Bactrim: urrent Vancomycin: 11/17- Rocephin: Right lower extremity cellulitis Patient has multiple small wounds to left lower extremity. Wound care on board and treating. Wound culture from one of the wounds grew methicillin resistant Staphylococcus aureus, unknown which wound culture was obtained from Venous Doppler negative for DVT, foot x-ray showed no acute abnormalities -Recommend continuing with oral Bactrim Bacteremia -Blood cultures obtained on 11/17 grew staph epi and 3/ bottles. Repeat blood cultures obtained on 11/19 showed no growth. Low clinical suspicion for true b acteremia as patient never had septic presentation, has been afebrile with no leukocytosis throughout the duration of hospitalization. Procalcitonin negative. Recommend sending patient home on oral Bactrim. Acute metabolic encephalopathy Likely related to infection. Mentation improving. Plan of care discussed with Dr. Oneil Thank you for consultation
--- NOTE | 2021-11-22 16:55 | P.PN ---
Subjective Date of Service: 11/22/21 Chief Complaint: Cellulitis of the right lower extremity Patient is very slow to respond and not able to give subjective complaint. Physical Examination - Vital Signs Temperature: 97.3 F Blood Pressure: 177/77 Pulse: 80 Respirations: 18 Pulse Ox (%): 94 - Studies Microbiology Data (last 24 hrs): 11/17/21 18:30 Blood - Blood Aerobic Blood Culture - Final Staph Epidermidis 11/17/21 18:30 Blood - Blood Anaerobic Blood Culture - Final Staph Epidermidis 11/17/21 18:30 Blood - Blood Gram Stain - Final 11/17/21 18:45 Blood - Blood Aerobic Blood Culture - Final Staph Epidermidis 11/17/21 18:45 Blood - Blood Blood Culture Gram Stain - Final Assessment And Plan - Plan Physical exam GEN: Drowsy but easily arousable and slow to respond HEENT: Normal conjunctiva, sclera anicteric CV: Regular rate and rhythm, no murmur Pulm: Clear to auscultation bilaterally, adequate breath sounds bilaterally. ABD: Soft, nontender, nondistended Integumentary: Tenderness, warmth, erythema right lower extremity Neuro: Moves extremities, aphasic, obey basic commands intermittently Problem List Right lower extremity cellulitis, without severe sepsis/shock Acute metabolic encephalopathy secondary to infection Subacute DVT right lower extremity on anticoagulation acute/subacute R frontal lobe CVA History atrial flutter h/o stroke, aphasia Dementia Hypertension Plan Wound culture growing MRSA Blood culture: Staph epidermidis in 3 bottles. Repeat blood cultures negative. Staph epidermidis likely a skin contaminant. ID is following. Continue vancomycin We will switch to oral Bactrim on discharge. Echocardiogram: Negative for vegetation or clot. CT head was negative, MRI revealed acute/subacute nonhemorrhagic CVA in the left frontal lobe. Neurology input appreciated. Stroke appears to be in the [facility] ( [facility]) area per Dr. Mendoza. Patient is likely aphasic. Continue Eliquis, statin and folic acid Continue PT. VTE: Eliquis Code: Full Dispo: [facility].
[2021-11-22] MEDS: SMZ./TMP. 800/160 MG TABLET PO SCH (22:20)
[2021-11-23 06:28] LABS: BUN Blood Urea Nitrogen 7 mg/dL (7-18); Bicarbonate 29 mmol/L (21-32); Glucose Level 94 mg/dL (74-106); Potassium 3.9 mmol/L (3.5-5.1); Sodium Level 135 mmol/L (136-145)
[2021-11-23] MEDS ORDERED: POTASSIUM 25 MEQ EFFERV TAB PO ONE (09:00)
[2021-11-23] MEDS: APIXABAN 5 MG TABLET PO SCH ×2 (09:27→22:36)
[2021-11-23] MEDS: SMZ./TMP. 800/160 MG TABLET PO SCH ×2 (09:27→22:35)
[2021-11-23] MEDS: DIVALPROEX NA 125 MG CAP PO SCH ×2 (09:27→22:36)
[2021-11-23] MEDS: D5 0.45 NS 1,000 ML IV SCH (10:00)
--- NOTE | 2021-11-23 11:22 | P.PN ---
Subjective Date of Service: 11/23/21 Chief Complaint: Cellulitis of the right lower extremity Patient seen and examined at bedside, states he is feeling well. Review of Systems 10-point ROS is otherwise unremarkable Physical Examination - Vital Signs Temperature: 97.3 F Blood Pressure: 142/72 Pulse: 85 Respirations: 20 Pulse Ox (%): 96 - Studies Laboratory Last Values WBC 6.9 K/uL (4.3-10.9) 11/17/21 18:30 RBC 3.66 M/uL (4.33-5.43) L D 11/17/21 18:30 Hgb 11.0 g/dL (13.6-17.9) L D 11/17/21 18:30 Hct 33.2 % (39.6-49.0) L D 11/17/21 18:30 MCV 90.5 fL (80-100) 11/17/21 18:30 MCH 30.0 pg (27.0-35.0) 11/17/21 18: MCHC 33.2 g/dL (32.0-36.0) 11/17/21 18:30 RDW 15.4 % (12.1-15.2) H 11/17/21 18:30 Plt Count 229 K/uL (152-406) 11/17/21 18:30 MPV 7.1 fL (7.6-11.3) L D 11/17/21 18:30 Neutrophils % 64.2 % (41.7-73.7) 11/17/21 18:30 Lymphocytes % 21.7 % (15.3-44.8) 11/17/21 18: Monocytes % 11.6 % (3.3-12.3) 11/17/21 18:30 Eosinophils % 1.7 % (0-4.4) 11/17/21 18: Basophils % 0.8 % (0-1.3) 11/17/21 18:30 Absolute Neutrophils 4.4 K/uL (1.8-8.0) 11/17/21 18:30 Absolute Lymphocytes 1.5 K/uL (0.7-4.9) 11/17/21 18:30 Absolute Monocytes 0.8 K/uL (0.1-1.3) 11/17/21 18: Absolute Eosinophils 0.1 K/uL (0-0.5) 11/17/21 18:30 Absolute Basophils 0.1 K/uL (0-0.5) 11/17/21 18:30 PT 16.0 SECONDS (9.5-12.5) H 11/17/21 18:30 INR 1.44 11/17/21 18:30 APTT 33.9 SECONDS (24.3-36.9) 11/17/21 18:30 Sodium 137 mmol/L (136-145) 11/17/21 18:30 Potassium 3.7 mmol/L (3.5-5.1) 11/17/21 18:30 Chloride 99 mmol/L (98-107) 11/17/21 18:30 Carbon Dioxide 31 mmol/L (21-32) 11/17/21 18:30 BUN 12 mg/dL (7-18) 11/17/21 18:30 Creatinine 0.55 mg/dL (0.55-1.3) 11/17/21 18:30 Estimated GFR > 90 mL/min (=/>90) 11/17/21 18:30 Glucose 103 mg/dL (74-106) 11/17/21 18:30 Lactic Acid 1.1 mmol/L (0.4-2.0) 11/17/21 18:30 Calcium 8.6 mg/dL (8.5-10.1) 11/17/21 18:30 Total Bilirubin 0.7 mg/dL (0.2-1.0) 11/17/21 18:30 AST 26 U/L (15-37) 11/17/21 18:30 ALT 20 U/L (12-78) 11/17/21 18:30 Alkaline Phosphatase 150 U/L (45-117) H 11/17/21 18:30 Serum Total Protein 7.2 g/dL (6.4-8.2) 11/17/21 18:30 Albumin 2.5 g/dL (3.4-5.0) L 11/17/21 18:30 Globulin 4.7 g/dL (2.3-3.5) H 11/17/21 18:30 Albumin/Globulin Ratio 0.5 (1.1-1.8) L 11/17/21 18:30 Microbiology Data (last 24 hrs): 11/17/21 18:45 Blood - Blood Aerobic Blood Culture - Final Staph Epidermidis 11/17/21 18:45 Blood - Blood Blood Culture Gram Stain - Final 11/17/21 18:45 Blood - Blood Anaerobic Blood Culture - Final No growth in 5 days. 11/17/21 18:30 Blood - Blood Aerobic Blood Culture - Final Staph Epidermidis 11/17/21 18:30 Blood - Blood Anaerobic Blood Culture - Final Staph Epidermidis 11/17/21 18:30 Blood - Blood Gram Stain - Final Assessment And Plan - Plan Physical Exam: General: Oriented x1 HEENT: Atraumatic Neck: Supple Respiratory: Clear to auscultation bilaterally, Normal air movement Cardiovascular: No edema, Regular rate/rhythm Gastrointestinal: Normal bowel sounds, Non-distended Integumentary: Other (Several small wounds to bilateral lower extremities, right lower extremity swelling and erythema) Conclusions/Impression: Antibiotics: Bactrim: urrent Vancomycin: 11/17- Rocephin: Right lower extremity cellulitis Patient has multiple small wounds to left lower extremity. Wound care on board and treating. Wound culture from one of the wounds grew methicillin resistant Staphylococcus aureus, unknown which wound culture was obtained from Venous Doppler negative for DVT, foot x-ray showed no acute abnormalities -Recommend continuing with oral Bactrim Bacteremia -Blood cultures obtained on 11/17 grew staph epi and 3/ bottles. Repeat blood cultures obtained on 11/19 showed no growth. Low clinical suspicion for true bacteremia as patient never had septic presentation, has been afebrile with no leukocytosis throughout the duration of hospitalization. Procalcitonin negative. Recommend sending patient home on oral Bactrim. Acute metabolic encephalopathy Likely related to infection. Mentation improving. Plan of care discussed with Dr. Oneil Thank you for consultation
--- NOTE | 2021-11-23 19:13 | P.PN ---
Subjective Date of Service: 11/23/21 Chief Complaint: Cellulitis of the right lower extremity Patients very slow to respond and not able to give subjective complaint. No issues overnight. Physical Examination - Vital Signs Temperature: 97.8 F Blood Pressure: 139/73 Pulse: 81 Respirations: 18 Pulse Ox (%): 97 - Studies Microbiology Data (last 24 hrs): 11/17/21 18:45 Blood - Blood Aerobic Blood Culture - Final Staph Epidermidis 11/17/21 18:45 Blood - Blood Blood Culture Gram Stain - Final 11/17/21 18:45 Blood - Blood Anaerobic Blood Culture - Final No growth in 5 days. Assessment And Plan - Plan Physical exam GEN: Awake, aphasic. HEENT: Normal conjunctiva, sclera anicteric CV: Regular rate and rhythm, no murmur Pulm: Clear to auscultation bilaterally, adequate breath sounds bilaterally. ABD: Soft, nontender, nondistended Integumentary: erythema right lower extremity Neuro: Moves extremities, aphasic, respond with 1 or 2 words occasionally. Problem List Right lower extremity cellulitis, without severe sepsis/shock Acute metabolic encephalopathy secondary to infection Subacute DVT right lower extremity on anticoagulation acute/subacute R frontal lobe CVA History atrial flutter h/o stroke, aphasia Dementia Hypertension COVID-19 Plan Wound culture: MRSA Blood culture: Staph epidermidis in 3 bottles. Repeat blood cultures negative. Staph epidermidis likely a skin contaminant. ID is following. Switched vancomycin to oral Bactrim. Echocardiogram: Negative for vegetation or clot. CT head was negative, MRI revealed acute/subacute nonhemorrhagic CVA in the left frontal lobe. Neurology input appreciated. Stroke appears to be in the [facility] ( [facility]) area per Dr. Mendoza. Patient is likely aphasic. Continue Eliquis, statin and folic acid Continue PT. Asymptomatic from COVID-19 VTE: Eliquis Code: Full Dispo: Awaiting residential placement.
[2021-11-24 06:24] LABS: Absolute Lymphocytes (CBC) 1.8 K/uL (0.7-4.9); Hematocrit 33.2 % (39.6-49.0); Lymphocytes % 17.7 % (15.3-44.8); MPV 7.5 fL (7.6-11.3); RBC Red Blood Cell Count 3.68 M/uL (4.33-5.43)
[2021-11-24 06:28] LABS: BUN Blood Urea Nitrogen 8 mg/dL (7-18); Bicarbonate 27 mmol/L (21-32); Glucose Level 100 mg/dL (74-106); Potassium 4.3 mmol/L (3.5-5.1); Sodium Level 133 mmol/L (136-145)
[2021-11-24] MEDS: D5 0.45 NS 1,000 ML IV SCH (06:32)
[2021-11-24] MEDS: DIVALPROEX NA 125 MG CAP PO SCH ×2 (09:28→20:57)
[2021-11-24] MEDS: APIXABAN 5 MG TABLET PO SCH ×2 (09:29→20:58)
[2021-11-24] MEDS: SMZ./TMP. 800/160 MG TABLET PO SCH ×2 (09:29→20:58)
--- NOTE | 2021-11-24 11:25 | P.PN ---
Subjective Date of Service: 11/24/21 Chief Complaint: Cellulitis of the right lower extremity Patient seen and examined at bedside, resting comfortably at bedside, cellulitis improving. Review of Systems 10-point ROS is otherwise unremarkable Physical Examination - Vital Signs Temperature: 98.3 F Blood Pressure: 133/61 Pulse: 92 Respirations: 18 Pulse Ox (%): 93 - Studies Laboratory Last Values WBC 6.9 K/uL (4.3-10.9) 11/17/21 18:30 RBC 3.66 M/uL (4.33-5.43) L D 11/17/21 18:30 Hgb 11.0 g/dL (13.6-17.9) L D 11/17/21 18:30 Hct 33.2 % (39.6-49.0) L D 11/17/21 18:30 MCV 90.5 fL (80-100) 11/17/21 18:30 MCH 30.0 pg (27.0-35.0) 11/17/21 18: MCHC 33.2 g/dL (32.0-36.0) 11/17/21 18:30 RDW 15.4 % (12.1-15.2) H 11/17/21 18:30 Plt Count 229 K/uL (152-406) 11/17/21 18:30 MPV 7.1 fL (7.6-11.3) L D 11/17/21 18:30 Neutrophils % 64.2 % (41.7-73.7) 11/17/21 18:30 Lymphocytes % 21.7 % (15.3-44.8) 11/17/21 18: Monocytes % 11.6 % (3.3-12.3) 11/17/21 18:30 Eosinophils % 1.7 % (0-4.4) 11/17/21 18: Basophils % 0.8 % (0-1.3) 11/17/21 18:30 Absolute Neutrophils 4.4 K/uL (1.8-8.0) 11/17/21 18:30 Absolute Lymphocytes 1.5 K/uL (0.7-4.9) 11/17/21 18:30 Absolute Monocytes 0.8 K/uL (0.1-1.3) 11/17/21 18:30 Absolute Eosinophils 0.1 K/uL (0-0.5) 11/17/21 18:30 Absolute Basophils 0.1 K/uL (0-0.5) 11/17/21 18:30 PT 16.0 SECONDS (9.5-12.5) H 11/17/21 18:30 INR 1.44 11/17/21 18:30 APTT 33.9 SECONDS (24.3-36.9) 11/17/21 18:30 Sodium 137 mmol/L (136-145) 11/17/21 18:30 Potassium 3.7 mmol/L (3.5-5.1) 11/17/21 18:30 Chloride 99 mmol/L (98-107) 11/17/21 18:30 Carbon Dioxide 31 mmol/L (21-32) 11/17/21 18:30 BUN 12 mg/dL (7-18) 11/17/21 18:30 Creatinine 0.55 mg/dL (0.55-1.3) 11/17/21 18:30 Estimated GFR > 90 mL/min (=/>90) 11/17/21 18:30 Glucose 103 mg/dL (74-106) 11/17/21 18:30 Lactic Acid 1.1 mmol/L (0.4-2.0) 11/17/21 18:30 Calcium 8.6 mg/dL (8.5-10.1) 11/17/21 18:30 Total Bilirubin 0.7 mg/dL (0.2-1.0) 11/17/21 18:30 AST 26 U/L (15-37) 11/17/21 18:30 ALT 20 U/L (12-78) 11/17/21 18:30 Alkaline Phosphatase 150 U/L (45-117) H 11/17/21 18:30 Serum Total Protein 7.2 g/dL (6.4-8.2) 11/17/21 18:30 Albumin 2.5 g/dL (3.4-5.0) L 11/17/21 18:30 Globulin 4.7 g/dL (2.3-3.5) H 11/17/21 18:30 Albumin/Globulin Ratio 0.5 (1.1-1.8) L 11/17/21 18:30 Assessment And Plan - Plan Physical Exam: General: Oriented x1 HEENT: Atraumatic Neck: Supple Respiratory: Clear to auscultation bilaterally, Normal air movement Cardiovascular: No edema, Regular rate/rhythm Gastrointestinal: Normal bowel sounds, Non-distended Integumentary: Other (Several small wounds to bilateral lower extremities, right lower extremity swelling and erythema) Conclusions/Impression: Antibiotics: Bactrim: urrent Vancomycin: 11/17- Rocephin: Right lower extremity cellulitis Patient has multiple small wounds to left lower extremity. Wound care on board and treating. Wound culture from one of the wounds grew methicillin resistant Staphylococcus aureus, unknown which wound culture was obtained from Venous Doppler negative for DVT, foot x-ray showed no acute abnormalities -Recommend continuing with oral Bactrim Bacteremia -Blood cultures obtained on 11/17 grew staph epi and 3/ bottles. Repeat blood cultures obtained on 11/19 showed no growth. Low clinical suspicion for true bacteremia as patient never had septic presentation, has been afebrile with no leukocytosis throughout the duration of hospitalization. Procalcitonin negative. Recommend sending patient home on oral Bactrim. Acute metabolic encephalopathy Likely related to infection. Mentation improving. Plan of care discussed with Dr. Oneil Thank you for consultation
[2021-11-24 11:54] LABS: Platelet Estimate ADEQ; White Blood Cell Scan OK (OK)
[2021-11-24 11:55] LABS: Anisocytosis SLIGHT; Blood Morphology Comment NOTED (NOT SEEN); Hypochromasia 1+; Polychromasia SLIGHT
--- NOTE | 2021-11-24 13:56 | P.DS ---
Admission Date: 11/17/21 Discharge Date: 11/24/21 Disposition: TRANSFER TO ALF Discharge Condition: FAIR Reason for Admission: Cellulitis of the right lower extremity Brief History of Present Illness: 86-year-old male with history of dementia, atrial flutter, hypertension currently being treated for DVT of the right lower extremity presented to the emergency department for cellulitis of the right lower extremity. Patient has had some redness/swelling over the course of one week which had gotten significantly worse. He was recently started on Eliquis. Patient was evaluated in the emergency department, his labs were unremarkable. Patient was given vancomycin/cefepime and admitted for further management. Hospital Course: Patient admitted to the medical floor and started on IV antibiotics. Patient noted to be confused. MRI of the brain was obtained which demonstrated subacute infarct in the frontal lobe.he was seen by neurology. Stroke appears to be in the [facility] ( [facility]) area per Dr. Mendoza which is affecting his speech. Patient is currently aphasic. Wound culture: MRSA Blood culture: Staph epidermidis in 3 bottles. Repeat blood cultures negative. Staph epidermidis likely a skin contaminant. Seen by ID. Patient was initially on vancomycin which was switched to oral Bactrim. Echocardiogram: Negative for vegetation or clot. Continued Eliquis, and he was placed on statin and folic acid Received PT He tested positive for COVID-19 but was asymptomatic. Patient has clinically improved, he is tolerating diet, has residual aphasia. Patient deemed stable for discharge. Vital Signs/Physical Exam: Temp Pulse Resp BP Pulse Ox 98.5 F 85 18 122/64 94 11/24/21 12:00 11/24/21 12:00 11/24/21 12:00 11/24/21 12:00 11/24/21 12:00 General: In no apparent distress, Other (Awake) HEENT: Mucous membr. moist/pink Neck: JVD not distended Respiratory: Clear to auscultation bilaterally, Normal air movement Cardiovascular: No edema, Regular rate/rhythm, Normal S1 S2 Gastrointestinal: Soft and benign Musculoskeletal: No swelling Neurological: Normal strength at 5/5 x4 extr, Other (Aphasic) Laboratory Data at Discharge: WBC 10.1 K/uL (4.3-10.9) D 11/24/21 05:55 Hgb 10.9 g/dL (13.6-17.9) L 11/24/21 05:55 Hct 33.2 % (39.6-49.0) L D 11/24/21 05:55 Plt Count 301 K/uL (152-406) D 11/24/21 05:55 PT 16.0 SECONDS (9.5-12.5) H 11/17/21 18:30 INR 1.44 11/17/21 18:30 APTT 33.9 SECONDS (24.3-36.9) 11/17/21 18:30 Sodium 133 mmol/L (136-145) L 11/24/21 05:55 Potassium 4.3 mmol/L (3.5-5.1) 11/24/21 05:55 BUN 8 mg/dL (7-18) 11/24/21 05:55 Creatinine 0.47 mg/dL (0.55-1.3) L 11/24/21 05:55 Glucose 100 mg/dL (74-106) 11/24/21 05:55 Total Bilirubin 0.5 mg/dL (0.2-1.0) 11/20/21 05:29 AST 15 U/L (15-37) 11/20/21 05:29 ALT 16 U/L (12-78) 11/20/21 05:29 Alkaline Phosphatase 96 U/L (45-117) 11/20/21 05:29 Home Medications: Apixaban [Eliquis] 5 mg PO BID 11/18/21 Ascorbic Acid [Vitamin C*] 500 mg PO DAILY 11/18/21 Aspirin 81 mg PO DAILY 11/18/21 Collagenase [Santyl Ointment*] 1 appl TP DAILY 11/18/21 Divalproex [Depakote Sprinkle*] 250 mg PO BID 11/18/21 Lactulose [Enulose] 30 ml PO DAILYPRN PRN 11/18/21 Losartan Potassium [Cozaar*] 50 mg PO DAILY 11/18/21 Multivitamin with Minerals [One Daily Plus Minerals] 1 each PO DAILY 11/18/21 Zinc Oxide 1 appl TP DAILY 11/18/21 Zinc Sulfate [Zinc Sulfate*] 220 mg PO DAILY 11/18/21 Smz./Tmp. [Bactrim Ds 800 MG/160 MG*] 1 tab PO BID #14 tab 11/23/21 Diet: AHA Activity: Fall precautions Followup: NONE,NONE [Primary Care Provider] - 2-3 Days Time spent managing pt's care (in minutes): 36
--- NOTE | 2021-11-24 14:18 | P.PN ---
Subjective Date of Service: 11/24/21 Chief Complaint: Cellulitis of the right lower extremity Patient is aphasic, speaks 1 or 2 words occasionally. No issues overnight. Patient is tolerating diet. Physical Examination - Vital Signs Temperature: 98.5 F Blood Pressure: 122/64 Pulse: 85 Respirations: 18 Pulse Ox (%): 94 Assessment And Plan - Plan Physical exam GEN: Awake, aphasic. HEENT: Normal conjunctiva, sclera anicteric CV: Regular rate and rhythm, no murmur Pulm: Clear to auscultation bilaterally, adequate breath sounds bilaterally. ABD: Soft, nontender, nondistended Integumentary: erythema right lower extremity Neuro: Moves extremities, aphasic, respond with 1 or 2 words occasionally. Problem List Right lower extremity cellulitis, without severe sepsis/shock Acute metabolic encephalopathy secondary to infection Subacute DVT right lower extremity on anticoagulation acute/subacute R frontal lobe CVA History atrial flutter h/o stroke, aphasia Dementia Hypertension COVID-19 Plan Wound culture: MRSA Blood culture: Staph epidermidis in 3 bottles. Repeat blood cultures negative. Staph epidermidis likely a skin contaminant. ID is following. Continue oral Bactrim Echocardiogram: Negative for vegetation or clot. CT head was negative, MRI revealed acute/subacute nonhemorrhagic CVA in the left frontal lobe. Stroke appears to be in the [facility] ( [facility]) area per Dr. Mendoza. Patient is aphasic. Continue Eliquis, statin and folic acid Continue PT. Asymptomatic from COVID-19 VTE: Eliquis Code: Full Dispo: Awaiting [facility] placement.
[2021-11-24] MEDS: JUVEN PACKET PO SCH (20:58)
[2021-11-25] MEDS: D5 0.45 NS 1,000 ML IV SCH (01:10)
[2021-11-25] MEDS: JUVEN PACKET PO SCH ×2 (10:12→21:48)
[2021-11-25] MEDS: SMZ./TMP. 800/160 MG TABLET PO SCH ×2 (10:12→21:47)
[2021-11-25] MEDS: APIXABAN 5 MG TABLET PO SCH ×2 (10:12→21:48)
[2021-11-25] MEDS: DIVALPROEX NA 125 MG CAP PO SCH ×2 (10:12→21:47)
--- NOTE | 2021-11-25 10:39 | P.PN ---
Subjective Date of Service: 11/25/21 Chief Complaint: Cellulitis of the right lower extremity Patient seen and examined at bedside, stable. Review of Systems 10-point ROS is otherwise unremarkable Physical Examination - Vital Signs Temperature: 96.8 F Blood Pressure: 130/67 Pulse: 82 Respirations: 18 Pulse Ox (%): 98 - Studies Laboratory Last Values WBC 6.9 K/uL (4.3-10.9) 11/17/21 18:30 RBC 3.66 M/uL (4.33-5.43) L D 11/17/21 18:30 Hgb 11.0 g/dL (13.6-17.9) L D 11/17/21 18:30 Hct 33.2 % (39.6-49.0) L D 11/17/21 18:30 MCV 90.5 fL (80-100) 11/17/21 18: MCH 30.0 pg (27.0-35.0) 11/17/21 18: MCHC 33.2 g/dL (32.0-36.0) 11/17/21 18:30 RDW 15.4 % (12.1-15.2) H 11/17/21 18:30 Plt Count 229 K/uL (152-406) 11/17/21 18: MPV 7.1 fL (7.6-11.3) L D 11/17/21 18:30 Neutrophils % 64.2 % (41.7-73.7) 11/17/21 18: Lymphocytes % 21.7 % (15.3-44.8) 11/17/21 18: Monocytes % 11.6 % (3.3-12.3) 11/17/21 18:30 Eosinophils % 1.7 % (0-4.4) 11/17/21 18: Basophils % 0.8 % (0-1.3) 11/17/21 18:30 Absolute Neutrophils 4.4 K/uL (1.8-8.0) 11/17/21 18:30 Absolute Lymphocytes 1.5 K/uL (0.7-4.9) 11/17/21 18: Absolute Monocytes 0.8 K/uL (0.1-1.3) 11/17/21 18: Absolute Eosinophils 0.1 K/uL (0-0.5) 11/17/21 18:30 Absolute Basophils 0.1 K/uL (0-0.5) 11/17/21 18:30 PT 16.0 SECONDS (9.5-12.5) H 11/17/21 18:30 INR 1.44 11/17/21 18:30 APTT 33.9 SECONDS (24.3-36.9) 11/17/21 18:30 Sodium 137 mmol/L (136-145) 11/17/21 18:30 Potassium 3.7 mmol/L (3.5-5.1) 11/17/21 18:30 Chloride 99 mmol/L (98-107) 11/17/21 18:30 Carbon Dioxide 31 mmol/L (21-32) 11/17/21 18:30 BUN 12 mg/dL (7-18) 11/17/21 18:30 Creatinine 0.55 mg/dL (0.55-1.3) 11/17/21 18:30 Estimated GFR > 90 mL/min (=/>90) 11/17/21 18:30 Glucose 103 mg/dL (74-106) 11/17/21 18:30 Lactic Acid 1.1 mmol/L (0.4-2.0) 11/17/21 18:30 Calcium 8.6 mg/dL (8.5-10.1) 11/17/21 18:30 Total Bilirubin 0.7 mg/dL (0.2-1.0) 11/17/21 18:30 AST 26 U/L (15-37) 11/17/21 18:30 ALT 20 U/L (12-78) 11/17/21 18:30 Alkaline Phosphatase 150 U/L (45-117) H 11/17/21 18:30 Serum Total Protein 7.2 g/dL (6.4-8.2) 11/17/21 18:30 Albumin 2.5 g/dL (3.4-5.0) L 11/17/21 18:30 Globulin 4.7 g/dL (2.3-3.5) H 11/17/21 18:30 Albumin/Globulin Ratio 0.5 (1.1-1.8) L 11/17/21 18:30 Assessment And Plan - Plan Physical Exam: General: Oriented x1 HEENT: Atraumatic Neck: Supple Respiratory: Clear to auscultation bilaterally, Normal air movement Cardiovascular: No edema, Regular rate/rhythm Gastrointestinal: Normal bowel sounds, Non-distended Integumentary: Other (Several small wounds to bilateral lower extremities, right lower extremity swelling and erythema) Conclusions/Impression: Antibiotics: Bactrim: urrent Vancomycin: 11/17- Rocephin: Right lower extremity cellulitis Patient has multiple small wounds to left lower extremity. Wound care on board and treating. Wound culture from one of the wounds grew methicillin resistant Staphylococcus aureus, unknown which wound culture was obtained from Venous Doppler negative for DVT, foot x-ray showed no acute abnormalities -Recommend continuing with oral Bactrim Bacteremia -Blood cultures obtained on 11/17 grew staph epi and 10/22 bottles. Repeat blood cultures obtained on 11/19 showed no growth. Low clinical suspicion for true bacteremia as patient never had septic presentation, has been afebrile with no leukocytosis throughout the duration of hospitalization. Procalcitonin negativ e. Recommend sending patient home on oral Bactrim to complete 2 weeks course. COVID 19 -Tested positive on 11/22. Patient asymptomatic at this time, aerating well on room air. No need for treatment at this time, continue to monitor closely Acute metabolic encephalopathy Likely related to infection. Mentation improving. Plan of care discussed with Dr. Oneil Thank you for consultation
--- NOTE | 2021-11-25 14:24 | P.PN ---
Subjective Date of Service: 11/25/21 Chief Complaint: Cellulitis of the right lower extremity Patient is aphasic, speaks 1 or 2 words occasionally. No changes from yesterday Patient is tolerating diet. He is feeding with assistance. Physical Examination - Vital Signs Temperature: 97.3 F Blood Pressure: 106/53 Pulse: 83 Respirations: 14 Pulse Ox (%): 99 Assessment And Plan - Plan Physical exam GEN: Awake, aphasic. HEENT: Normal conjunctiva, sclera anicteric CV: Regular rate and rhythm, no murmur Pulm: Clear to auscultation bilaterally, adequate breath sounds bilaterally. ABD: Soft, nontender, nondistended Integumentary: erythema right lower extremity Neuro: Moves extremities, aphasic, respond with 1 or 2 words occasionally. Problem List Right lower extremity cellulitis, without severe sepsis/shock Acute metabolic encephalopathy secondary to infection Subacute DVT right lower extremity on anticoagulation acute/subacute R frontal lobe CVA History atrial flutter h/o stroke, aphasia Dementia Hypertension COVID-19 Plan Wound culture: MRSA Blood culture: Staph epidermidis in 3 bottles. Repeat blood cultures negative. Staph epidermidis likely a skin contaminant. ID is following. Continue oral Bactrim Echocardiogram: Negative for vegetation or clot. CT head was negative, MRI revealed acute/subacute nonhemorrhagic CVA in the left frontal lobe. Stroke in the [facility] ( [facility]) area per Dr. Mendoza. Patient is aphasic. Continue Eliquis, statin and folic acid Continue PT. Asymptomatic from COVID-19 VTE: Eliquis Code: Full Dispo: Awaiting shelter placement.
[2021-11-26] MEDS: D5 0.45 NS 1,000 ML IV SCH ×2 (03:03→18:00)
[2021-11-26] MEDS: JUVEN PACKET PO SCH ×2 (09:00→21:00)
[2021-11-26] MEDS: DIVALPROEX NA 125 MG CAP PO SCH ×2 (09:45→21:00)
[2021-11-26] MEDS: SMZ./TMP. 800/160 MG TABLET PO SCH ×2 (09:45→21:00)
[2021-11-26] MEDS: APIXABAN 5 MG TABLET PO SCH ×2 (09:45→21:00)
--- NOTE | 2021-11-26 10:43 | P.PN ---
Subjective Date of Service: 11/26/21 Chief Complaint: Cellulitis of the right lower extremity Patient seen and examined at bedside, area of boggy erythema noted on right lower extremity. CT ordered to rule out abscess. Review of Systems 10-point ROS is otherwise unremarkable Physical Examination - Vital Signs Temperature: 98.4 F Blood Pressure: 128/71 Pulse: 86 Respirations: 21 Pulse Ox (%): 96 - Studies Laboratory Results WBC 6.9 K/uL (4.3-10.9) 11/17/21 18:30 RBC 3.66 M/uL (4.33-5.43) L D 11/17/21 18:30 Hgb 11.0 g/dL (13.6-17.9) L D 11/17/21 18:30 Hct 33.2 % (39.6-49.0) L D 11/17/21 18:30 MCV 90.5 fL (80-100) 11/17/21 18: MCH 30.0 pg (27.0-35.0) 11/17/21 18: MCHC 33.2 g/dL (32.0-36.0) 11/17/21 18:30 RDW 15.4 % (12.1-15.2) H 11/17/21 18:30 Plt Count 229 K/uL (152-406) 11/17/21 18:30 MPV 7.1 fL (7.6-11.3) L D 11/17/21 18:30 Neutrophils % 64.2 % (41.7-73.7) 11/17/21 18:30 Lymphocytes % 21.7 % (15.3-44.8) 11/17/21 18:30 Monocytes % 11.6 % (3.3-12.3) 11/17/21 18:30 Eosinophils % 1.7 % (0-4.4) 11/17/21 18: Basophils % 0.8 % (0-1.3) 11/17/21 18:30 Absolute Neutrophils 4.4 K/uL (1.8-8.0) 11/17/21 18:30 Absolute Lymphocytes 1.5 K/uL (0.7-4.9) 11/17/21 18:30 Absolute Monocytes 0.8 K/uL (0.1-1.3) 11/17/21 18:30 Absolute Eosinophils 0.1 K/uL (0-0.5) 11/17/21 18:30 Absolute Basophils 0.1 K/uL (0-0.5) 11/17/21 18:30 PT 16.0 SECONDS (9.5-12.5) H 11/17/21 18:30 INR 1.44 11/17/21 18:30 APTT 33.9 SECONDS (24.3-36.9) 11/17/21 18:30 Sodium 137 mmol/L (136-145) 11/17/21 18:30 Potassium 3.7 mmol/L (3.5-5.1) 11/17/21 18:30 Chloride 99 mmol/L (98-107) 11/17/21 18: Carbon Dioxide 31 mmol/L (21-32) 11/17/21 18:30 BUN 12 mg/dL (7-18) 11/17/21 18:30 Creatinine 0.55 mg/dL (0.55-1.3) 11/17/21 18:30 Estimated GFR > 90 mL/min (=/>90) 11/17/21 18:30 Glucose 103 mg/dL (74-106) 11/17/21 18:30 Lactic Acid 1.1 mmol/L (0.4-2.0) 11/17/21 18: Calcium 8.6 mg/dL (8.5-10.1) 11/17/21 18:30 Total Bilirubin 0.7 mg/dL (0.2-1.0) 11/17/21 18: AST 26 U/L (15-37) 11/17/21 18:30 ALT 20 U/L (12-78) 11/17/21 18:30 Alkaline Phosphatase 150 U/L (45-117) H 11/17/21 18:30 Serum Total Protein 7.2 g/dL (6.4-8.2) 11/17/21 18:30 Albumin 2.5 g/dL (3.4-5.0) L 11/17/21 18:30 Globulin 4.7 g/dL (2.3-3.5) H 11/17/21 18:30 Albumin/Globulin Ratio 0.5 (1.1-1.8) L 11/17/21 18:30 Assessment And Plan - Plan Physical Exam: General: Oriented x1 HEENT: Atraumatic Neck: Supple Respiratory: Clear to auscultation bilaterally, Normal air movement Cardiovascular: No edema, Regular rate/rhythm Gastrointestinal: Normal bowel sounds, Non-distended Integumentary: Other (Several small wounds to bilateral lower extremities, right lower extremity swelling and erythema) Conclusions/Impression: Antibiotics: Bactrim: urrent Vancomycin: 11/17- Rocephin: Right lower extremity cellulitis Patient has multiple small wounds to left lower extremity. Wound care on board and treating. Wound culture from one of the wounds grew methicillin resistant Staphylococcus aureus, unknown which wound culture was obtained from Venous Doppler negative for DVT, foot x-ray showed no acute abnormalities -Area boggy erythema noted on right lower extremity, CT ordered to rule out abscess -Recommend continuing with oral Bactrim Bacteremia -Blood cultures obtained on 11/17 grew staph epi and 10/22 bottles. Repeat blood cultures obtained on 11/19 showed no growth. Low clinical suspicion for true bacteremia as patient never had septic presentation, has been afebrile with no leukocytosis throughout the duration of hospitalization. Procalcitonin negative. Nonetheless a transesophageal echocardiogram was performed, no evidence of acute vegetation noted. Recommend sending patient home on oral Bactrim to complete 2 weeks course. COVID 19 -Tested positive on 11/22. Patient asymptomatic at this time, aerating well on room air. No need for treatment at this time, continue to monitor closely Acute metabolic encephalopathy Likely related to infection. Mentation improving. Plan of care discussed with Dr. Oneil Thank you for consultation
--- NOTE | 2021-11-26 12:39 | RAD REPORT ---
EXAM DESCRIPTION: CT - Tib Fib Right W Cont - 11/26/2021 12:17 pm CLINICAL HISTORY: r/u abscess Leg pain and swelling. COMPARISON: No comparisons FINDINGS: Focal subcutaneous rim enhancing fluid collection is seen anterior mid pretibial soft tiss ues measuring 7 x 3.8 x 1.5 cm (CC x T x AP). The underlying tibia is unremarkable. Mild atherosclero sis. IMPRESSION: Subcutaneous abscess in the area of interest anterior right pretibial soft tissues as de tailed.
--- NOTE | 2021-11-26 18:03 | P.PN ---
Subjective Date of Service: 11/26/21 Chief Complaint: Cellulitis of the right lower extremity No new complaint. No changes from yesterday Patient is tolerating diet. Physical Examination - Vital Signs Temperature: 98.3 F Blood Pressure: 116/71 Pulse: 89 Respirations: 20 Pulse Ox (%): 96 Assessment And Plan - Plan Physical exam GEN: Awake, aphasic. HEENT: Normal conjunctiva, sclera anicteric CV: Regular rate and rhythm, no murmur Pulm: Clear to auscultation bilaterally, adequate breath sounds bilaterally. ABD: Soft, nontender, nondistended Integumentary: erythema right lower extremity Neuro: Moves extremities, aphasic, respond with 1 or 2 words occasionally. Problem List Right lower extremity cellulitis, without severe sepsis/shock Acute metabolic encephalopathy secondary to infection Subacute DVT right lower extremity on anticoagulation acute/subacute R frontal lobe CVA History atrial flutter h/o stroke, aphasia Dementia Hypertension COVID-19 Plan Wound culture: MRSA Blood culture: Staph epidermidis in 3 bottles. Repeat blood cultures negative. Staph epidermidis likely a skin contaminant. ID is following. Continue oral Bactrim Echocardiogram: Negative for vegetation or clot. CT head was negative, MRI revealed acute/subacute nonhemorrhagic CVA in the left frontal lobe. Stroke in the [facility] ( [facility]) area per Dr. Mendoza. Patient is aphasic. Continue Eliquis, statin and folic acid Continue PT. Repeat COVID-19 test is negative. COVID-19 x2 are negative. Prior positive test could be a false positive. VTE: Eliquis Code: Full Dispo: Awaiting shelter placement.
[2021-11-27 06:01] LABS: Absolute Lymphocytes (CBC) 2.3 K/uL (0.7-4.9); Hematocrit 36.4 % (39.6-49.0); Lymphocytes % 27.5 % (15.3-44.8); MPV 6.9 fL (7.6-11.3); RBC Red Blood Cell Count 4.02 M/uL (4.33-5.43)
[2021-11-27 06:14] LABS: BUN Blood Urea Nitrogen 12 mg/dL (7-18); Bicarbonate 28 mmol/L (21-32); Glucose Level 91 mg/dL (74-106); Potassium 4.4 mmol/L (3.5-5.1); Sodium Level 136 mmol/L (136-145)
[2021-11-27] MEDS: SMZ./TMP. 800/160 MG TABLET PO SCH ×2 (08:48→20:33)
[2021-11-27] MEDS: APIXABAN 5 MG TABLET PO SCH ×2 (08:48→20:34)
[2021-11-27] MEDS: DIVALPROEX NA 125 MG CAP PO SCH ×2 (08:48→20:34)
[2021-11-27] MEDS: JUVEN PACKET PO SCH ×2 (08:49→20:34)
--- NOTE | 2021-11-27 12:59 | P.PN ---
Subjective Date of Service: 11/27/21 Chief Complaint: Cellulitis of the right lower extremity No new complaint. It appears patient is talking more today. Patient is tolerating diet. Physical Examination - Vital Signs Temperature: 97.5 F Blood Pressure: 131/71 Pulse: 87 Respirations: 18 Pulse Ox (%): 98 Assessment And Plan - Plan Physical exam GEN: Awake, aphasic. HEENT: Normal conjunctiva, sclera anicteric CV: Regular rate and rhythm, no murmur Pulm: Clear to auscultation bilaterally, adequate breath sounds bilaterally. ABD: Soft, nontender, nondistended Integumentary: erythema right lower extremity Neuro: Moves extremities, aphasic, respond with 1 or 2 words occasionally. Problem List Right lower extremity cellulitis, without severe sepsis/shock Acute metabolic encephalopathy secondary to infection Subacute DVT right lower extremity on anticoagulation acute/subacute R frontal lobe CVA History atrial flutter h/o stroke, aphasia Dementia Hypertension COVID-19 Plan Clinically stable Wound culture: MRSA Blood culture: Staph epidermidis in 3 bottles. Repeat blood cultures negative. Staph epidermidis likely a skin contaminant. ID is following. Continue oral Bactrim Echocardiogram: Negative for vegetation or clot. CT head was negative, MRI revealed acute/subacute nonhemorrhagic CVA in the left frontal lobe. Stroke in the [facility] ( [facility]) area per Dr. Mendoza. Patient is aphasic. Continue Eliquis, statin and folic acid Continue PT. Repeat COVID-19 test is negative. COVID-19 x2 are negative. Prior positive test could be a false positive. VTE: Eliquis Code: Full Dispo: Awaiting half-way placement.
[2021-11-27] MEDS: D5 0.45 NS 1,000 ML IV SCH (20:33)
[2021-11-28] MEDS: JUVEN PACKET PO SCH ×2 (09:00→21:40)
[2021-11-28] MEDS: APIXABAN 5 MG TABLET PO SCH ×2 (09:30→21:40)
[2021-11-28] MEDS: DIVALPROEX NA 125 MG CAP PO SCH ×2 (09:30→21:40)
[2021-11-28] MEDS: SMZ./TMP. 800/160 MG TABLET PO SCH ×2 (09:30→21:40)
[2021-11-28] MEDS: D5 0.45 NS 1,000 ML IV SCH (10:00)
--- NOTE | 2021-11-28 13:36 | P.PN ---
Subjective Date of Service: 11/28/21 Chief Complaint: Cellulitis of the right lower extremity Patient has no new complain. He is becoming more verbal. Patient is tolerating diet. Physical Examination - Vital Signs Temperature: 96.8 F Blood Pressure: 110/62 Pulse: 86 Respirations: 12 Pulse Ox (%): 99 Assessment And Plan - Plan Physical exam GEN: Awake, aphasic. HEENT: Normal conjunctiva, sclera anicteric CV: Regular rate and rhythm, no murmur Pulm: Clear to auscultation bilaterally, adequate breath sounds bilaterally. ABD: Soft, nontender, nondistended Integumentary: erythema right lower extremity ulcer dressed Neuro: Moves extremities, aphasic, respond with 1 or 2 words occasionally. Problem List Right lower extremity cellulitis, without severe sepsis/shock Right lower extremity subcutaneous abscess. Acute metabolic encephalopathy secondary to infection Subacute DVT right lower extremity on anticoagulation acute/subacute R frontal lobe CVA History atrial flutter h/o stroke, aphasia Dementia Hypertension COVID-19 Plan Clinically stable Wound culture: MRSA Blood culture: Staph epidermidis in 3 bottles. Repeat blood cultures negative. Staph epidermidis likely a skin contaminant. ID is following. Continue oral Bactrim. General surgery consult for abscess. Echocardiogram: Negative for vegetation or clot. CT head was negative, MRI revealed acute/subacute nonhemorrhagic CVA in the left frontal lobe. Stroke in the [facility] ( [facility]) area per Dr. Mendoza. Patient is aphasic. Continue Eliquis, statin and folic acid Continue PT. Repeat COVID-19 test is negative. COVID-19 x2 are negative. Prior positive test could be a false positive. VTE: Eliquis Code: Full Dispo: [facility]
[2021-11-28] MEDS: SILVER SULFADIAZINE 1% 50 GM TOP SCH (21:00)
[2021-11-29] MEDS: SILVER SULFADIAZINE 1% 50 GM TOP SCH (09:00)
[2021-11-29] MEDS ORDERED: Ringers Lactate 1,000 ML IV ONE (10:39)
[2021-11-29] MEDS ORDERED: propofoL 200 MG/20 ML VIAL IV ONE ×2 (10:39→10:44)
[2021-11-29] MEDS ORDERED: FENTANYL CITR 100 MCG/2 ML ONE ×2 (10:39→11:24)
[2021-11-29] MEDS ORDERED: LIDOCAINE 1% MPF 5 ML VIAL ONE (10:39)
[2021-11-29] MEDS ORDERED: BUPIVACAINE 0.25% PF 10 ML VIAL ONE (10:50)
[2021-11-29] MEDS ORDERED: SODIUM HYPOCHLORITE 0.25% 473 ML ONE (10:50)
[2021-11-29] MEDS ORDERED: NS 0.9% VIAL 10 ML ONE (11:22)
[2021-11-29] MEDS ORDERED: Phenylephrine HCl 10 MG/ML 1 ML VIAL ONE (11:22)
--- NOTE | 2021-11-29 11:36 | P.OP ---
Preoperative diagnosis: RIGHT lower extremity abscess Postoperative diagnosis: RIGHT lower extremity abscess Primary procedure: Incision and Debridement of RIGHT lower extremity abscess Anesthesia: GETA+ Local Estimated blood loss: <2cc Specimen: cultures sent Findings: ~3cm abscess of RIGHT lower extremity along tibia Complications: None Transferred to: Recovery Room Condition: Good
[2021-11-29] MEDS ORDERED: HYDROCODONE/APAP 5/325 MG TAB PO PRN (11:38)
[2021-11-29 12:16] VITALS: O2SAT 96
--- NOTE | 2021-11-29 13:42 | P.PN ---
Subjective Date of Service: 11/29/21 Chief Complaint: Cellulitis of the right lower extremity Patient has no new complain. He is becoming more verbal. CT of right lower extremity demonstrating subcutaneous abscess. Physical Examination - Vital Signs Temperature: 97.3 F Blood Pressure: 111/59 Pulse: 85 Respirations: 18 Pulse Ox (%): 99 Assessment And Plan - Plan Physical exam GEN: Awake, aphasic. HEENT: Normal conjunctiva, sclera anicteric CV: Regular rate and rhythm, no murmur Pulm: Clear to auscultation bilaterally, adequate breath sounds bilaterally. ABD: Soft, nontender, nondistended Integumentary: erythema right lower extremity abscess. Neuro: Moves extremities, aphasic, respond with 1 or 2 words occasionally. Problem List Right lower extremity cellulitis, without severe sepsis/shock Right lower extremity subcutaneous abscess. Acute metabolic encephalopathy secondary to infection Subacute DVT right lower extremity on anticoagulation acute/subacute R frontal lobe CVA History atrial flutter h/o stroke, aphasia Dementia Hypertension COVID-19 Plan Clinically stable Wound culture: MRSA Blood culture: Staph epidermidis in 3 bottles. Repeat blood cultures negative. Staph epidermidis likely a skin contaminant. ID is following. Continue oral Bactrim. I&D performed of right lower extremity abscess performed by by Dr. Arnold 11/29. Echocardiogram: Negative for vegetation or clot. CT head was negative, MRI revealed acute/subacute nonhemorrhagic CVA in the left frontal lobe. Stroke in the [facility] ( [facility]) area per Dr. Mendoza. Patient is aphasic. Continue Eliquis, statin and folic acid Continue PT. Repeat COVID-19 test is negative. COVID-19 x2 are negative. 1+ Covid test. Patient accepted back to [facility] on 12/02 per . VTE: Eliquis Code: Full Dispo: [facility]
[2021-11-29] MEDS: DIVALPROEX NA 125 MG CAP PO SCH ×2 (15:14→20:19)
[2021-11-29] MEDS: D5 0.45 NS 1,000 ML IV SCH (15:14)
[2021-11-29] MEDS: SMZ./TMP. 800/160 MG TABLET PO SCH ×2 (15:14→20:19)
[2021-11-29] MEDS: APIXABAN 5 MG TABLET PO SCH ×2 (15:14→20:19)
[2021-11-29] MEDS: JUVEN PACKET PO SCH ×2 (15:16→20:21)
[2021-11-29] MEDS: SODIUM HYPOCHLORITE 0.25% 473 ML TOP SCH (20:20)
[2021-11-30] MEDS: D5 0.45 NS 1,000 ML IV SCH (02:00)
--- NOTE | 2021-11-30 07:03 | P.PN ---
Date of Service: 11/30/21 Subjective: improving, denies any new/worsening symptoms leg is "ok" speech improved since i last saw him ROS: 10 point ROS as noted above, otherwise negative Physical exam GEN: Awake, aphasic. HEENT: Normal conjunctiva, sclera anicteric CV: Regular rate and rhythm, no murmur Pulm: Clear to auscultation bilaterally, nonlabored respirations ABD: Soft, nontender, nondistended Integumentary: dressing c/d/i, no tenderness Neuro: Moves extremities, aphasic Problem List Right lower extremity cellulitis, without severe sepsis/shock Right lower extremity subcutaneous abscess. Acute metabolic encephalopathy secondary to infection Subacute DVT right lower extremity on anticoagulation acute/subacute R frontal lobe CVA History atrial flutter h/o stroke, aphasia Dementia Hypertension COVID-19 improved wound Cx: MRSA blood Cx: Staph epidermidis in 3 bottles. Repeat blood cultures negative. Staph epidermidis likely a skin contaminant. ID is following. Continue oral Bactrim. developed into abscess, s/p I&D on 11/[address] Arnold improving Echocardiogram: Negative for vegetation or clot. CT head: negative, MRI:acute/subacute nonhemorrhagic CVA in the left frontal lobe. Stroke in the [facility] area per Dr. Mendoza. Patient is aphasic from prior stroke with more pronounced aphasia, improving Continue Eliquis, statin and folic acid Continue PT. Repeat COVID-19 test is negative. COVID-19 x2 are negative. 1+ Covid test. VTE: eliquis Code: full Dispo: Patient accepted back to [facility] on 12/02 per . Time Spent Managing Pts Care (In Minutes): 35
[2021-11-30 08:01] LABS: Hematocrit 36.1 % (39.6-49.0); Lymphocytes % 28.4 % (15.3-44.8); MPV 6.8 fL (7.6-11.3); RBC Red Blood Cell Count 4.03 M/uL (4.33-5.43)
[2021-11-30 08:15] LABS: BUN Blood Urea Nitrogen 16 mg/dL (7-18); Bicarbonate 27 mmol/L (21-32); Glucose Level 102 mg/dL (74-106); Potassium 4.3 mmol/L (3.5-5.1); Sodium Level 137 mmol/L (136-145)
[2021-11-30] MEDS: SMZ./TMP. 800/160 MG TABLET PO SCH ×2 (11:19→20:07)
[2021-11-30] MEDS: SODIUM HYPOCHLORITE 0.25% 473 ML TOP SCH ×2 (11:19→20:08)
[2021-11-30] MEDS: APIXABAN 5 MG TABLET PO SCH ×2 (11:19→20:07)
[2021-11-30] MEDS: DIVALPROEX NA 125 MG CAP PO SCH ×2 (11:19→20:07)
[2021-11-30] MEDS: JUVEN PACKET PO SCH ×2 (11:21→20:08)
--- NOTE | 2021-11-30 11:37 | P.PN ---
Subjective Date of Service: 11/30/21 Chief Complaint: Cellulitis of the right lower extremity Patient seen and examined at bedside, status post surgical I&D of right tibial abscess. Patient is recovering well. Review of Systems 10-point ROS is otherwise unremarkable Physical Examination - Vital Signs Temperature: 97.7 F Blood Pressure: 131/62 Pulse: 88 Respirations: 18 Pulse Ox (%): 97 - Studies Laboratory Last Values WBC 6.9 K/uL (4.3-10.9) 11/17/21 18:30 RBC 3.66 M/uL (4.33-5.43) L D 11/17/21 18:30 Hgb 11.0 g/dL (13.6-17.9) L D 11/17/21 18:30 Hct 33.2 % (39.6-49.0) L D 11/17/21 18:30 MCV 90.5 fL (80-100) 11/17/21 18:30 MCH 30.0 pg (27.0-35.0) 11/17/21 18:30 MCHC 33.2 g/dL (32.0-36.0) 11/17/21 18:30 RDW 15.4 % (12.1-15.2) H 11/17/21 18:30 Plt Count 229 K/uL (152-406) 11/17/21 18:30 MPV 7.1 fL (7.6-11.3) L D 11/17/21 18:30 Neutrophils % 64.2 % (41.7-73.7) 11/17/21 18:30 Lymphocytes % 21.7 % (15.3-44.8) 11/17/21 18:30 Monocytes % 11.6 % (3.3-12.3) 11/17/21 18:30 Eosinophils % 1.7 % (0-4.4) 11/17/21 18:30 Basophils % 0.8 % (0-1.3) 11/17/21 18:30 Absolute Neutrophils 4.4 K/uL (1.8-8.0) 11/17/21 18:30 Absolute Lymphocytes 1.5 K/uL (0.7-4.9) 11/17/21 18:30 Absolute Monocytes 0.8 K/uL (0.1-1.3) 11/17/21 18:30 Absolute Eosinophils 0.1 K/uL (0-0.5) 11/17/21 18:30 Absolute Basophils 0.1 K/uL (0-0.5) 11/17/21 18:30 PT 16.0 SECONDS (9.5-12.5) H 11/17/21 18:30 INR 1.44 11/17/21 18:30 APTT 33.9 SECONDS (24.3-36.9) 11/17/21 18:30 Sodium 137 mmol/L (136-145) 11/17/21 18:30 Potassium 3.7 mmol/L (3.5-5.1) 11/17/21 18: Chloride 99 mmol/L (98-107) 11/17/21 18: Carbon Dioxide 31 mmol/L (21-32) 11/17/21 18:30 BUN 12 mg/dL (7-18) 11/17/21 18:30 Creatinine 0.55 mg/dL (0.55-1.3) 11/17/21 18:30 Estimated GFR > 90 mL/min (=/>90) 11/17/21 18:30 Glucose 103 mg/dL (74-106) 11/17/21 18:30 Lactic Acid 1.1 mmol/L (0.4-2.0) 11/17/21 18: Calcium 8.6 mg/dL (8.5-10.1) 11/17/21 18:30 Total Bilirubin 0.7 mg/dL (0.2-1.0) 11/17/21 18: AST 26 U/L (15-37) 11/17/21 18:30 ALT 20 U/L (12-78) 11/17/21 18:30 Alkaline Phosphatase 150 U/L (45-117) H 11/17/21 18:30 Serum Total Protein 7.2 g/dL (6.4-8.2) 11/17/21 18:30 Albumin 2.5 g/dL (3.4-5.0) L 11/17/21 18:30 Globulin 4.7 g/dL (2.3-3.5) H 11/17/21 18:30 Albumin/Globulin Ratio 0.5 (1.1-1.8) L 03/30/22 18:30 Assessment And Plan - Plan Physical Exam: General: Oriented x1 HEENT: Atraumatic Neck: Supple Respiratory: Clear to auscultation bilaterally, Normal air movement Cardiovascular: No edema, Regular rate/rhythm Gastrointestinal: Normal bowel sounds, Non-distended Integumentary: Other (Several small wounds to bilateral lower extremities, right lower extremity swelling and erythema) Conclusions/Impression: Antibiotics: Bactrim: urrent Vancomycin: 11/17- Rocephin: Right lower extremity cellulitis -Status post surgical I&D of right tibial abscess performed on 11/29. Preliminary OR cultures growing coagulase positive staph. Superficial wound cultures obtained on 11/18 grew methicillin-resistant Staph aureus. Patient has multiple small wounds to left lower extremity. Wound care on board and treating. Venous Doppler negative for DVT, foot x-ray showed no acute abnormalities -Recommend continuing with oral Bactrim Bacteremia -Blood cultures obtained on 11/17 grew staph epi and 10/22 bottles. Repeat blood cultures obtained on 11/19 showed no growth. Low clinical suspicion for true bacteremia as patient never had septic presentation, has been afebrile with no leukocytosis throughout the duration of hospitalization. Procalcitonin negative. Nonetheless a transesophageal echocardiogram was performed, no evidence of acute vegetation noted. Recommend treating with oral Bactrim for total of 14 days. COVID 19 -Tested positive on 11/22. Patient asymptomatic at this time, aerating well on room air. No need for treatment at this time, continue to monitor closely Acute metabolic encephalopathy Likely related to infection. Mentation improving. Plan of care discussed with Dr. Oneil Thank you for consultation
[2021-11-30] MEDS: COLLAGENASE 30 GM OINTMENT TOP SCH (18:30)
[2021-11-30] MEDS ORDERED: SILVER SULFADIAZINE 1% 50 GM TOP SCH (21:00)
--- NOTE | 2021-12-01 06:38 | P.PN ---
Date of Service: 12/01/21 Subjective: stable, no new symptoms/complaints ROS: 10 point ROS as noted above, otherwise negative Physical exam GEN: Awake, aphasic, appropriate response, slow HEENT: Normal conjunctiva, sclera anicteric CV: Regular rate and rhythm, no murmur Pulm: Clear to auscultation bilaterally, non-labored respirations ABD: Soft, nontender, nondistended Integumentary: dressing c/d/i, no tenderness Neuro: Moves extremities, aphasic Problem List Right lower extremity cellulitis, without severe sepsis/shock Right lower extremity subcutaneous abscess. Acute metabolic encephalopathy secondary to infection Subacute DVT right lower extremity on anticoagulation acute/subacute R frontal lobe CVA History atrial flutter h/o stroke, aphasia Dementia Hypertension COVID-19 improved wound Cx: MRSA blood Cx: Staph epidermidis in 3 bottles. Repeat blood cultures negative. Staph epidermidis likely a skin contaminant. ID is following. developed into abscess, s/p I&D on 11/[address] Arnold Continue oral Bactrim. 14 days total. end date 12/06 Echocardiogram: Negative for vegetation or clot. CT head: negative, MRI:acute/subacute nonhemorrhagic CVA in the left frontal lobe. Stroke in region of Broca's area per Dr. Mendoza. Patient is aphasic from prior stroke with more pronounced aphasia, improving Continue Eliquis, statin and folic acid Continue PT. Repeat COVID-19 test is negative. COVID-19 x2 are negative. 1+ Covid test. VTE: eliquis Code: full Dispo: Patient accepted back to [facility] on 12/02 per . plan for dc tomorrow Time Spent Managing Pts Care (In Minutes): 35
[2021-12-01] MEDS: APIXABAN 5 MG TABLET PO SCH ×2 (09:01→20:41)
[2021-12-01] MEDS: SMZ./TMP. 800/160 MG TABLET PO SCH ×2 (09:01→20:42)
[2021-12-01] MEDS: DIVALPROEX NA 125 MG CAP PO SCH ×2 (09:01→20:41)
[2021-12-01] MEDS: SODIUM HYPOCHLORITE 0.25% 473 ML TOP SCH ×2 (09:02→20:42)
[2021-12-01] MEDS: JUVEN PACKET PO SCH ×2 (09:03→20:43)
[2021-12-01] MEDS: COLLAGENASE 30 GM OINTMENT TOP SCH (09:04)
--- NOTE | 2021-12-01 11:50 | P.PN ---
Subjective Date of Service: 12/01/21 Chief Complaint: Cellulitis of the right lower extremity Patient seen and examined at bedside, doing well. Review of Systems 10-point ROS is otherwise unremarkable Physical Examination - Vital Signs Temperature: 97.6 F Blood Pressure: 126/70 Pulse: 104 Respirations: 16 Pulse Ox (%): 94 - Studies Laboratory Last Values WBC 6.9 K/uL (4.3-10.9) 11/17/21 18:30 RBC 3.66 M/uL (4.33-5.43) L D 11/17/21 18:30 Hgb 11.0 g/dL (13.6-17.9) L D 11/17/21 18:30 Hct 33.2 % (39.6-49.0) L D 11/17/21 18:30 MCV 90.5 fL (80-100) 11/17/21 18:30 MCH 30.0 pg (27.0-35.0) 11/17/21 18: MCHC 33.2 g/dL (32.0-36.0) 11/17/21 18:30 RDW 15.4 % (12.1-15.2) H 11/17/21 18:30 Plt Count 229 K/uL (152-406) 11/17/21 18:30 MPV 7.1 fL (7.6-11.3) L D 11/17/21 18:30 Neutrophils % 64.2 % (41.7-73.7) 11/17/21 18:30 Lymphocytes % 21.7 % (15.3-44.8) 11/17/21 18: Monocytes % 11.6 % (3.3-12.3) 11/17/21 18:30 Eosinophils % 1.7 % (0-4.4) 11/17/21 18: Basophils % 0.8 % (0-1.3) 11/17/21 18:30 Absolute Neutrophils 4.4 K/uL (1.8-8.0) 11/17/21 18:30 Absolute Lymphocytes 1.5 K/uL (0.7-4.9) 11/17/21 18: Absolute Monocytes 0.8 K/uL (0.1-1.3) 11/17/21 18: Absolute Eosinophils 0.1 K/uL (0-0.5) 11/17/21 18:30 Absolute Basophils 0.1 K/uL (0-0.5) 11/17/21 18:30 PT 16.0 SECONDS (9.5-12.5) H 11/17/21 18:30 INR 1.44 11/17/21 18:30 APTT 33.9 SECONDS (24.3-36.9) 11/17/21 18:30 Sodium 137 mmol/L (136-145) 11/17/21 18:30 Potassium 3.7 mmol/L (3.5-5.1) 11/17/21 18:30 Chloride 99 mmol/L (98-107) 11/17/21 18:30 Carbon Dioxide 31 mmol/L (21-32) 11/17/21 18:30 BUN 12 mg/dL (7-18) 11/17/21 18:30 Creatinine 0.55 mg/dL (0.55-1.3) 11/17/21 18:30 Estimated GFR > 90 mL/min (=/>90) 11/17/21 18:30 Glucose 103 mg/dL (74-106) 11/17/21 18:30 Lactic Acid 1.1 mmol/L (0.4-2.0) 11/17/21 18:30 Calcium 8.6 mg/dL (8.5-10.1) 11/17/21 18:30 Total Bilirubin 0.7 mg/dL (0.2-1.0) 11/17/21 18:30 AST 26 U/L (15-37) 11/17/21 18:30 ALT 20 U/L (12-78) 11/17/21 18:30 Alkaline Phosphatase 150 U/L (45-117) H 11/17/21 18:30 Serum Total Protein 7.2 g/dL (6.4-8.2) 11/17/21 18:30 Albumin 2.5 g/dL (3.4-5.0) L 11/17/21 18:30 Globulin 4.7 g/dL (2.3-3.5) H 11/17/21 18:30 Albumin/Globulin Ratio 0.5 (1.1-1.8) L 11/17/21 18:30 Assessment And Plan - Plan Physical Exam: General: Oriented x1 HEENT: Atraumatic Neck: Supple Respiratory: Clear to auscultation bilaterally, Normal air movement Cardiovascular: No edema, Regular rate/rhythm Gastrointestinal: Normal bowel sounds, Non-distended Integumentary: Other (Several small wounds to bilateral lower extremities, right lower extremity swelling and erythema) Conclusions/Impression: Antibiotics: Bactrim: urrent Vancomycin: 11/17- Rocephin: Right lower extremity cellulitis -Status post surgical I&D of right tibial abscess performed on 11/29. OR cultures growing MRSA. Superficial wound cultures obtained on 11/18 grew methicillin-resistant Staph aureus. Patient has multiple small wounds to left lower extremity. Wound care on board and treating. Venous Doppler negative for DVT, foot x-ray showed no acute abnormalities -Recommend continuing with oral Bactrim Bacteremia -Blood cultures obtained on 11/17 grew staph epi and / bottles. Repeat blood cultures obtained on 11/19 showed no growth. Low clinical suspicion for true bacteremia as patient never had septic presentation, has been afebrile with no leukocytosis throughout the duration of hospitalization. Procalcitonin negative. Nonetheless a transesophageal echocardiogram was performed, no evidence of acute vegetation noted. Recommend treating with oral Bactrim for t otal of 14 days. COVID 19 -Tested positive on 11/22. Patient asymptomatic at this time, aerating well on room air. No need for treatment at this time, continue to monitor closely Acute metabolic encephalopathy Likely related to infection. Mentation improving. Plan of care discussed with Dr. Oneil Thank you for consultation
[2021-12-01] MEDS: ENSURE ENLIVE 237 ML CAN PO SCH (20:42)
[2021-12-02 06:19] LABS: BUN Blood Urea Nitrogen 17 mg/dL (7-18); Bicarbonate 26 mmol/L (21-32); Glucose Level 90 mg/dL (74-106); Potassium 4.1 mmol/L (3.5-5.1); Sodium Level 136 mmol/L (136-145)
[2021-12-02 08:15] VITALS: BP 129/56; TEMP 97.2
[2021-12-02] MEDS: ENSURE ENLIVE 237 ML CAN PO SCH (09:00)
[2021-12-02] MEDS: JUVEN PACKET PO SCH (09:00)
[2021-12-02] MEDS: APIXABAN 5 MG TABLET PO SCH (09:03)
[2021-12-02] MEDS: COLLAGENASE 30 GM OINTMENT TOP SCH (09:03)
[2021-12-02] MEDS: SMZ./TMP. 800/160 MG TABLET PO SCH (09:03)
[2021-12-02] MEDS: DIVALPROEX NA 125 MG CAP PO SCH (09:03)
[2021-12-02] MEDS: SODIUM HYPOCHLORITE 0.25% 473 ML TOP SCH (09:04)
--- NOTE | 2021-12-02 09:05 | P.DS ---
Admission Date: 11/17/21 Discharge Date: 12/02/21 Disposition: TRANSFER TO [facility] Discharge Condition: FAIR Reason for Admission: Cellulitis of the right lower extremity Procedures: Problem List Right lower extremity cellulitis, without severe sepsis/shock Right lower extremity subcutaneous abscess. Acute metabolic encephalopathy secondary to infection / subacute CVA Subacute DVT right lower extremity on anticoagulation acute/subacute R frontal lobe CVA History atrial flutter h/o stroke, aphasia Dementia Hypertension COVID-19, incidental positive Brief History of Present Illness: 86-year-old male with history of dementia, atrial flutter, hypertension currently being treated for DVT of the right lower extremity presented to the emergency department for cellulitis of the right lower extremity. Patient has had some redness/swelling over the course of the last week or so but per his ex- at bedside has gotten significantly worse. Patient was evaluated in the emergency department his labs were unremarkable and x-ray and ultrasound of the right lower extremity are currently pending. Patient was given vancomycin/cefepime ED provider wishes to admit for further evaluation and management. Patient also does have a wound present to the lateral aspect of the fifth toe. Patient was started on Eliquis 10 p.o. twice daily on the . Hospital Course: Right lower extremity cellulitis -empirically treated with IV antibiotics. -initial blood culture: Staph epidermidis in 3 bottles. Repeat blood cultures negative. Staph epidermidis felt to be a skin contaminant. ID consulted. -echocardiogram (TTE) negative for vegetation or clot -Patient developed abscess in that location, requiring I&D by Dr. Arnold on 11/29. -ID recommended completion of 2 weeks total of Bactrim - end date: 12/06. -wound culture: MRSA Patient's altered mentation / confusion improved slowly throughout the hospitalization. CT head was negative for acute findings. MRI revealed acute vs subacute nonhemorrhagic CVA in the left frontal lobe. Neurology was consulted. Patient's altered mentation felt to be secondary to sepsis / infection. Patient with h/o aphasia and prior CVA in Broca's area and h/o dementia, which lowers patient's reserve and prior stroke symptoms can be temporarily exacerbated when patient is ill / has infection. Continue eliquis, statin, folic acid, physical therapy. Patient was incidentally found to test positive for COVID -19, and has been asymptomatic. Total of 3 COVID tests have been done, only the 2nd test was positive, others were negative. Vital Signs/Physical Exam: Temp Pulse Resp BP Pulse Ox 97.2 F 68 18 129/56 L 95 12/02/21 08:00 12/02/21 08:00 12/02/21 08:00 12/02/21 08:00 12/02/21 08:00 Physical exam GEN: Awake, aphasic, appropriate response, slow HEENT: Normal conjunctiva, sclera anicteric CV: Regular rate and rhythm, no murmur Pulm: Clear to auscultation bilaterally, non-labored respirations ABD: Soft, nontender, nondistended Integumentary: dressing c/d/i, no tenderness Neuro: Moves extremities, aphasic Laboratory Data at Discharge: WBC 7.5 K/uL (4.3-10.9) 12/02/21 05:51 Hgb 10.8 g/dL (13.6-17.9) L 12/02/21 05:51 Hct 33.0 % (39.6-49.0) L 12/02/21 05:51 Plt Count 321 K/uL (152-406) 12/02/21 05:51 PT 16.0 SECONDS (9.5-12.5) H 11/17/21 18:30 INR 1.44 11/17/21 18:30 APTT 33.9 SECONDS (24.3-36.9) 11/17/21 18:30 Sodium 136 mmol/L (136-145) 12/02/21 05:51 Potassium 4.1 mmol/L (3.5-5.1) 12/02/21 05:51 BUN 17 mg/dL (7-18) 12/02/21 05:51 Creatinine 0.58 mg/dL (0.55-1.3) 12/02/21 05:51 Glucose 90 mg/dL (74-106) 12/02/21 05:51 Total Bilirubin 0.5 mg/dL (0.2-1.0) 11/20/21 05:29 AST 15 U/L (15-37) 11/20/21 05:29 ALT 16 U/L (12-78) 11/20/21 05:29 Alkaline Phosphatase 96 U/L (45-117) 11/20/21 05:29 Home Medications: Apixaban [Eliquis] 5 mg PO BID 11/18/21 Ascorbic Acid [Vitamin C*] 500 mg PO DAILY 11/18/21 Aspirin 81 mg PO DAILY 11/18/21 Collagenase [Santyl Ointment*] 1 appl TP DAILY 11/18/21 Divalproex [Depakote Sprinkle*] 250 mg PO BID 11/18/21 Lactulose [Enulose] 30 ml PO DAILYPRN PRN 11/18/21 Losartan Potassium [Cozaar*] 50 mg PO DAILY 11/18/21 Multivitamin with Minerals [One Daily Plus Minerals] 1 each PO DAILY 11/18/21 Zinc Oxide 1 appl TP DAILY 11/18/21 Zinc Sulfate [Zinc Sulfate*] 220 mg PO DAILY 11/18/21 Smz./Tmp. [Bactrim Ds 800 MG/160 MG*] 1 tab PO BID #14 tab 11/23/21 Collagenase [Santyl Ointment*] 1 appl TOP DAILY tube 12/02/21 Diet: AHA Activity: Fall precautions Followup: NONE,NONE [Primary Care Provider] - 2-3 Days Time spent managing pt's care (in minutes): 45
--- NOTE | 2021-12-14 13:36 | CON ---
Date of Consultation: 11/28/2021 Brief History Of Present Illness: The patient is an 86-year-old male with a history of dem entia, atrial flutter, hypertension, treated for DVT of the right lower extremity, presented to the [facility] department with cellulitis of the right lower extremity along the anterior tibia. It was as sociated with redness, swelling over the course of the past week prior to his admission. According t o his ex-, things have gotten significantly worse with respect to pain. He was evaluated in the emergency department and no acute findings were noted prior to any imaging other than the above state d findings. Past Medical History: Significant for dementia, peripheral vascular disease, lymphedema, osteoarthri tis, incontinence, DVT, atrial flutter, hypertension. Past Surgical History: Includes a left knee replacement, bilateral cataract removal, neck and back s urgery. Social History: He is a resident of [facility]. No history of alcohol or recreational d rug use or smoking. Review of Systems: Unable to obtain due to confusion. Allergies: NO KNOWN DRUG ALLERGIES. Home Medications: Included Lovenox, Cozaar, tramadol. Physical Examination: General: At the time of my examination; he was awake and alert, but non-conversive. HEENT: Normocephalic. Sclerae anicteric. Mucosa membranes moist. Oropharynx clear. Neck: Supple without JVD. Chest: Normal expansion and excursion. Cardiovascular: Regular rate and rhythm. Pulmonary: Clear to auscultation bilaterally. Abdomen: Soft. Extremities: Focused examination of the right lower extremity shows an area of cellulitis, tendernes s, fluid accumulation along the right tibia consistent with abscess. It was tender to palpation. Laboratory Data: His laboratory exam revealed a white blood cell count on 11/27 of 8.3, hemoglobin _ , platelet count was 345. Sodium 136, potassium 4.4, chloride 100, carbon dioxide 28, BUN 1 2, creatinine 0.5. His glucose was 91. He had imaging performed, which included a CT of the right l ower extremity, which showed a subcutaneous abscess in the area of interest along the right anterior pretibial soft tissues as detailed 7 x 3.8 x 1.5 cm, soft tissue pretibial fluid collection. Assessment And Plan: This is an 86-year-old male, who comes in with a right lower extremity abscess. 1.IV fluid hydration. 2.Antibiotic coverage. 3.I have explained risks, benefits, and alternatives of incision and drainage and debridement of thi s infected right lower extremity abscess including, but not limited to bleeding, infection, damage to surrounding tissues, need for further operation and procedures to the patient's next of kin. They h ave agreed to proceed as indicated. We will proceed with procedure in a.m. Thank you for this interesting consult. KELVIN/DEVIN Voice ID: [id number] Report ID: [id number]
--- NOTE | 2021-12-14 20:12 | OP ---
Date of Procedure: 11/29/2021 Surgeon: Iraj Arnold MD, Preoperative Diagnosis: Right lower extremity abscess. Postoperative Diagnosis: Right lower extremity abscess. Procedure Performed: Incision and drainage with debridement of right lower extremity abscess. Anesthesia: General endotracheal plus local. Estimated Blood Loss: 2 cc. Specimen: Culture sent. Findings: Approximately 3 cm abscess of the right lower extremity along the tibia. Complications: None. Disposition: The patient transferred to the recovery room in good condition. Procedure In Detail: After informed consent was obtained, the patient was brought to the operating r oom, prepped and draped in the usual sterile fashion after adequate anesthesia was achieved. I made a linear incision along the edge of the tibia of the right lower extremity down to the subcutaneous t issues. Immediately encountered was some abscess material. All of this abscess material was culture d at this point, sent off for pathologic examination and speciation. I then copiously irrigated the area after all necrotic tissue was debrided sharply with curette as well as electrocautery. Hemostas is was achieved with electrocautery. At this point, the area was irrigated once again. Hemostasis w as achieved. The wound was then packed with sterile dressing and covered with a sterile dressing ove r the top. The patient tolerated the procedure well without evidence of complication and transferred to PACU in good condition. All counts were correct at the end of the ca se. TK/MODL Voice ID: [id number] Report ID: [id number]
== END 2021-12-02 10:44 | DRG 853 ==
LOC: ER 16:49 → ERHOLD 19:29 → 2ND 21:53
PROVIDERS: ADMIT Hospitalist; ATTEND Hospitalist
PROC: 0JDN0ZZ Extraction of Right Lower Leg Subcutaneous Tissue and Fascia, Open Approach (ICD-10-PCS; principal; 2021-11-29 10:30)
DX: A41.9 Sepsis, unspecified organism (principal); G93.41 Metabolic encephalopathy; I63.9 Cerebral infarction, unspecified; L03.115 Cellulitis of right lower limb; I82.401 Acute embolism and thrombosis of unspecified deep veins of right lower extremity; R47.01 Aphasia; L02.415 Cutaneous abscess of right lower limb; E44.0 Moderate protein-calorie malnutrition; F03.90 Unspecified dementia, unspecified severity, without behavioral disturbance, psychotic disturbance, mood disturbance, and anxiety; I73.9 Peripheral vascular disease, unspecified; I10 Essential (primary) hypertension; B95.62 Methicillin resistant Staphylococcus aureus infection as the cause of diseases classified elsewhere; Z86.73 Personal history of transient ischemic attack (TIA), and cerebral infarction without residual deficits; L89.312 Pressure ulcer of right buttock, stage 2; Z68.29 Body mass index [BMI] 29.0-29.9, adult; Z79.82 Long term (current) use of aspirin; Z96.652 Presence of left artificial knee joint; Z79.01 Long term (current) use of anticoagulants; Z20.822 Contact with and (suspected) exposure to COVID-19
CPT/HCPCS: 0240U; 36415; 70450; 70551; 73701; 80048; 80053; 80202; 81003; 81015; 82947; 83605; 84145; 85025; 85027; 85610; 85730; 87040; 87070; 87075; 87077; 87086; 87088; 87186; 87205; 93005; 93306; 93971; 96365; 96375; 97110; 97161; 97530; 99251; 99285; J0692; J2370; J2704; J3010; J3370; J3590; J7030; J7040; J7050; J7120; J7799; Q9967; U0003

== ENCOUNTER 2022-04-09 22:33 | Emergency (ER) | payer OTHER ==
[2022-04-09 23:25] LABS: Absolute Lymphocytes (CBC) 1.9 K/uL (0.7-4.9); Hematocrit 35.9 % (39.6-49.0); Lymphocytes % 23.8 % (15.3-44.8); MCV 86.6 fL (80-100); MPV 7.7 fL (7.6-11.3); RBC Red Blood Cell Count 4.14 M/uL (4.33-5.43)
[2022-04-09 23:33] LABS: Potassium 4.3 mmol/L (3.5-5.1)
--- NOTE | 2022-04-10 01:10 | EDPHYS ---
Physician Documentation [facility] Name: Leroy Palumbo Age: 86 yrs Sex: Male : 1935 Arrival Date: 04/09/2022 Time: 22:33 Bed 3 Private MD: ED Physician Gio Nair HPI: 04/10 01:58 This 86 yrs old Male presents to ER via EMS with complaints of fall from bed, facial kdr contusion. 01:58 Patient was found by halfway staff on the floor next to his bed. It was not known kdr how he managed to get from the bed to the floor. There was apparently a rail on the bed but he nonetheless was able to get to the floor. When EMS arrived the patient was back in the bed. Given his baseline Alzheimer's, he was not a good historian and able to relate how the fall happened. It was noted that he had a contusion on the lateral superior aspect of the right orbit as well as ecchymosis to his right wrist. It was not known if this was new or old.. Onset: The symptoms/episode began/occurred suddenly, just prior to arrival. Severity of symptoms: At their worst the symptoms were mild in the emergency department the symptoms are unchanged. It is unknown whether or not the patient has had similar symptoms in the past. It is unknown whether or not the patient has recently seen a physician. Historical: - Allergies: 04/09 22:41 No Known Allergies; jb4 - PMHx: 22:41 Alzheimer's disease; HTN; Lymphedema; Atrial flutter; polyosteoarthritis; Anxiety; jb4 Peripheral vascular disease; - Immunization history:: Adult Immunizations unknown. - Social history:: Smoking status: unknown. - Immunization history: Last tetanus immunization: unknown. ROS: 04/10 01:58 Constitutional: Unable to ascertain due to lack of family and the patient's baseline kdr altered mental status/Alzheimer's Unable to obtain ROS due to baseline dementia. Exam: 01:58 Constitutional: This is a well developed, well nourished patient who is awake, alert, kdr and in no acute distress. Head/Face: Normocephalic, atraumatic. Eyes: Pupils equal round and reactive to light, extra-ocular motions intact. Lids and lashes normal. Conjunctiva and sclera are non-icteric and not injected. Cornea within normal limits. Periorbital areas with no swelling, redness, or edema. Neck: Trachea midline, no thyromegaly or masses palpated, and no cervical lymphadenopathy. Supple, full range of motion without nuchal rigidity, or vertebral point tenderness. No Meningismus. Chest/axilla: Normal chest wall appearance and motion. Nontender with no deformity. No lesions are appreciated. Cardiovascular: Regular rate and rhythm with a normal S1 and S2. No gallops, murmurs, or rubs. Normal PMI, no JVD. No pulse deficits. Respiratory: Lungs have equal breath sounds bilaterally, clear to auscultation and percussion. No rales, rhonchi or wheezes noted. No increased work of breathing, no retractions or nasal flaring. Abdomen/GI: Soft, non-tender, with normal bowel sounds. No distension or tympany. No guarding or rebound. No evidence of tenderness throughout. 01:58 Head/face: Noted is abrasion(s), that are mild, of the right side of forehead and right eye, contusion, ecchymosis, hematoma, tenderness. Vital Signs: 04/09 22:37 BP 161 / 86; Pulse 85; Resp 16; Pulse Ox 99% on R/A; jb4 23:30 BP 155 / 86; Pulse 84; Resp 16; Pulse Ox 99% on R/A; jb4 04/10 01:15 BP 153 / 57; Pulse 82; Resp 16; Pulse Ox 100% on R/A; jb4 Andree Coma Score: 04/09 22:37 Eye Response: spontaneous(4). Verbal Response: confused(4). Motor Response: obeys jb4 commands(6). Total: 14. 23:30 Eye Response: spontaneous(4). Verbal Response: confused(4). Motor Response: obeys jb4 commands(6). Total: 14. 04/10 01:15 Eye Response: spontaneous(4). Verbal Response: confused(4). Motor Response: obeys jb4 commands(6). Total: 14. Trauma Score (Adult): 04/09 22:37 Eye Response: spontaneous(1); Verbal Response: confused(1); Motor Response: obeys jb4 commands(2); Systolic BP: > 89 mm Hg(4); Respiratory Rate: 10 to 29 per min(4); Andree Score: 14; Trauma Score: 12 23:30 Eye Response: spontaneous(1); Verbal Response: confused(1); Motor Response: obeys jb4 commands(2); Systolic BP: > 89 mm Hg(4); Respiratory Rate: 10 to 29 per min(4); Andree Score: 14; Trauma Score: 12 04/10 01:15 Eye Response: spontaneous(1); Verbal Response: confused(1); Motor Response: obeys jb4 commands(2); Systolic BP: > 89 mm Hg(4); Respiratory Rate: 10 to 29 per min(4); Andree Score: 14; Trauma Score: 12 MDM: 01:09 Patient medically screened. kdr 01:58 Data reviewed: vital signs, nurses notes, lab test result(s), radiologic studies. kdr Counseling: I had a detailed discussion with the patient and/or guardian regarding: the historical points, exam findings, and any diagnostic results supporting the discharge/admit diagnosis, lab results, radiology results, the need for outpatient follow up. 04/09 22:37 Order name: Basic Metabolic Panel [facility] 04/09 22:37 Order name: CBC with Diff kdr 04/09 22:37 Order name: CT Traumagram (Head C Spine CAP W Con) kdr 04/09 22:37 Order name: Type And Screen [facility] 04/09 22:37 Order name: Labs collected and sent; Complete Time: 23:11 kdr 04/09 22:37 Order name: Hand Right 3 View XRAY kdr Administered Medications: No medications were administered Disposition Summary: 04/10/22 01:09 Discharge Ordered Location: Home kdr Problem: new kdr Symptoms: have improved kdr Condition: Stable kdr Diagnosis - Unspecified injury of head, initial encounter kdr - Contusion of other part of head kdr - Pain in right wrist kdr - Pain in right hand kdr - Constipation kdr Followup: kdr - With: Private Physician - When: 2 - 3 days - Reason: If symptoms return, Further diagnostic work-up, Recheck today's complaints, Continuance of care, Re-evaluation by your physician Discharge Instructions: - Discharge Summary Sheet kdr - Constipation, Adult, [id number] kdr - Hand Contusion, [id number] kdr - Wrist Pain, Adult, [id number] kdr - Head Injury, Adult, [id number] kdr Forms: - Medication Reconciliation Form kdr - Thank You Letter kdr Prescriptions: - Miralax - take 1 packet by ORAL route once daily; 1 box; Refills: 0, Product Selection kdr Permitted Signatures: Dispatcher [employer] Gio Escoto MD MD kdr Konstantin Toledo, RN RN jb4
--- NOTE | 2022-04-10 01:10 | ER ---
Nurse's Notes [facility] Name: Leroy Palumbo Age: 86 yrs Sex: Male : 1935 Arrival Date: 04/09/2022 Time: 22:33 Bed 3 Private MD: Diagnosis: Unspecified injury of head, initial encounter;Contusion of other part of head;Pain in right wrist;Pain in right hand;Constipation Presentation: 04/09 22:37 Chief complaint: EMS states: Pt was laying in bed and rolled out of bed hitting his jb4 head. No LOC, height of fall was 2-3 feet. Pt is on blood thinners. Coronavirus screen: At this time, the client does not indicate any symptoms associated with coronavirus-19. Ebola Screen: No symptoms or risks identified at this time. Initial Sepsis Screen: Does the patient meet any 2 criteria? No. Patient's initial sepsis screen is negative. Does the patient have a suspected source of infection? No. Patient's initial sepsis screen is negative. Risk Assessment: Do you want to hurt yourself or someone else? Patient reports no desire to harm self or others. Onset of symptoms was April 09, 2022. Transition of care: patient was received from another setting of care (long-term care facility), [facility]. 22:37 Method Of Arrival: EMS: [facility] jb4 22:37 Acuity: LOI 3 jb4 22:37 Care prior to arrival: None. Mechanism of Injury: No Mechanism of Injury. Trauma event jb4 details: Injury occurred in the [facility]. Trauma Activation: Alert Physician: ED Physician; Name: Joanie; Notified At: 22:30; Arrived At: 22:30 Physician: General Surgeon; Name: ; Notified At: 22:30; Arrived At: Physician: Radiology; Name: Shaun; Notified At: 22:30; Arrived At: 22:30 Physician: Respiratory; Name: ; Notified At: 22:30; Arrived At: Physician: Lab; Name: ; Notified At: 22:30; Arrived At: Historical: - Allergies: 22:41 No Known Allergies; jb4 - PMHx: 22:41 Alzheimer's disease; HTN; Lymphedema; Atrial flutter; polyosteoarthritis; Anxiety; jb4 Peripheral vascular disease; - Immunization history:: Adult Immunizations unknown. - Social history:: Smoking status: unknown. - Immunization history: Last tetanus immunization: unknown. Screenin:37 Abuse screen: Denies threats or abuse. Nutritional screening: No deficits noted. jb4 Tuberculosis screening: No symptoms or risk factors identified. Fall risk At risk due to injury, age, immobility, prior history of falls. 04/10 01:31 Fall Risk Fall in past 12 months (25 points). Secondary diagnosis (15 points) dementia, kl IV access (20 points). Ambulatory Aid- None/Bed Rest/Nurse Assist (0 pts). Gait- Normal/Bed Rest/Wheelchair (0 pts) Mental Status- Overestimates/Forgets Limitations (15 pts.). Total Hutchison Fall Scale indicates High Risk Score (45 or more points). Primary Survey: 04/09 22:37 Uncontrolled hemorrhage is observed, assessment has been re-ordered to <C> ABC. A: The jb4 client is awake and alert. The airway is patent. Breathing/Chest: Spontaneous respiratory effort, equal unlabored respirations, breath sounds clear bilaterally, regular pattern, symmetrical chest rise and fall. Circulation: No external hemorrhage present. Regular and strong central pulse, skin warm/dry/normal color. Disability Pupils are equal, round, reactive to light and accommodation. Client is alert. Exposure/Environment: All clothing and personal items were removed. Forensic evidence collection is not deemed to be indicated at this time. Items placed in patient belonging bag. 23:30 Reassessment Alertness and Airway: Awake and alert. The airway is patent. Breathing: jb4 Spontaneous respiratory effort, equal unlabored respirations, breath sounds clear bilaterally, regular pattern with symmetrical chest rise and fall. Circulation: No external hemorrhage noted. Regular and strong central pulse, skin warm/dry/normal color. Disability: Pupils Pupils are equal, round, reactive to light and accomodation. Alert. Assessment: 22:37 General: Appears in no apparent distress. comfortable, Behavior is calm, cooperative, jb4 appropriate for age. Pain: Complains of pain in right temporal area Pain does not radiate. Pain currently is 5 out of 10 on a pain scale. Neuro: Level of Consciousness is awake, alert, Oriented to person. EENT: No signs and/or symptoms were reported regarding the EENT system. Cardiovascular: Patient's skin is warm and dry. Respiratory: Airway is patent Respiratory effort is even, unlabored, Respiratory pattern is regular, symmetrical. Derm: Skin is intact, Skin is pink, warm \T\ dry. Musculoskeletal: Circulation, motion, and sensation intact. Range of motion: intact in all extremities. Injury Description: Bruise sustained to right temporal area and dorsal aspect of right wrist. 23:30 Reassessment: Patient appears in no apparent distress at this time. No changes from jb4 previously documented assessment. Patient and/or family updated on plan of care and expected duration. Pain level reassessed. 04/10 00:30 Reassessment: Patient appears in no apparent distress at this time. No changes from jb4 previously documented assessment. Patient and/or family updated on plan of care and expected duration. Pain level reassessed. 01:30 Reassessment: Pt is resting in bed with eyes closed, respirations are even and jb4 unlabored with no s/s of pain or distress noted. 02:30 Reassessment: Patient appears in no apparent distress at this time. No changes from jb4 previously documented assessment. Patient and/or family updated on plan of care and expected duration. Pain level reassessed. 02:56 Reassessment: Pt cleaned, and brief changed. jb4 Vital Signs: 04/09 22:37 BP 161 / 86; Pulse 85; Resp 16; Pulse Ox 99% on R/A; jb4 23:30 BP 155 / 86; Pulse 84; Resp 16; Pulse Ox 99% on R/A; jb4 04/10 01:15 BP 153 / 57; Pulse 82; Resp 16; Pulse Ox 100% on R/A; jb4 Andree Coma Score: 04/09 22:37 Eye Response: spontaneous(4). Verbal Response: confused(4). Motor Response: obeys jb4 commands(6). Total: 14. 23:30 Eye Response: spontaneous(4). Verbal Response: confused(4). Motor Response: obeys jb4 commands(6). Total: 14. 04/10 01:15 Eye Response: spontaneous(4). Verbal Response: confused(4). Motor Response: obeys jb4 commands(6). Total: 14. Trauma Score (Adult): 04/09 22:37 Eye Response: spontaneous(1); Verbal Response: confused(1); Motor Response: obeys jb4 commands(2); Systolic BP: > 89 mm Hg(4); Respiratory Rate: 10 to 29 per min(4); Imperial Score: 14; Trauma Score: 12 23:30 Eye Response: spontaneous(1); Verbal Response: confused(1); Motor Response: obeys jb4 commands(2); Systolic BP: > 89 mm Hg(4); Respiratory Rate: 10 to 29 per min(4); Imperial Score: 14; Trauma Score: 12 08 01:15 Eye Response: spontaneous(1); Verbal Response: confused(1); Motor Response: obeys jb4 commands(2); Systolic BP: > 89 mm Hg(4); Respiratory Rate: 10 to 29 per min(4); Imperial Score: 14; Trauma Score: 12 ED Course: 04/09 22:33 Patient arrived in ED. ds4 22:36 Gio Nair MD is Attending Physician. kdr 22:37 Konsatntin Toledo, SARA is Primary Nurse. jb4 22:37 Patient has correct armband on for positive identification. Bed in low position. Call jb4 light in reach. Side rails up X 1. 22:37 Thermoregulation: warm blanket given to patient. jb4 22:41 Triage completed. jb4 22:41 Arm band placed on right wrist. EKG completed in triage. Results shown to MD. jb4 22:52 Hand Right 3 View XRAY In Process Unspecified. EDMS 22:58 Initial lab(s) drawn, by me, sent to lab. Inserted saline lock: 18 gauge in right jb4 antecubital area, using aseptic technique. Blood collected. Patient maintains SpO2 saturation greater than 95% on room air. 04/10 00:23 CT Traumagram (Head C Spine CAP W Con) In Process Unspecified. EDMS 01:30 No provider procedures requiring assistance completed. IV discontinued, intact, kl bleeding controlled, No redness/swelling at site. Pressure dressing applied. Administered Medications: No medications were administered Medication: 01:32 VIS not applicable for this client. kl Output: 02:58 Urine: 1ml (Voided); Total: 1ml. jb4 Outcome: 01:09 Discharge ordered by . jacques 01:30 Discharged to fpc. Report called to renard elena 01:30 Condition: stable 01:30 Discharge instructions given to fpc, Instructed on discharge instructions, follow up and referral plans. medication usage, Demonstrated understanding of instructions, follow-up care, medications, Prescriptions given X 1. 02:58 Patient's length of stay in the Emergency Department was greater than 2 hours. Pending jb4 transfer back to facility.Patient's length of stay extended due to 02:58 Patient left the ED. jb4 Signatures: Dispatcher [employer] EDSanjana Myers, RN RN Gio Giraldo MD MD kdr Swanson, Donovan ds4 Konstantin Toledo, RN RN jb4
[2022-04-10 07:16] VITALS: BP 153/57; O2SAT 100
--- NOTE | 2022-04-11 10:46 | RAD REPORT ---
EXAM DESCRIPTION: RAD - Hand Right 3 View - 04/09/2022 10:51 pm CLINICAL HISTORY: 86 years Male, PAIN right hand pain TECHNIQUE: 3 views COMPARISON: None. FINDINGS: BONES/JOINT: Severe osteopenia limits detailed bony evaluation. No acute fracture or dislo cation. Severe osteoarthritis (OA) first CMC and moderate OA scaphoid/trapezium/trapezoid complex (ST T). Mild OA first MCP. Moderate degenerative changes distal radial ulnar joint and radiocarpal joint. SOFT TISSUES: Unremarkable. No radiopaque foreign body. IMPRESSION: 1. No acute fracture. 2. Severe OA first CMC. Electronically signed by: Jason Kelly MD 04/09/2022 11:23 PM CDT Due to temporary technical issues with the PACS/Fluency reporting system, reports are being signed by the in house radiologists without review as a courtesy to insure prompt reporting. The interpreting radiologist is fully responsible for the content of the report.
--- NOTE | 2022-04-11 11:44 | RAD REPORT ---
EXAM DESCRIPTION: CT - Head C Spine Sabino Oliveira - 04/10/2022 3:33 am CLINICAL HISTORY: Fall from bed. TECHNIQUE: Noncontrast CT through the head was performed. Axial, coronal, and sagittal reconstructio ns were created and sent to PACS. CT of the cervical spine was performed without contrast. Axial, coronal, and sagittal reconstructions were created and sent to PACS. CT of the chest, abdomen, and pelvis was performed following intravenous administration of iodinated contrast. Oral contrast was not administered. Axial, coronal, and sagittal reconstructions were creat ed and sent to PACS. These exams were performed according to our departmental dose-optimization program which includes use of Automated Exposure Control, adjustment of the mA and/or kV according to patient size and/or use o f iterative reconstruction technique. COMPARISON: None. FINDINGS: CT Head: There is diffuse age-appropriate atrophy seen throughout the brain parenchyma. Mild periventricular w tiny matter changes are seen to be present and there is moderate ex vacuo dilatation of the ventricul ar system. There is no intra-axial or extra-axial bleed. There is no mass or mass effect. Small chron ic right basal ganglia lacunar infarct. Mucosal retention cysts in the inferior left maxillary sinus. The remaining visualized paranasal sinu ses and mastoid air cells are clear. No acute fracture is identified. CT cervical spine: No acute osseous abnormality identified. Vertebral body height and alignment are maintained. No atlan todental interval widening. Atlantoaxial alignment is maintained. The facet joints are well aligned. The posterior elements are intact. The occipital condyles are well aligned with the C1 lateral masses . The transverse foramina are intact. C2-C3: Moderate left-sided and severe right-sided neuroforaminal narrowing due to uncinate hypertroph y. No significant central canal narrowing. C3-C4: Moderate left-sided and severe right-sided neuroforaminal narrowing due to uncinate hypertroph y. No significant central canal narrowing. C4-C5: Moderate left-sided and severe right-sided neuroforaminal narrowing due to uncinate hypertroph y. No significant central canal narrowing. C5-C6: Mild bilateral neuroforaminal narrowing due to uncinate hypertrophy. No significant central ca nal narrowing. C6-C7: Mild left-sided neuroforaminal narrowing due to uncinate hypertrophy. No significant central c anal or right-sided neuroforaminal narrowing. Paraspinal soft tissues: No prevertebral soft tissue swelling. No evidence of epidural hematoma. Mode rate calcific atherosclerosis in the bilateral carotid bulbs. CT chest, abdomen, and pelvis: Lungs and pleura: No pulmonary consolidation. No pleural effusion. No pneumothorax. Mild streak artif act adjacent to the anterior left first rib resulting in adjacent hypodense appearance in the anterio r left upper lobe. Small calcified granuloma in the superior segment of the right lower lobe. Mild at electasis in the bilateral lower lobes. Mediastinum and neck: No mediastinal lymphadenopathy identified by CT size criteria. Unremarkable chioma earance of the thyroid gland. Cardiac: Mild cardiomegaly. No pericardial effusion. No thoracic aortic aneurysm or dissection. Mild calcific atherosclerosis. Hepatobiliary: No concerning hepatic lesion identified. The portal veins are patent. The gallbladder is unremarkable. No biliary ductal dilatation. Pancreas: Unremarkable. Spleen: Unremarkable. Gastrointestinal: Large amount of fecal material in the rectum with trace surrounding fat stranding. No evidence of bowel obstruction or perienteric inflammation. The appendix is suspected surgically ab sent. Moderate amount of fecal material in the sigmoid colon. Small to moderate amount throughout the remainder of the colon. Adrenals: No abnormality identified in either adrenal gland. Renal: No concerning parenchymal abnormality in either kidney. Small nonobstructive calculi in the in ferior right kidney. No hydronephrosis or ureteral calculi bilaterally. Bladder/Reproductive: Unremarkable appearance of the urinary bladder by CT technique. Moderate prosta tomegaly. Vascular/Lymphatics: No lymphadenopathy identified by CT size criteria. Abdominal aorta is normal in caliber. Moderate mixed atherosclerosis. Musculoskeletal: No acute osseous abnormality identified. Chronic severely comminuted displaced fract ure involving the right acetabulum. Partial osseous resorption of the upper one third of the right fe moral head. Chronic healed fracture deformity of the right inferior pubic ramus. Chronic compression fracture is at T12, L1, and L2, with vertebroplasty cement at T12 and L1. No significant bony retropu lsion. No acute compression fracture identified. Fluid / peritoneum: No significant free fluid. No free intraperitoneal air identified. IMPRESSION: 1. No acute intracranial abnormality identified. Chronic findings. 2. No acute osseous abnormality identified in the cervical spine. Degenerative changes. 3. No acute traumatic abnormality identified in the chest, abdomen, or pelvis. 4. Chronic severe comminution and fragmentation of the right acetabulum, with osteolysis of the upp er one third of the right femoral head. Findings are likely sequela of remote prior fracture. 5. Chronic compression fractures in the thoracolumbar spine. 6. Large amount of fecal material in the rectum with trace surrounding fat stranding. Correlate for potential constipation/fecal impaction. Electronically signed by: Joy Coats MD 04/10/2022 12:50 AM CDT Due to temporary technical issues with the PACS/Fluency reporting system, reports are being signed by the in house radiologists without review as a courtesy to insure prompt reporting. The interpreting radiologist is fully responsible for the content of the report.
== END 2022-04-10 02:58 | disposition home or self-care (01) ==
LOC: ER 22:33
DX: S00.83XA Contusion of other part of head, initial encounter (principal); S09.90XA Unspecified injury of head, initial encounter; M25.531 Pain in right wrist; M79.641 Pain in right hand; K59.00 Constipation, unspecified; G30.9 Alzheimer's disease, unspecified; F02.80 Dementia in other diseases classified elsewhere, unspecified severity, without behavioral disturbance, psychotic disturbance, mood disturbance, and anxiety; I10 Essential (primary) hypertension
CPT/HCPCS: 85025; 80048; 36415; 86900; 86850; 86901; 70450; 72125; 71260; 74177; 73130; Q9967; 99284

== ENCOUNTER 2022-08-31 10:04 | Emergency (ER) | payer OTHER ==
--- NOTE | 2022-08-31 11:26 | RAD REPORT ---
EXAM DESCRIPTION: CT - Head C Spine Cap Wo Con - 08/31/2022 10:25 am CLINICAL HISTORY: Trauma, head and neck injury. Chest, abdomen and pelvis pain. unwitnessed fall, head injury COMPARISON: Head C Spine Cap W Con dated 04/09/2022; Head C Spine Cap W Con dated 08/03/2021 TECHNIQUE: CT head without contrast. CT cervical spine without contrast with coronal and sagittal reformatted images. CT chest, abdomen and pelvis without contrast with coronal and sagittal reformatted images of the [facility]. All CT scans are performed using dose optimization technique as appropriate and may include automated exposure control or mA/KV adjustment according to patient size. FINDINGS: CT HEAD WITHOUT CONTRAST: No intracranial hemorrhage, hydrocephalus or extra-axial fluid collection. Prominent diffuse brain at rophy pattern. No areas of brain edema or midline shift. The paranasal sinuses and mastoids are clear. The calvarium is intact. CT CERVICAL SPINE WITHOUT CONTRAST: No fracture or subluxation. Moderate multilevel degenerative spondylosis is present. The prevertebral soft tissues are normal in thickness. CT CHEST, ABDOMEN, PELVIS WITHOUT CONTRAST: NOTE: Lack of contrast is a significant limitation in the assessment of trauma related findings. Spec ifically, solid organ, vascular and bowel evaluation is significantly limited. Mild linear opacities in both lung bases likely related to mild atelectasis.No pneumothorax or perica rdial/pleural fluid. No evidence of intra-abdominal visceral injury, free fluid or free air is seen within the above detai led limitations. Vertebroplasty cement is noted lower thoracic levels. Moderate L1 compression fracture seen with loss of vertebral body height, chronic in this patient. No acute fracture demonstrated. Significant chronic deformity of the right hip. Moderate levoscoliosi s of the lumbar spine. IMPRESSION: Negative for acute traumatic findings within the above detailed limitations.
[2022-08-31] MEDS ORDERED: LIDOCAINE 1% MPF 5 ML VIAL ONE (12:37)
--- NOTE | 2022-08-31 12:52 | ER ---
Nurse's Notes [facility] Name: Leroy Palumbo Age: 86 yrs Sex: Male : 1935 Arrival Date: 08/31/2022 Time: 10:08 Bed 17 Private MD: Diagnosis: Fall from bed, initial encounter;Skin tear left forearm;Laceration without foreign body of forehead Presentation: 08/31 10:08 Chief complaint: EMS states: unwitnessed fall, "rolled out of bed" at halfway this ss morning. small laceration noted to forehead, no bleeding noted. EMS reports skin tear to L forearm and applied dressing en route to ED. Pt is awake and alert and reported to be at his baseline mental status. Care prior to arrival: Glucose check: 68. Mechanism of Injury: Fall reportedly "rolled out of bed". Trauma event details: Injury occurred in the [facility], Injury occurred: [facility] Injury occurred: August 31, 2022. 10:08 Acuity: LOI 2 ss 10:08 Method Of Arrival: EMS: [facility] ss 10:21 Coronavirus screen: Client denies travel out of the [place] in the last 14 days. Ebola ss Screen: Patient denies exposure to infectious person. Patient denies travel to an Ebola-affected area in the 21 days before illness onset. Initial Sepsis Screen: Does the patient meet any 2 criteria? No. Patient's initial sepsis screen is negative. Does the patient have a suspected source of infection? No. Patient's initial sepsis screen is negative. Risk Assessment: Do you want to hurt yourself or someone else? Patient reports no desire to harm self or others. Onset of symptoms was August 31, 2022. Trauma Activation: Alert Physician: ED Physician; Name: ; Notified At: ; Arrived At: Physician: General Surgeon; Name: ; Notified At: ; Arrived At: Physician: Radiology; Name: ; Notified At: ; Arrived At: Physician: Respiratory; Name: ; Notified At: ; Arrived At: Physician: Lab; Name: ; Notified At: ; Arrived At: Historical: - Allergies: 10:21 No Known Allergies; ss - PMHx: 10:21 Alzheimer's disease; Anxiety; atrial flutter; lymphedema; peripheral vascular disease; ss polyosteoarthritis; HTN; Screenin:08 Abuse screen: unable to obtain. Tuberculosis screening: No symptoms or risk factors ss identified. Primary Survey: 10:08 NO uncontrolled hemorrhage observed. A: The client is awake and alert. The airway is ss patent. Breathing/Chest: Spontaneous respiratory effort, equal unlabored respirations, breath sounds clear bilaterally, regular pattern, symmetrical chest rise and fall. Circulation: No external hemorrhage present. Regular and strong central pulse, skin warm/dry/normal color. Disability Pupils are equal, round, reactive to light and accommodation. Exposure/Environment: There is no evidence of uncontrolled external bleeding. A warming method has been applied: A warm blanket has been provided to the patient. Assessment: 10:15 Reassessment: Pt to CT now VIA stretcher. ss 10:31 General: Appears in no apparent distress. comfortable, Behavior is calm, cooperative, kr3 quiet. Pain:. 13:26 Reassessment: Patient appears in no apparent distress at this time. Patient and/or kr3 family updated on plan of care and expected duration. Pain level reassessed. Patient is alert, oriented x 3, equal unlabored respirations, skin warm/dry/pink. 13:46 Reassessment: called report to SARA Marsh at [place]. Stated he will call back with an kr3 ETA for pickle cutter. Vital Signs: 10:08 BP 129 / 72; Pulse 64; Resp 17; Pulse Ox 94% on R/A; ss 11:45 BP 128 / 62; Pulse 58; Resp 17; Pulse Ox 96% ; kr3 13:25 BP 138 / 54; Pulse 58; Resp 17; Pulse Ox 97% on R/A; kr3 Andree Coma Score: 10:08 Eye Response: spontaneous(4). Verbal Response: oriented(5). Motor Response: obeys ss commands(6). Total: 15. Trauma Score (Adult): 10:08 Eye Response: to voice(0); Verbal Response: confused(1); Motor Response: withdraws from ss pain(1); Systolic BP: > 89 mm Hg(4); Respiratory Rate: 10 to 29 per min(4); Andree Score: 11; Trauma Score: 10; This is baseline for patient. ED Course: 10:08 Patient arrived in ED. kb 10:08 [facility] kb 10:08 Rosa Aceves MD is Attending Physician. kb 10:08 Patient has correct armband on for positive identification. Side rails up X2. Pulse ox ss on. NIBP on. 10:18 Triage completed. ss 10:21 Arm band placed on right wrist. ss 10:27 CT Traumagram (Head C Spine CAP wo con) In Process Unspecified. EDMS 10:31 Becca Willoughby, RN is Primary Nurse. kr3 Administered Medications: 13:00 Drug: Lidocaine (1 %) 1 vials {Note: GIVEN BY PROVIDER AT BEDSIDE FOR LAC REPAIR.} kr3 Volume: 5 ml; Route: Infiltration; Outcome: 12:52 Discharge ordered by MD. kb 14:39 Patient left the ED. kr3 Signatures: Dispatcher [employer] EDMS Kenna Shepherd, ANTONIA-Radha KNIGHT-Caryn Haile RN RN Becca Willoughby, RN RN kr3
--- NOTE | 2022-08-31 12:52 | EDPHYS ---
Physician Documentation [facility] Name: Leroy Palumbo Age: 86 yrs Sex: Male : 1935 Arrival Date: 08/31/2022 Time: 10:08 Bed 17 Private MD: ED Physician Rosa Aceves HPI: 08/31 14:10 This 86 yrs old Male presents to ER via EMS with complaints of Fall Injury. kb 14:10 Details of fall: The patient fell from a height, off furniture. Onset: The kb symptoms/episode began/occurred this morning. Associated injuries: The patient sustained injury to the head, laceration, 3 cm(s), of the forehead, dorsal aspect of left forearm, skintear. Severity of symptoms: At their worst the symptoms were moderate, in the emergency department the symptoms are unchanged. The patient has not experienced similar symptoms in the past. The patient has not recently seen a physician. EMS reports pt fell out of bed and was found on the floor with laceration and skin tear. Pt's neuro status is normal for him. . Historical: - Allergies: 10:21 No Known Allergies; ss - PMHx: 10:21 Alzheimer's disease; Anxiety; atrial flutter; lymphedema; peripheral vascular disease; ss polyosteoarthritis; HTN; ROS: 13:58 Constitutional: Negative for fever, chills, and weight loss. kb 13:58 Skin: Positive for laceration(s), of the forehead and dorsal aspect of left forearm. 13:58 All other systems are negative. Exam: 13:58 Constitutional: This is a well developed, well nourished patient who is awake, alert, kb and in no acute distress. Cardiovascular: Regular rate and rhythm with a normal S1 and S2. No gallops, murmurs, or rubs. No pulse deficits. Respiratory: Respirations even and unlabored. No increased work of breathing. Talking in full sentences Abdomen/GI: Soft, non-tender. No distention Back: No spinal tenderness. No costovertebral tenderness. Full range of motion. MS/ Extremity: Pulses equal, no cyanosis. Neurovascular intact. Full, normal range of motion. 13:58 Neuro: Exam negative for acute changes, Orientation: to person. Vital Signs: 10:08 BP 129 / 72; Pulse 64; Resp 17; Pulse Ox 94% on R/A; ss 11:45 BP 128 / 62; Pulse 58; Resp 17; Pulse Ox 96% ; kr3 13:25 BP 138 / 54; Pulse 58; Resp 17; Pulse Ox 97% on R/A; kr3 Andree Coma Score: 10:08 Eye Response: spontaneous(4). Verbal Response: oriented(5). Motor Response: obeys ss commands(6). Total: 15. Trauma Score (Adult): 10:08 Eye Response: to voice(0); Verbal Response: confused(1); Motor Response: withdraws from ss pain(1); Systolic BP: > 89 mm Hg(4); Respiratory Rate: 10 to 29 per min(4); [place] Score: 11; Trauma Score: 10; This is baseline for patient. Laceration: 12:50 Wound Repair of 3cm ( 1.2in ) subcutaneous laceration to forehead. Linear shaped.. kb Distal neuro/vascular/tendon intact. Anesthesia: Local anesthetic administered with 2 mls of 1% lidocaine. Wound prep: Extensive cleansing with hibiclenz by me, Wound irrigation with saline by me. Skin closed with 4 6-0 Prolene using simple sutures and sterile technique. Patient tolerated well. MDM: 10:08 Patient medically screened. kb 14:04 Data reviewed: vital signs, nurses notes. kb 14:14 Historians other than the Patient: EMS: [facility]. Counseling: I had a detailed kb discussion with the patient and/or guardian regarding: the historical points, exam findings, and any diagnostic results supporting the discharge/admit diagnosis, radiology results, the need for outpatient follow up, a family practitioner, to return to the emergency department if symptoms worsen or persist or if there are any questions or concerns that arise at home. 08/31 10:08 Order name: CT Traumagram (Head C Spine CAP wo con); Complete Time: 11:31 kb 08/31 12:15 Order name: Wound Care; Complete Time: 13:15 kb 08/31 12:25 Order name: Dressing - Wound; Complete Time: 13:15 kb 08/31 12:25 Order name: Gloves, Sterile; Complete Time: 13:15 kb 08/31 12:25 Order name: Prolene, Sutures; Complete Time: 13:15 kb 08/31 12:25 Order name: Setup Suture Tray; Complete Time: 13:15 kb Administered Medications: 13:00 Drug: Lidocaine (1 %) 1 vials {Note: GIVEN BY PROVIDER AT BEDSIDE FOR LAC REPAIR.} kr3 Volume: 5 ml; Route: Infiltration; Disposition Summary: 08/31/22 12:52 Discharge Ordered Location: Home kb Condition: Stable kb Diagnosis - Fall from bed, initial encounter kb - Skin tear left forearm kb - Laceration without foreign body of forehead kb Followup: kb - With: Emergency Department - When: As needed - Reason: Worsening of condition Followup: kb - With: Private Physician - When: 2 - 3 days - Reason: Recheck today's complaints, Continuance of care, Re-evaluation by your physician Discharge Instructions: - Discharge Summary Sheet kb - Laceration Care, Adult, [id number] kb - Skin Tear, [id number] kb - Head Injury, Adult, [id number] kb Forms: - Medication Reconciliation Form kb - Thank You Letter kb - Antibiotic Education kb - Prescription Opioid Use kb Signatures: Dispatcher [employer] EDDE Kenna Shepherd, ANTONIA-C PIECE WORK CHECKER-Caryn Haile RN RN ss Becca Willoughby RN RN kr3 Corrections: (The following items were deleted from the chart) 14:05 13:58 Neuro: Orientation: to person, kb
[2022-08-31 14:58] VITALS: BP 138/54; O2SAT 97
== END 2022-08-31 14:39 | disposition home or self-care (01) ==
LOC: ER 10:04
PROC: 0HQ1XZZ Repair Face Skin, External Approach (ICD-10-PCS; principal; 2022-08-31)
DX: S01.81XA Laceration without foreign body of other part of head, initial encounter (principal); S51.812A Laceration without foreign body of left forearm, initial encounter; W06.XXXA Fall from bed, initial encounter; G30.9 Alzheimer's disease, unspecified; F02.80 Dementia in other diseases classified elsewhere, unspecified severity, without behavioral disturbance, psychotic disturbance, mood disturbance, and anxiety; I10 Essential (primary) hypertension
CPT/HCPCS: 70450; 71250; 72125; 99284; 12013; J2001

== ENCOUNTER 2022-09-05 12:58 | Inpatient (IN) | payer OTHER ==
[2022-09-05] MEDS ORDERED: NA CHLORIDE 0.9% 500 ML ONE (13:46)
[2022-09-05 13:49] LABS: Hematocrit 39.3 % (39.6-49.0); Lymphocytes % 30.9 % (15.3-44.8); MCV 87.1 fL (80-100); MPV 7.5 fL (7.6-11.3); RBC Red Blood Cell Count 4.51 M/uL (4.33-5.43)
--- NOTE | 2022-09-05 13:59 | RAD REPORT ---
EXAM DESCRIPTION: CT - Head Brain Wo Cont - 09/05/2022 1:42 pm CLINICAL HISTORY: Mental status change, unknown cause COMPARISON: Head Brain Wo Cont dated 11/18/2021 TECHNIQUE: All CT scans are performed using dose optimization technique as appropriate and may inclu de automated exposure control or mA/KV adjustment according to patient size. FINDINGS: No intracranial hemorrhage, hydrocephalus or extra-axial fluid collection.Moderate general ized brain atrophy is present with moderate periventricular and deep white matter chronic microvascul ar ischemic changes.No areas of brain edema or evidence of midline shift. The paranasal sinuses and mastoids are clear except for 2-3 cm left maxillary sinus mucous retention cyst. The calvarium is intact. IMPRESSION: No acute intracranial abnormality.
[2022-09-05 14:08] LABS: Albumin 2.8 g/dL (3.4-5.0); Bilirubin Total 0.5 mg/dL (0.2-1.0); Magnesium 2.2 mg/dL (1.6-2.4); Potassium 4.5 mmol/L (3.5-5.1); Protein, Total 7.1 g/dL (6.4-8.2); Troponin High Sensitivity 24.3 pg/mL (<58.9)
[2022-09-05 14:12] LABS: Urine Blood 3+ (Negative); Urine Glucose Negative (Negative); Urine Protein Trace (Negative)
[2022-09-05 14:34] LABS: Urine Bacteria None Seen /HPF (<20); Urine RBC >50 /HPF (None Seen)
--- NOTE | 2022-09-05 14:35 | RAD REPORT ---
EXAM DESCRIPTION: RAD - Chest Single View - 09/05/2022 2:10 pm CLINICAL HISTORY: ams Chest pain. COMPARISON: CHEST PA AND LAT 2 VIEW dated 09/09/2015; ABDOMEN 1 VIEW KUB dated 03/10/2014; ABDOMEN 1 V IEW KUB dated 12/26/2011; CHEST PA AND LAT 2 VIEW dated 04/05/2010 FINDINGS: Portable technique limits examination quality. Mild bilateral interstitial lung opacities, greater on the left. These may represent pulmonary edema or interstitial pneumonia. The heart is moderately enlarged. No displaced fractures.
--- NOTE | 2022-09-05 15:02 | EDPHYS ---
Physician Documentation [facility] Name: Leroy Palumbo Age: 86 yrs Sex: Male : 1935 Arrival Date: 09/05/2022 Time: 13:03 Bed 16 Private MD: ED Physician Scottie Clarke HPI: 09/05 14:28 This 86 yrs old Male presents to ER via EMS with complaints of Altered Mental Status. rt 14:28 The patient presents with decreased responsiveness. Onset: The symptoms/episode rt began/occurred at an unknown time. Unable to obtain HPI due to altered mental status, baseline dementia. Patient with history of dementia, baseline reportedly is able to speak, presents to the ED with a decrease mental status. Patient is not currently speaking. It is unclear when the onset of this was. There is no further history given by EMS. No history could be obtained per patient. Symptoms are moderate in severity, no other reported aggravating or alleviating factors. Historical: - Allergies: 13:06 No Known Allergies; aa5 - Home Meds: 13:08 Acidophilus Oral cap daily [Active]; apixaban 5 mg oral tab 1 tab 2 times per day aa5 [Active]; aspirin 81 mg Oral cap once daily [Active]; Bactrim DS 800-160 mg Oral tab every 12 hours [Active]; Cymbalta 60 mg oral cpDR once daily [Active]; Depakote 125 mg Oral TbEC 3 tabs at bedtime [Active]; Enulose 10 gram/15 mL oral soln 30 mL PRN for constipation [Active]; ipratropium-albuterol inhalation Inhl [Active]; losartan 50 mg oral tab once daily [Active]; Miralax 17 gram/dose Oral powd daily [Active]; acetaminophen-codeine 300-30 mg Oral tab every 6 hours [Active]; Vitamin C 500 mg Oral cpER daily [Active]; Vitamin D3 125 mcg (5,000 unit) oral tab every week [Active]; - PMHx: 13:06 Alzheimer's disease; Anxiety; atrial flutter; HTN; lymphedema; peripheral vascular aa5 disease; polyosteoarthritis; Depressive disorder; - PSHx: 13:06 R knee; aa5 - Immunization history:: Adult Immunizations unknown. - Social history:: Smoking status: unknown. - Family history:: not pertinent. ROS: 14:28 Unable to obtain ROS due to altered mental status, baseline dementia. rt Exam: 14:28 Constitutional: This is a well developed, well nourished patient who is awake, alert, rt and in no acute distress. Eyes: Pupils equal round and reactive to light, extra-ocular motions intact. Lids and lashes normal. Conjunctiva and sclera are non-icteric and not injected. Cornea within normal limits. Periorbital areas with no swelling, redness, or edema. Neck: Trachea midline, no thyromegaly or masses palpated, and no cervical lymphadenopathy. Supple, full range of motion without nuchal rigidity, or vertebral point tenderness. No Meningismus. Chest/axilla: Normal chest wall appearance and motion. Nontender with no deformity. No lesions are appreciated. Cardiovascular: Regular rate and rhythm with a normal S1 and S2. No gallops, murmurs, or rubs. Normal PMI, no JVD. No pulse deficits. Respiratory: Lungs have equal breath sounds bilaterally, clear to auscultation and percussion. No rales, rhonchi or wheezes noted. No increased work of breathing, no retractions or nasal flaring. Abdomen/GI: Soft, non-tender, with normal bowel sounds. No distension or tympany. No guarding or rebound. No evidence of tenderness throughout. Skin: Warm, dry with normal turgor. Normal color with no rashes, no lesions, and no evidence of cellulitis. 14:28 ENT: Dry mucous membranes. 14:28 Neuro: Nonverbal, good chairman ceo strength, does follow commands for hand squeeze. Does not appear to be weaker on the left side or the right side. No facial droop noted.. 14:28 Psych: Not assessable. 14:30 ECG was reviewed by the Attending Physician. rt Vital Signs: 13:03 BP 122 / 79; Pulse 66; Resp 14 S; Temp 98.0(A); Pulse Ox 97% on 4 lpm NC; aa5 15:00 BP 164 / 75; Pulse 77; Resp 15; Pulse Ox 100% ; bp 17:00 BP 156 / 77; Pulse 77; Resp 14; Pulse Ox 100% ; bp 18:30 BP 165 / 82; Pulse 79; Resp 12; Pulse Ox 97% ; bp MDM: 13:03 Patient medically screened. rt 15:02 Differential Diagnosis: CVA, electrolyte abnormality, sepsis, TIA, UTI, volume rt depletion. Data reviewed: vital signs, nurses notes, EMS record, lab test result(s), EKG, radiologic studies. Consideration of Admission/Observation Patient was admitted/placed on observation. Management of patient was discussed with the following: Hospitalist: will admit. I considered the following discharge prescriptions or medication management in the emergency department Medications were administered in the Emergency Department. See MAR. Historians other than the Patient: EMS: States that patient is off of baseline mental status. ED course: Patient presents to the ED with altered mental status. He appears to be dry, slight improvement with IV hydration. Labs are benign, CT scan shows no acute abnormalities. Presentation may represent a CVA, the timing of the onset is unknown, therefore, he is not a tPA or endovascular treatment candidate. Patient will be admitted for further evaluation.. 09/05 13:19 Order name: UA MICROSCOPIC; Complete Time: 14:39 rt 09/05 13:19 Order name: Lactate w/ 2H reflex if indic.; Complete Time: 14:39 rt 09/05 13:19 Order name: Magnesium; Complete Time: 14:39 rt 09/05 13:19 Order name: CBC with Diff; Complete Time: 14:39 rt 09/05 13:19 Order name: CMP; Complete Time: 14:39 rt 09/05 13:19 Order name: Troponin High Sensitivity; Complete Time: 14:39 rt 09/05 14:12 Order name: Urine Dipstick-Ancillary; Complete Time: 14:39 EDMS 09/05 15:04 Order name: SARS RAPID; Complete Time: 16:09 rt 09/05 16:09 Order name: NT PRO-BNP; Complete Time: 17:39 EDMS 09/05 16:15 Order name: T4 Free; Complete Time: 17:39 EDMS 09/05 16:15 Order name: Thyroid Stimulating Hormone; Complete Time: 17:39 EDMS 09/05 16:15 Order name: Urinalysis EDMS 09/05 16:15 Order name: Basic Metabolic Panel EDMS 09/05 16:15 Order name: Basic Metabolic Panel EDMS 09/05 13:19 Order name: Accucheck Blood Glucose; Complete Time: 13:35 rt 09/05 13:19 Order name: EKG; Complete Time: 13:20 rt 09/05 13:19 Order name: EKG - Nurse/Tech; Complete Time: 14:04 rt 09/05 13:19 Order name: CT Head Brain wo Cont; Complete Time: 14:39 rt 09/05 13:19 Order name: Chest Single View XRAY; Complete Time: 14:39 rt 09/05 13:19 Order name: Urine Dipstick-Ancillary (obtain specimen); Complete Time: 14:04 rt 09/05 16:09 Order name: Thorax Wo Con; Complete Time: 17:39 EDMS 09/05 16:15 Order name: Heart Healthy EDMS 09/05 16:15 Order name: CBC with Automated Diff EDMS 09/05 16:15 Order name: CBC with Automated Diff EDMS 09/05 16:15 Order name: NT PRO-BNP EDMS 09/05 16:15 Order name: NT PRO-BNP EDMS 09/05 18:11 Order name: Ammonia EDMS 09/05 18:36 Order name: ABG Arterial Blood Gas EDMS EC:30 Rate is 77 beats/min. Rhythm is regular, Normal Sinus Rhythm with No ectopy. QRS [place] rt is Normal. MA interval is normal. QRS interval is normal. QT interval is prolonged at 518 msec. No Q waves. Clinical impression: NSR w/ Non-specific ST/T Changes. Interpreted by me. Administered Medications: 13:45 Drug: NS 0.9% 500 ml Route: IV; Rate: bolus; Site: left wrist; bp 18:31 Follow up: IV Status: Completed infusion; IV Intake: 500ml bp Disposition Summary: 09/05/22 15:02 Hospitalization Ordered Hospitalization Status: Observation rt Provider: Leroy Moreno rt Location: Telemetry/MedSurg (observation) rt Condition: Fair rt Problem: new rt Symptoms: are unchanged rt Bed/Room Type: Standard rt Room Assignment: 429(09/05/22 16:59) bd Diagnosis - Altered mental status, unspecified rt Forms: - Medication Reconciliation Form rt - SBAR form rt Signatures: Dispatcher [employer] EDMS Renetta Osei Audri RN RN aa5 Cameron Barakat RN RN bp Scottie Clarke MD MD rt Corrections: (The following items were deleted from the chart) 16:59 15:02 rt bd
--- NOTE | 2022-09-05 15:02 | ER ---
Nurse's Notes [facility] Name: Leroy Palumbo Age: 86 yrs Sex: Male : 1935 Arrival Date: 09/05/2022 Time: 13:03 Bed 16 Private MD: Diagnosis: Altered mental status, unspecified Presentation: 09/05 13:03 Chief complaint: EMS states: sent here from [facility] for AMS, aa5 [place] reports pt is normally A\T\O x 1 and able to speak and today he's been A\T\O X 0 and not speaking. EMS reports pt was recently seen here for fall and UTI, FSBG 91, O2 via NC at 4L. Pt has been taking Bactrim DS since 08/31/22. Coronavirus screen: At this time, the client does not indicate any symptoms associated with coronavirus-19. Ebola Screen: Patient denies travel to an Ebola-affected area in the 21 days before illness onset. Initial Sepsis Screen: Does the patient meet any 2 criteria? Altered Mental Status. Does the patient have a suspected source of infection? No. Patient's initial sepsis screen is negative. Risk Assessment: Do you want to hurt yourself or someone else? Unable to obtain. Onset of symptoms was September 05, 2022. 13:03 Acuity: LOI 2 aa5 13:03 Method Of Arrival: EMS: [facility] aa5 Triage Assessment: 13:10 General: Appears in no apparent distress. unkempt, Behavior is drowsy. Pain: Unable to bp use pain scale. Does not appear to understand pain scale. EENT: No deficits noted. Neuro: Oriented to none. Cardiovascular: No deficits noted. Respiratory: No deficits noted. GI: No signs and/or symptoms were reported involving the gastrointestinal system. : No signs and/or symptoms were reported regarding the genitourinary system. Derm: No deficits noted. Musculoskeletal: No deficits noted. Historical: - Allergies: 13:06 No Known Allergies; aa5 - Home Meds: 13:08 Acidophilus Oral cap daily [Active]; apixaban 5 mg oral tab 1 tab 2 times per day aa5 [Active]; aspirin 81 mg Oral cap once daily [Active]; Bactrim DS 800-160 mg Oral tab every 12 hours [Active]; Cymbalta 60 mg oral cpDR once daily [Active]; Depakote 125 mg Oral TbEC 3 tabs at bedtime [Active]; Enulose 10 gram/15 mL oral soln 30 mL PRN for constipation [Active]; ipratropium-albuterol inhalation Inhl [Active]; losartan 50 mg oral tab once daily [Active]; Miralax 17 gram/dose Oral powd daily [Active]; acetaminophen-codeine 300-30 mg Oral tab every 6 hours [Active]; Vitamin C 500 mg Oral cpER daily [Active]; Vitamin D3 125 mcg (5,000 unit) oral tab every week [Active]; - PMHx: 13:06 Alzheimer's disease; Anxiety; atrial flutter; HTN; lymphedema; peripheral vascular aa5 disease; polyosteoarthritis; Depressive disorder; - PSHx: 13:06 R knee; aa5 - Immunization history:: Adult Immunizations unknown. - Social history:: Smoking status: unknown. - Family history:: not pertinent. Screenin:10 [facility] ED Fall Risk Assessment (Adult) History of falling in the last 3 months, bp including since admission No falls in past 3 months (0 pts). Abuse screen: Denies threats or abuse. Denies injuries from another. Nutritional screening: No deficits noted. Tuberculosis screening: No symptoms or risk factors identified. 18:51 The patient is alert, able to follow commands. NOT TALKING NOT TALKING UNSURE The db patient is able to swallow own secretions with no drooling or need for suction. Patient tolerated one teaspoon of water. No drooling, immediate coughing, gurgling, or clearing of the throat was noted. The patient tolerated 90mL of water. No drooling, immediate coughing, gurgling, or clearing of the throat was noted. The patient passed the bedside swallow screening. Oral medications may be given as ordered. Contact Physician for further diet orders. Assessment: 13:10 General: SEE TRIAGE NOTE. bp 15:00 Reassessment: No changes from previously documented assessment. Patient and/or family bp updated on plan of care and expected duration. Pain level reassessed. 17:00 Reassessment: ADMIT IN PROCESS. bp 18:28 Reassessment: ADMIT COMPLETE, REPORT TO KELECHI RUIZ. bp 18:52 Reassessment: Patient appears in no apparent distress at this time. PATIENT EATING db DINNER. STAFF AT BEDSIDE WITH PATIENT. Vital Signs: 13:03 BP 122 / 79; Pulse 66; Resp 14 S; Temp 98.0(A); Pulse Ox 97% on 4 lpm NC; aa5 15:00 BP 164 / 75; Pulse 77; Resp 15; Pulse Ox 100% ; bp 17:00 BP 156 / 77; Pulse 77; Resp 14; Pulse Ox 100% ; bp 18:30 BP 165 / 82; Pulse 79; Resp 12; Pulse Ox 97% ; bp ED Course: 13:03 Patient arrived in ED. aa5 13:03 Scottie Clarke MD is Attending Physician. rt 13:03 Cameron Barakat, SARA is Primary Nurse. bp 13:03 Arm band placed on Patient placed in an exam room, on a stretcher. aa5 13:05 Triage completed. aa5 13:10 Patient has correct armband on for positive identification. Bed in low position. Call bp light in reach. Side rails up X2. 13:35 Inserted saline lock: 22 gauge in left wrist, using aseptic technique. Blood collected. bp 13:43 CT Head Brain wo Cont In Process Unspecified. EDMS 14:00 Straight cath inserted, using sterile technique, 14 Fr. Specimen obtained. bp 14:12 Chest Single View XRAY In Process Unspecified. EDMS 15:01 Leroy Moreno MD is Hospitalizing Provider. rt 15:17 SARS RAPID Sent. bc6 15:17 COVID swab sent to lab. bc6 18:30 No provider procedures requiring assistance completed. Patient admitted, IV remains in bp place. 18:51 Client placed on continuous cardiac and pulse oximetry monitoring. NIBP monitoring db applied. Warm blanket given. Administered Medications: 13:45 Drug: NS 0.9% 500 ml Route: IV; Rate: bolus; Site: left wrist; bp 18:31 Follow up: IV Status: Completed infusion; IV Intake: 500ml bp Medication: 13:10 VIS not applicable for this client. bp Intake: 18:31 IV: 500ml; Total: 500ml. bp Outcome: 15:02 Decision to Hospitalize by Provider. rt 18:30 Admitted to Med/surg via stretcher, room 429, Report called to KELECHI RUIZ bp 18:30 Condition: stable 18:30 Instructed on the need for admit. 19:13 Patient left the ED. as6 Signatures: Dispatcher [employer] EDMS Anastacia Willoughby RN RN aa5 Cameron Barakat RN RN Carlos Boles RN RN as6 Ritika Rahman, SARA RN Scottie Marquez MD MD rt Emma Schafer 6 Corrections: (The following items were deleted from the chart) 13:13 13:03 Chief complaint: EMS states: sent here from [facility] for AMS, aa5 [place] reports pt is normally A\T\O x 1 and able to speak and today he's been A\T\O X 0 and not speaking. EMS reports pt was recently seen here for fall and UTI, FSBG 91, O2 via NC at 4L. aa5
[2022-09-05 15:38] LABS: SARS-CoV-2 Antigen Rapid Res Negative (Negative)
[2022-09-05] MEDS ORDERED: TRAMADOL HCL 50 MG TAB PO PRN (16:06)
[2022-09-05] MEDS ORDERED: ACETAMINOPHEN 325 MG TABLET PO PRN (16:06)
[2022-09-05] MEDS ORDERED: HOME MED 1 EA UNK (Lactulose [Enulose] 10 GM/15 ML Solution) PO PRN (16:08)
[2022-09-05] MEDS ORDERED: ALBUTEROL 2.5 MG/3 ML NEB SOL NEB PRN (16:12)
[2022-09-05] MEDS ORDERED: ONDANSETRON 4 MG/2 ML VIAL IV PRN (16:12)
--- NOTE | 2022-09-05 16:18 | P.HP ---
Certification for Inpatient Patient admitted to: Observation With expected LOS: <2 Midnights Patient will require the following post-hospital care: None Practitioner: I am a practitioner with admitting privileges, knowledge of patient current condition, hospital course, and medical plan of care. Services: Services provided to patient in accordance with Admission requirements found in Title 42 Section 412.3 of the Code of Federal Regulations <BrownlexieSuleman jamesgavino James - Last Filed: 09/06/22 01:40> Patient History Date of Service: 09/05/22 Reason for admission: AMS History of Present Illness: Patient is an 86-year-old male with a past medical history significant for hypertension, constipation, atrial flutter, anxiety disorder, PVD, depression, Alzheimer's disease, lymphedema, polyarthritis who presents with complaint of altered mental status. Patient is currently alert and oriented x0. Per medical records and nursing staff reports patient was noted to be nonverbal, lethargic and drowsy today. At baseline, patient able to speak although spoken words are often jumbled. No other signs or symptoms reported. Symptoms are aggravated or relieved by nothing. Patient was brought to the hospital for medical evaluation. - Past Medical/Surgical History Diabetic: No -: Dementia -: PVD -: Lymphedema -: Osteoarthritis -: Incontinence -: DVT -: Atrial flutter -: Hypertension -: Bilateral cataract removal -: Left knee replacement -: Neck & back sx Psychosocial/ Personal History: Patient is a resident of [facility] [place] - Social History Smoking Status: Unknown if ever smoked Alcohol use: No CD- Drugs: No Caffeine use: No Place of Residence: Longterm <Manfred Hsu - Last Filed: 09/06/22 01:40> Date of Service: 09/06/22 <Leroy Moreno - Last Filed: 09/06/22 18:38> Allergies No Known Allergies Allergy (Unverified 11/18/21 13:24) Home Medications: Apixaban [Eliquis] 5 mg PO BID 11/18/21 Ascorbic Acid [Vitamin C*] 500 mg PO DAILY 11/18/21 Aspirin 81 mg PO DAILY 11/18/21 Collagenase [Santyl Ointment*] 1 appl TP DAILY 11/18/21 Divalproex [Depakote Sprinkle*] 250 mg PO BID 11/18/21 Lactulose [Enulose] 30 ml PO DAILYPRN PRN 11/18/21 Losartan Potassium [Cozaar*] 50 mg PO DAILY 11/18/21 Multivitamin with Minerals [One Daily Plus Minerals] 1 each PO DAILY 11/18/21 Zinc Oxide 1 appl TP DAILY 11/18/21 Zinc Sulfate [Zinc Sulfate*] 220 mg PO DAILY 11/18/21 Smz./Tmp. [Bactrim Ds 800 MG/160 MG*] 1 tab PO BID #14 tab 11/23/21 Collagenase [Santyl Ointment*] 1 appl TOP DAILY tube 12/02/21 Review of Systems is unable to be obtained (Unable to assess. Pt confused at baseline) <Manfred Hsu - Last Filed: 09/06/22 01:40> Physical Examination - Physical Exam General: Alert, In no apparent distress, Demented HEENT: Atraumatic, PERRLA, Mucous membr. moist/pink, EOMI, Sclerae nonicteric Neck: Supple, 2+ carotid pulse no bruit, No LAD, Without JVD or thyroid abnormality Respiratory: Diminished Cardiovascular: No edema, No murmurs Capillary refill: <2 Seconds Gastrointestinal: Normal bowel sounds, Soft and benign, No tenderness Musculoskeletal: No clubbing, No swelling, No contractures, No tenderness Integumentary: No rashes, No breakdown, No significant lesion Neurological: Normal speech, Normal tone, Normal affect Lymphatics: No axilla or inguinal lymphadenopathy - Studies Laboratory Data (last 24 hrs) 09/05/22 13:35: WBC 6.50, Hgb 13.1 L, Hct 39.3 L, Plt Count 189 09/05/22 13:35: Sodium 134 L, Potassium 4.5, BUN 16, Creatinine 0.82, Glucose 90, Magnesium 2.2, Total Bilirubin 0.5, AST 21, ALT 20, Alkaline Phosphatase 71 <Manfred Hsu - Last Filed: 09/06/22 01:40> - Studies Laboratory Data (last 24 hrs) 09/06/22 03:10: Sodium 133 L, Potassium 4.3, BUN 17, Creatinine 0.67 L, Glucose 94 09/06/22 03:10: WBC 6.00, Hgb 12.7 L, Hct 38.2 L, Plt Count 197 Microbiology Data (last 24 hrs): 09/05/22 17:42 Blood - Blood Anaerobic Blood Culture - Final 09/05/22 17:37 Blood - Blood Anaerobic Blood Culture - Final <Leroy Moreno - Last Filed: 09/06/22 18:38> Assessment and Plan - Plan --Acute encephalopathy. CT head unremarkable for any acute intracranial abnormality. Patient has baseline dementia and confused at baseline.UA negative. Continue supportive care. --Hypertension. Poorly controlled. Continue home medications and hydralazine as needed. Cath --History of atrial flutter. Continue Eliquis. --Anxiety disorder\depression. Continue home medications when appropriate. -- Polyarthritis. We will manage pain on current pain medication regimen. --History of PVD. Continue home medication when appropriate. --Right foot wound. Wound care consult initiated. Continue supportive care. --Hx of DVT\PVD. Continue Aspirin and Eliquis --History of constipation. Continue home medication. --Hypertension. Poorly controlled. Continue home medications and hydralazine as needed. --DVT prophylaxis with Eliquis. Discharge Plan: Longterm Plan to discharge in: 48 Hours - Advance Directives Does patient have a Living Will: Yes Does patient have a Durable POA for Healthcare: No - Code Status/Comfort Care Code Status Assessed: Yes Physician Review: Patient Assessed, Agree with Above Assessment and Plan Critical Care: No <Manfred Hsu - Last Filed: 09/06/22 01:40> Physician Review: Patient Assessed, Agree with Above Assessment and Plan <Leroy Moreno - Last Filed: 09/06/22 18:38>
[2022-09-05] MEDS ORDERED: LACTULOSE 20 GM/30 ML UCUP PO PRN (16:26)
[2022-09-05] MEDS ORDERED: ZINC OXIDE 40% 30 GM TUBE TOP PRN (16:39)
[2022-09-05 16:48] LABS: Thyroid Stimulating Hormone 3.96 uIU/mL (0.358-3.740)
[2022-09-05] MEDS ORDERED: AZITHROMYCIN IV 500 MG in NA CHLORIDE 0.9% 250 ML IVPB SCH (17:00)
[2022-09-05] MEDS ORDERED: CEFTRIAXONE 1,000 MG in NA CHLORIDE 0.9% 50 ML IVPB SCH (17:00)
--- NOTE | 2022-09-05 17:27 | RAD REPORT ---
EXAM DESCRIPTION: CT - Thorax Wo Con CLINICAL HISTORY: Chest pain R O PNA COMPARISON: CT CHEST ABDOMEN W CONTRAST dated 09/09/2015 FINDINGS: There is mild linear atelectasis in both lung bases posteriorly. The lungs are otherwise c lear. No pleural thickening or pleural effusion. No pneumothorax. No axillary, mediastinal or hilar adenopathy. Cardiac size is enlarged mildly. Vertebroplasty cement is seen in the lumbar spine. No gross upper abdominal finding. All CT scans are performed using dose optimization technique as appropriate and may include automated exposure control or mA/KV adjustment according to patient size. IMPRESSION: Negative study.
[2022-09-05 18:34] LABS: Blood O2 Saturation 97.1 % (92-98.5)
[2022-09-05] MEDS: ALBUTEROL 2.5 MG/3 ML NEB SOL NEB SCH ×2 (20:00→20:20)
[2022-09-05] MEDS: IPRATROPIUM BROM 0.5MG/2.5ML NEB SCH (20:20)
[2022-09-05] MEDS: DIVALPROEX NA 125 MG CAP PO SCH (20:44)
[2022-09-05] MEDS: APIXABAN 5 MG TABLET PO SCH (20:44)
[2022-09-05 21:00] VITALS: BMI 27.8
[2022-09-06] MEDS: ALBUTEROL 2.5 MG/3 ML NEB SOL NEB SCH ×4 (01:35→19:50)
[2022-09-06] MEDS: IPRATROPIUM BROM 0.5MG/2.5ML NEB SCH ×4 (01:35→19:50)
[2022-09-06 03:43] LABS: Absolute Lymphocytes (CBC) 1.7 K/uL (0.7-4.9); Hematocrit 38.2 % (39.6-49.0); Lymphocytes % 28.5 % (15.3-44.8); MCV 87.6 fL (80-100); MPV 7.5 fL (7.6-11.3); RBC Red Blood Cell Count 4.36 M/uL (4.33-5.43)
[2022-09-06 04:09] LABS: Potassium 4.3 mmol/L (3.5-5.1)
--- NOTE | 2022-09-06 07:37 | EKG ---
Test Date: 2022-09-05 Test Time: 13:51:33 Glass Blowing Instructor: BP MEASUREMENT RESULTS: Intervals: Rate: 77 MD: 152 QRSD: 90 QT: 458 QTc: 518 [place]: P: -27 MD: 152 QRS: -17 T: 5 INTERPRETIVE STATEMENTS: Normal sinus rhythm Possible Anterior infarct, age undetermined Prolonged QT Abnormal ECG Compared to ECG 11/17/2021 18:43:14 Myocardial infarct finding now present Prolonged QT interval now present Atrial fibrillation no longer present Ventricular premature complex(es) no longer present Electronically Signed On 09-06-22 07:35:50 BUSINESS DEVELOPMENT SALES EXECUTIVE by Chris Romano
[2022-09-06] MEDS: ASPIRIN 81 MG CHEWABLE TABLET PO SCH (08:09)
[2022-09-06] MEDS: COLLAGENASE TOP SCH (08:10)
[2022-09-06] MEDS: DIVALPROEX NA 125 MG CAP PO SCH (08:10)
[2022-09-06] MEDS: APIXABAN 5 MG TABLET PO SCH ×2 (08:10→20:03)
[2022-09-06] MEDS ORDERED: LOSARTAN POTASSIUM 50 MG TABLET PO SCH (09:00)
[2022-09-06] MEDS ORDERED: MULTIVIT W/ MINERAL TAB PO SCH (09:00)
[2022-09-06] MEDS ORDERED: ZINC SULFATE 220 MG CAP PO SCH (09:00)
[2022-09-06] MEDS ORDERED: ZINC OXIDE TP SCH (09:00)
[2022-09-06] MEDS ORDERED: MULTIVITAMIN WITH MINERALS PO SCH (09:00)
[2022-09-06] MEDS ORDERED: ASCORBIC ACID 500 MG TABLET PO SCH (09:00)
[2022-09-06] MEDS: Ringers Lactate 1,000 ML IV SCH (15:48)
[2022-09-06] MEDS ORDERED: Ringers Lactate 1,000 ML IV ONE (15:50)
--- NOTE | 2022-09-06 18:40 | P.PN ---
Subjective Date of Service: 09/06/22 Chief Complaint: AMS No acute events overnight per nursing staff. History is unable to be obtained. He is minimally verbal. He tells me "good morning," but does not answer questions or respond to any further commands. Review of Systems is unable to be obtained Physical Examination - Vital Signs Temperature: 98.1 F Blood Pressure: 92/48 Pulse: 83 Respirations: 16 Pulse Ox (%): 91 - Physical Exam General: Alert, In no apparent distress, Oriented x1 HEENT: Atraumatic, Mucous membr. moist/pink, Sclerae nonicteric Neck: JVD not distended Respiratory: Clear to auscultation bilaterally, Normal air movement Cardiovascular: No edema, Regular rate/rhythm, Normal S1 S2, No gallops, No rubs, No murmurs Gastrointestinal: Normal bowel sounds, Soft and benign, Non-distended, No tenderness, No rebound, No guarding Musculoskeletal: No clubbing Integumentary: No rashes Neurological: Dementia - Studies Laboratory Data (last 24 hrs) 09/06/22 03:10: Sodium 133 L, Potassium 4.3, BUN 17, Creatinine 0.67 L, Glucose 94 09/06/22 03:10: WBC 6.00, Hgb 12.7 L, Hct 38.2 L, Plt Count 197 Microbiology Data (last 24 hrs): 09/05/22 17:42 Blood - Blood Anaerobic Blood Culture - Final 09/05/22 17:37 Blood - Blood Anaerobic Blood Culture - Final Assessment And Plan - Plan # Advanced Alzheimer's Dementia # History of Cerebrovascular Accident (October 2021) # History of Atrial Flutter # Prior Right Lower Extremity Deep Venous Thrombosis # Peripheral Vascular Disease # Anxiety # Depressive Disorder # Hypertension Today on rounds, I had the opportunity to speak with his , Ms. Jha, and his daughter, Ms. Walker. They endorse that his current mental status is not too far from his baseline. They state that he has been clinically deteriorating significantly since his stroke in October 2021. I had an extensive goals of care discussion with them at bedside. They presented paperwork that he had signed prior to his advanced dementia. The paperwork indicated that he would wish to pursue comfort measures. They state that, based on their prior discussions with him, he would not wish to have any aggressive interventions in his current clinical state. They state that a DO NOT RESUSCITATE CODE STATUS is most consistent with his wishes. They have requested that we switch him to DO NOT RESUSCITATE, which has been completed in the EMR. We discussed further on whether or not he would wish to have a diseasedirected management plan versus a symptomdirected management plan. They replied, that he always stated that he would wish to be comfortable if he was in a situation that he is in now. They have requested that he enroll in hospice services, and I explained what hospice services entail. They agreed to proceed as they believe that this is most consistent with his wishes. Case management was consulted and [facility] hospice was arranged, with plan for admission to hospice services tomorrow morning. In the interim, will hold his home antihypertensives given his soft blood pressures and hold his divalproex in hopes of improvement in his mental status. Currently, he is not able to safely consume a diet due to his significant aspiration risk. Leroy Moreno M.D.
[2022-09-07] MEDS: IPRATROPIUM BROM 0.5MG/2.5ML NEB SCH ×3 (01:15→14:00)
[2022-09-07] MEDS: ALBUTEROL 2.5 MG/3 ML NEB SOL NEB SCH ×3 (01:15→14:00)
[2022-09-07] MEDS: Ringers Lactate 1,000 ML IV SCH (06:22)
--- NOTE | 2022-09-07 08:29 | P.DS ---
Admission Date: 09/06/22 Discharge Date: 09/07/22 Disposition: HOSPICE-HOME Discharge Condition: FAIR Reason for Admission: [facility] Hospital Course: DIAGNOSES: # Advanced Alzheimer's Dementia # History of Cerebrovascular Accident (October 2021) # History of Atrial Flutter # Prior Right Lower Extremity Deep Venous Thrombosis # Peripheral Vascular Disease # Anxiety # Depressive Disorder # Hypertension HOSPITAL COURSE: Mr. Leroy Palumbo is an 86 year old male with a past medical history significant for advanced Alzheimer's dementia, history of cerebrovascular accident, atrial flutter, prior right lower extremity deep venous thrombosis, peripheral vascular disease, anxiety, depressive disorder, and hypertension who was admitted to the [facility] on 09/05/2022 for altered mental status. He was admitted to the Medicine service. Upon further evaluation, I had the opportunity to speak with his , Ms. Jha, and his daughter, Ms. Walker. They endorsed that his current mental status is not too far from his baseline. They stated that he has been clinically deteriorating significantly since his stroke in October 2021. After an extensive goals of care discussion with them at bedside, they elected that hospice services would be most consistent with his wishes. Additionally, they presented paperwork that he had signed prior to his advanced dementia, which indicated that he would wish to pursue comfort measures. They stated that, based on their prior discussions with him, he would not wish to have any aggressive interventions in his current clinical state. They switched him to a DO NOT RESUSCITATE code status yesterday and elected to enroll him in [facility] home hospice. This morning, he was admitted to [facility] home hospice services and will be under the care of Dr. Kaba. His family members were given the opportunity to ask questions and reported no further questions. Furthermore, all questions were answered to the best of my ability. A copy of this discharge summary will be sent to the above providers to facilitate continuity of care. Today, I personally spent 20 minutes on his case, of which greater than 50% of the time was spent in coordination of care as described above. - Physical Exam General: Alert, In no apparent distress, Oriented x1 HEENT: Atraumatic, Mucous membr. moist/pink, Sclerae nonicteric Neck: JVD not distended Respiratory: Clear to auscultation bilaterally, Normal air movement Cardiovascular: No edema, Regular rate/rhythm, No murmurs Gastrointestinal: Soft and benign, Non-distended, No tenderness Musculoskeletal: No clubbing Integumentary: No rashes Neurological: Dementia Vital Signs/Physical Exam: Temp Pulse Resp BP Pulse Ox 98.3 F 84 17 127/88 96 09/07/22 04:00 09/07/22 04:00 09/07/22 04:00 09/07/22 04:00 09/07/22 04:00 Laboratory Data at Discharge: WBC 6.00 K/uL (4.3-10.9) 09/06/22 03:10 Hgb 12.7 g/dL (13.6-17.9) L 09/06/22 03:10 Hct 38.2 % (39.6-49.0) L 09/06/22 03:10 Plt Count 197 K/uL (152-406) 09/06/22 03:10 Sodium 133 mmol/L (136-145) L 09/06/22 03:10 Potassium 4.3 mmol/L (3.5-5.1) 09/06/22 03:10 BUN 17 mg/dL (7-18) 09/06/22 03:10 Creatinine 0.67 mg/dL (0.70-1.30) L 09/06/22 03:10 Glucose 94 mg/dL (74-106) 09/06/22 03:10 Magnesium 2.2 mg/dL (1.6-2.4) 09/05/22 13:35 Total Bilirubin 0.5 mg/dL (0.2-1.0) 09/05/22 13:35 AST 21 U/L (15-37) 09/05/22 13:35 ALT 20 U/L (16-61) 09/05/22 13:35 Alkaline Phosphatase 71 U/L (45-117) 09/05/22 13:35 Home Medications: RX: Apixaban [Eliquis] 5 mg PO BID 11/18/21 RX: Ascorbic Acid [Vitamin C*] 500 mg PO DAILY 11/18/21 RX: Aspirin 81 mg PO DAILY 11/18/21 RX: Collagenase [Santyl Ointment*] 1 appl TP DAILY 11/18/21 RX: Divalproex [Depakote Sprinkle*] 250 mg PO BID 11/18/21 RX: Lactulose [Enulose] 30 ml PO DAILYPRN PRN 11/18/21 RX: Losartan Potassium [Cozaar*] 50 mg PO DAILY 11/18/21 RX: Multivitamin with Minerals [One Daily Plus Minerals] 1 each PO DAILY 11/18/21 RX: Zinc Oxide 1 appl TP DAILY 11/18/21 RX: Zinc Sulfate [Zinc Sulfate*] 220 mg PO DAILY 11/18/21 RX: Smz./Tmp. [Bactrim Ds 800 MG/160 MG*] 1 tab PO BID #14 tab 11/23/21 RX: Collagenase [Santyl Ointment*] 1 appl TOP DAILY tube 12/02/21 Diet: Pureed Activity: Bedrest Followup: Osvaldo Kaba MD [Primary Care Provider] - HOSPICE CARE,IP [UNKNOWN] - Time spent managing pt's care (in minutes): 20
[2022-09-07] MEDS: COLLAGENASE TOP SCH (08:49)
[2022-09-07] MEDS: ASPIRIN 81 MG CHEWABLE TABLET PO SCH (08:49)
[2022-09-07] MEDS: APIXABAN 5 MG TABLET PO SCH (08:49)
[2022-09-07 09:12] VITALS: O2SAT 95
[2022-09-07 12:04] VITALS: BP 109/53; TEMP 98.6
== END 2022-09-07 15:18 | disposition hospice, home (50) | DRG 179 ==
LOC: ER 12:58 → ERHOLD 16:04 → 4TH 18:32 → OBSVTOIN 09-06 16:21
PROVIDERS: ADMIT Internal Medicine; ATTEND Internal Medicine
DX: J15.6 Pneumonia due to other Gram-negative bacteria (principal); I10 Essential (primary) hypertension; F41.9 Anxiety disorder, unspecified; F32.A Depression, unspecified; I48.91 Unspecified atrial fibrillation; M13.0 Polyarthritis, unspecified; I73.9 Peripheral vascular disease, unspecified; L89.616 Pressure-induced deep tissue damage of right heel; G30.9 Alzheimer's disease, unspecified; F02.80 Dementia in other diseases classified elsewhere, unspecified severity, without behavioral disturbance, psychotic disturbance, mood disturbance, and anxiety; Z66 Do not resuscitate; Z51.5 Encounter for palliative care; Z79.82 Long term (current) use of aspirin; Z79.01 Long term (current) use of anticoagulants; Z86.73 Personal history of transient ischemic attack (TIA), and cerebral infarction without residual deficits; Z96.652 Presence of left artificial knee joint; Z86.718 Personal history of other venous thrombosis and embolism; Z79.899 Other long term (current) drug therapy; Z20.822 Contact with and (suspected) exposure to COVID-19
CPT/HCPCS: 36415; 51702; 70450; 71045; 71250; 80048; 80053; 81003; 81015; 82140; 82607; 82805; 83605; 83735; 83880; 84439; 84443; 84484; 85025; 87040; 87811; 93005; 94640; 96360; 96361; 99285; G0378; J7040; J7120; J7613; J7644

== ENCOUNTER 2023-04-01 07:01 | Emergency (ER) | payer OTHER ==
--- NOTE | 2023-04-01 08:18 | RAD REPORT ---
EXAM DESCRIPTION: CT - CTHCSPWOC - 04/01/2023 7:35 am CLINICAL HISTORY: fall with facial injury COMPARISON: Head Brain Wo Cont dated 09/05/2022 TECHNIQUE: Axial thin cut noncontrast CT images of the head were obtained. Axial thin cut noncontrast CT images of the cervical spine were obtained. Multiplanar reformatted images were generated and reviewed. All CT scans are performed using dose optimization technique as appropriate and may include automated exposure control or mA/KV adjustment according to patient size. FINDINGS: CT HEAD WITHOUT CONTRAST: No acute hemorrhage, hydrocephalus or extra-axial collection is identified.Moderate diffuse parenchym al volume loss. Right centrum semiovale focus of hypoattenuation, may relate to small remote infarct, stable. Other periventricular hypodensities, most suggestive of chronic small vessel ischemic change s, stable.No areas of brain edema or midline shift. The bony facial findings are evaluated separatel y. The paranasal sinuses and mastoids are clear.The calvarium is intact. CT CERVICAL SPINE WITHOUT CONTRAST: No fracture or subluxation.Level degenerative changes with up to moderate neural foraminal narrowing. No prevertebral soft tissues swelling is identified. IMPRESSION: No acute traumatic intracranial or cervical spine findings. Chronic findings as above.
--- NOTE | 2023-04-01 08:21 | RAD REPORT ---
EXAM DESCRIPTION: CT - CTFB CLINICAL HISTORY: R/O NASAL FX, PAIN, FALL INJURY COMPARISON: No comparisons TECHNIQUE: Axial noncontrast 2 mm thick images of the face were obtained with sagittal and coronal r econstruction images. All CT scans are performed using dose optimization technique as appropriate and may include automated exposure control or mA/KV adjustment according to patient size. FINDINGS: Minimally displaced nasal bone fractures. Nondisplaced fracture line extends towards the g labella on the right. Mild overlying soft tissue swelling. No other acute facial bone fracture is see n.The mandible is intact. The globes and orbital contents are grossly unremarkable.Maxilla and mandible are edentulous.The para nasal sinuses and mastoids are clear. IMPRESSION: Minimally displaced bilateral nasal bone fractures as above.
--- NOTE | 2023-04-01 08:58 | ER ---
Nurse's Notes [facility] Name: Leroy Palumbo Age: 87 yrs Sex: Male : 1935 Arrival Date: 04/01/2023 Time: 07:01 Bed 4 Private MD: Diagnosis: Fall from standing;Fracture of nasal bones, initial encounter for open fracture;Unspecified injury of head, initial encounter Presentation: 04/01 07:07 Chief complaint: EMS states: Pt reportedly was trying to get out of bed and fell on his jb4 face. He has a laceration between his eye brow and possibly a broken nose. Coronavirus screen: At this time, the client does not indicate any symptoms associated with coronavirus-19. Ebola Screen: No symptoms or risks identified at this time. Risk Assessment: Do you want to hurt yourself or someone else? Unable to obtain. Onset of symptoms was April 01, 2023. Transition of care: patient was received from another setting of care (long-term care facility). 07:07 Method Of Arrival: EMS: [facility] 07:07 Acuity: LOI 3 jb4 11:28 Initial Sepsis Screen: Does the patient meet any 2 criteria? No. Patient's initial bp sepsis screen is negative. Does the patient have a suspected source of infection? No. Patient's initial sepsis screen is negative. 11:28 Initial Sepsis Screen: Does the patient meet any 2 criteria? No. Patient's initial jl7 sepsis screen is negative. Does the patient have a suspected source of infection? No. Patient's initial sepsis screen is negative. Historical: - Allergies: 07:09 No Known Allergies; jb4 - PMHx: 07:09 Alzheimer's disease; Anxiety; atrial flutter; depressive disorder; HTN; lymphedema; jb4 peripheral vascular disease; polyosteoarthritis; - PSHx: 07:09 R knee; jb4 - Immunization history:: Adult Immunizations unknown. - Social history:: Smoking status: unknown. Screenin:00 [facility] ED Fall Risk Assessment (Adult) History of falling in the last 3 months, bp including since admission No falls in past 3 months (0 pts). Abuse screen: Denies threats or abuse. Denies injuries from another. Nutritional screening: No deficits noted. Tuberculosis screening: No symptoms or risk factors identified. Assessment: 07:12 General: Appears in no apparent distress. uncomfortable, Behavior is calm. Pain: Unable jl7 to use pain scale. Does not appear to understand pain scale. FLACC scale score is 2 out of 10. Neuro: Level of Consciousness is awake, Oriented to none at baseline. Cardiovascular: Patient's skin is warm and dry. Respiratory: Airway is patent Respiratory effort is even, unlabored, Respiratory pattern is regular, symmetrical. Derm: Skin is pink, warm \T\ dry. Injury Description: Laceration sustained to bridge of nose. 07:31 Reassessment: Pt to CT. jl7 09:08 Reassessment: [facility] CONTACTED FOR TRANSPORT. bp 11:26 Reassessment: EMS AT B/S FOR TRANSPORT. bp Vital Signs: 07:12 BP 136 / 87; Pulse 79; Resp 15; Temp 98.1; Pulse Ox 100% ; jl7 08:07 BP 139 / 76; Pulse 78; Resp 15; Pulse Ox 100% ; jl7 11:00 BP 154 / 69; Pulse 81; Resp 15; Pulse Ox 100% ; jl7 ED Course: 07:00 Patient has correct armband on for positive identification. Bed in low position. Call bp light in reach. Side rails up X2. 07:02 Patient arrived in ED. rv1 07:05 Gio Nair MD is Attending Physician. kdr 07:09 Triage completed. jb4 07:09 Arm band placed on right wrist. jb4 07:11 Fareed Gastelum, SARA is Primary Nurse. jl7 07:35 CT Head C Spine In Process Unspecified. EDMS 07:35 Facial Bones W/ Mpr In Process Unspecified. EDMS 08:25 Assist provider with laceration repair on bridge of nose that was between 2.6 to 7.5 cm jl7 using sutures. Set up tray. Performed by Kenna GARCIA Dressed with nonstick gauze and paper tape Patient tolerated well. 11:00 Provided Education on: N/A. jl7 11:27 Patient did not have IV access during this emergency room visit. bp Administered Medications: 08:04 Drug: Lidocaine Infiltration (1 %) 1 vials Volume: 5 ml; Route: Infiltration; bp 11:27 Follow up: Response: No adverse reaction jl7 Medication: 11:00 VIS not applicable for this client. jl7 Outcome: 08:58 Discharge ordered by . kdr 11:27 Discharged to assisted. Report called to [facility] bp 11:27 Condition: stable 11:27 Discharge instructions given to assisted. 11:28 Patient left the ED. bp Signatures: Dispatcher [employer] EDGio Lemon MD MD kdr Bryson, James, RN RN jb4 Fareed Gastelum RN RN jl7 Cameron Barakat RN RN bp Carmen Carlos [facility]
--- NOTE | 2023-04-01 08:58 | EDPHYS ---
Physician Documentation [facility] Name: Leroy Palumbo Age: 87 yrs Sex: Male : 1935 Arrival Date: 04/01/2023 Time: 07:01 Bed 4 Private MD: ED Physician Gio Nair HPI: 04/01 07:37 This 87 yrs old Male presents to ER via EMS with complaints of Fall Injury. kdr 07:37 Patient was brought from a local [facility]dc after apparently getting out of bed and kdr falling. Patient has a history of falls. Patient has baseline dementia and so is difficult to interview but he does respond with his name when asked.. Details of fall: The patient fell from an upright position, while standing. 07:37 Onset: The symptoms/episode began/occurred suddenly, just prior to arrival. Severity of kdr symptoms: At their worst the symptoms were mild in the emergency department the symptoms are unchanged. The patient has not experienced similar symptoms in the past. The patient has not recently seen a physician. Historical: - Allergies: 07:09 No Known Allergies; jb4 - PMHx: 07:09 Alzheimer's disease; Anxiety; atrial flutter; depressive disorder; HTN; lymphedema; jb4 peripheral vascular disease; polyosteoarthritis; - PSHx: 07:09 R knee; jb4 - Immunization history:: Adult Immunizations unknown. - Social history:: Smoking status: unknown. ROS: 07:37 Constitutional: Unable to accurately assess due to patient's baseline dementia kdr 07:37 Unable to obtain ROS due to baseline dementia. Exam: 07:37 Constitutional: This is a well developed, well nourished patient who is awake, alert, kdr and in no acute distress. Eyes: Pupils equal round and reactive to light, extra-ocular motions intact. Lids and lashes normal. Conjunctiva and sclera are non-icteric and not injected. Cornea within normal limits. Periorbital areas with no swelling, redness, or edema. Neck: Trachea midline, no thyromegaly or masses palpated, and no cervical lymphadenopathy. Supple, full range of motion without nuchal rigidity, or vertebral point tenderness. No Meningismus. Cardiovascular: Regular rate and rhythm with a normal S1 and S2. No gallops, murmurs, or rubs. Normal PMI, no JVD. No pulse deficits. Respiratory: Lungs have equal breath sounds bilaterally, clear to auscultation and percussion. No rales, rhonchi or wheezes noted. No increased work of breathing, no retractions or nasal flaring. Abdomen/GI: Soft, non-tender, with normal bowel sounds. No distension or tympany. No guarding or rebound. No evidence of tenderness throughout. Back: No spinal tenderness. No costovertebral tenderness. Full range of motion. MS/ Extremity: Pulses equal, no cyanosis. Neurovascular intact. Full, normal range of motion. 07:37 Head/face: Noted is a laceration(s), that is jagged, of the nose. Vital Signs: 07:12 BP 136 / 87; Pulse 79; Resp 15; Temp 98.1; Pulse Ox 100% ; jl7 08:07 BP 139 / 76; Pulse 78; Resp 15; Pulse Ox 100% ; jl7 11:00 BP 154 / 69; Pulse 81; Resp 15; Pulse Ox 100% ; jl7 Laceration: 08:17 Wound Repair of 2cm ( 0.8in ) subcutaneous laceration to bridge of nose. Irregularly kb shaped.. Distal neuro/vascular/tendon intact. Anesthesia: Wound infiltrated with 2 mls of 1% lidocaine. Wound prep: Extensive cleansing with hibiclenz by ky, Wound irrigation with saline by ky. Skin closed with 6 5-0 fast absorbing gut using simple sutures and sterile technique. Patient tolerated well. MDM: 08:58 Patient medically screened. kdr 15:16 Data reviewed: vital signs, nurses notes, lab test result(s), radiologic studies. kdr 04/01 07:15 Order name: CT Head C Spine; Complete Time: 08:56 kdr 04/01 07:32 Order name: Facial Bones W/ Mpr; Complete Time: 08:56 EDMS 04/01 08:00 Order name: Dressing - Wound; Complete Time: 08:04 kb 04/01 08:00 Order name: Gloves, Sterile; Complete Time: 08:04 kb 04/01 08:00 Order name: Setup Suture Tray; Complete Time: 08:04 kb Administered Medications: 08:04 Drug: Lidocaine Infiltration (1 %) 1 vials Volume: 5 ml; Route: Infiltration; bp 11:27 Follow up: Response: No adverse reaction jl7 Disposition: 08:57 Co-signature as Attending Physician, Gio Nair MD I agree with the assessment and kdr plan of care. Disposition Summary: 04/01/23 08:58 Discharge Ordered Location: Home kdr Problem: new kdr Symptoms: have improved kdr Condition: Stable kdr Diagnosis - Fall from standing kdr - Fracture of nasal bones, initial encounter for open fracture kdr - Unspecified injury of head, initial encounter kdr Followup: kdr - With: Private Physician - When: 2 - 3 days - Reason: If symptoms return, Further diagnostic work-up, Recheck today's complaints, Continuance of care, Re-evaluation by your physician Discharge Instructions: - Discharge Summary Sheet kdr - Facial Laceration, [id number] kdr - Head Injury, Adult, [id number] kdr Forms: - Medication Reconciliation Form kdr - Thank You Letter kdr - Antibiotic Education kdr - Patient Portal Instructions kdr - Leadership Thank You Letter kdr Prescriptions: - Cephalexin 500 mg Oral Capsule - take 1 capsule by ORAL route every 8 hours for 7 days; 21 capsule; Refills: 0, kdr Product Selection Permitted Signatures: Dispatcher [employer] EDMS Kenna Shepherd, SOLUTION SPECIALIST-C SOLUTION SPECIALIST-Gio Onofre MD MD kdr Konstantin Toledo, RN RN jb4 Cameron Barakat, RN RN Fareed Wheeler RN jl7
[2023-04-01 11:36] VITALS: TEMP 98.1; O2SAT 100
[2023-04-01 11:39] VITALS: BP 154/69
== END 2023-04-01 11:28 | disposition home or self-care (01) ==
LOC: ER 07:01
PROC: 0HQ1XZZ Repair Face Skin, External Approach (ICD-10-PCS; principal; 2023-04-01)
DX: S02.2XXB Fracture of nasal bones, initial encounter for open fracture (principal); W18.30XA Fall on same level, unspecified, initial encounter; Y92.122 Bedroom in nursing home as the place of occurrence of the external cause; G30.9 Alzheimer's disease, unspecified; F02.80 Dementia in other diseases classified elsewhere, unspecified severity, without behavioral disturbance, psychotic disturbance, mood disturbance, and anxiety
CPT/HCPCS: 70450; 70486; 72125; 76377; 99284